=== PATIENT | female | born 1960 | race Caucasian/White ===

== ENCOUNTER 2024-03-06 17:47 | Inpatient (IN) ==
[2024-03-06 19:01] LABS: Basophils # (auto) 0.08 K/uL (0.00-0.20); Basophils % (auto) 0.7 %; Eosinophils # (auto) 0.34 K/uL (0.00-0.50); Hematocrit (blood only) 37.9 % (37.0-47.0); Hemoglobin 12.4 g/dl (12.0-16.0); Immature Granulocytes # (auto) 0.05 K/uL (0.01-0.20); Immature Granulocytes % (auto) 0.4 %; Lymphocytes % (auto) 14.1 %; Mean Corpuscular Hemoglobin 28.1 pg (25.0-34.0); Mean Corpuscular Hgb Conc 32.7 g/dL (32.0-36.0); Mean Corpuscular Volume 85.7 fL (80.0-100.0); Mean Platelet Volume 9.8 fL (9.4-12.4); Monocytes % (auto) 8.8 %; Platelet Count 412 K/uL (130-400); RDW Coefficient of Variation 12.2 % (11.5-14.5); RDW Standard Deviation 38.6 fL (36.4-46.3); Red Blood Count 4.42 M/uL (4.20-5.40); White Blood Count 11.37 K/ul (4.8-10.8)
[2024-03-06 19:14] LABS: Albumin Level 3.9 gm/dl (3.4-5.0); BUN Creatinine Ratio 28.1 (10-20); Bilirubin,Total 0.8 mg/dl (0.2-1.0); Calcium 9.1 mg/dl (8.6-10.3); Creatinine Clr Calc Pharmacy 42.2 ml/min; Globulin 3.8 gm/dl (2.5-4.0); Potassium 4.1 mmol/L (3.5-5.1); Total Protein 7.7 gm/dl (6.0-8.3)
[2024-03-06 19:26] LABS: INR 1.1 (0.9-1.1); Partial Thromboplastin Time 27 Seconds (21-31)
[2024-03-06 19:32] LABS: Troponin I High Sensitivity 63.6 pg/ml (0-14)
[2024-03-06] MEDS: OPTIRAY 320 125ml IV ONE (19:58)
--- NOTE | 2024-03-06 20:31 | Emergency Department Note ---
Impression & Plan CHF exacerbation, Elevated troponin, Swelling of both lower extremities ED Provider Note NAME: LILI AGUILAR AGE: 63 SEX: F : 1960 ARRIVES VIA: Walk-In INFORMANT: Patient, ED PROVIDER(S): Power Bazan MD CHIEF COMPLAINT: Leg swelling HPI: This is a 63-year-old female with history of cardiomyopathy, CHF presenting for leg swelling. Patient notes that bilateral legs have been swollen. They have actually decreasing in size with increased Lasix and compression stockings. However she notes that she has new right-sided leg pain. Is painful to palpation with some redness. She has had previous history of DVT and is not taking blood thinners. She notes she was sent in by the PCP today otherwise. No shortness of breath or chest pain. No pleurisy. No history of PEs. ROS: See above HPI for pertinent positives & negatives. A total of 10 systems reviewed and were otherwise negative. PAST MEDICAL HISTORY: See Below PAST SURGICAL HISTORY: See Below FAMILY HISTORY: See Below SOCIAL HISTORY: See Below HOME MEDICATIONS: See Below ALLERGIES: See Below VITALS: See Below PHYSICAL EXAMINATION: General: resting comfortably in no acute distress Head: Normocephalic and atraumatic Eyes: Normal inspection, extraocular muscles intact Ear, nose, throat: Normal external exam Neck: Normal range of motion Respiratory: lungs clear to auscultation bilaterally Cardiovascular: Regular rate/rhythm, no murmur GI: soft, nontender, no guarding or rebound Extremities: Bilateral lower extremity 2+ pulses, no other deformities swelling with, tender to palpation of anterior ornelas Neuro: The patient awake and alert, appropriately conversive, no focal deficits, symmetric faces Skin: Warm, dry, and intact MEDICAL DECISION MAKING: This is 63-year-old female with history of cardiomyopathy, CHF presenting for leg swelling. Concern for PE, CHF, ACS. -ECG independently interpreted by me with normal sinus rhythm, rate of 87, normal axis, normal QRS, normal QTc, no ST segment elevations consistent with STEMI criteria, T wave inversions in leads I, II and aVL -I was called about this patient as she had a positive troponin. I went to see her emergently. With new right lower extremity pain previous history of DVT, I have high concern for PE clinically. Will do CTA of the chest to rule this out. Patient with a history of CKD with only 1 kidney. I did go over risk/benefits and that time is nature of a PE. She is comfortable with these risks. -Will do DVT study as well to help elucidate for lower extremity edema versus CHF. DVT not noted on tech read -There are significant delay in CT reading however I see no large pulm embolism such a saddle PE or significant pneumonia. Will admit for help with troponin, likely CHF otherwise -Care discussed with Dr. Berry for admission Differential diagnosis: CHF, cardiomyopathy, PE, ACS Independent History obtained from: Diagnostics interpreted by me: ECG: ECG independently interpreted by me with likely sinus rhythm Ventricular rate of 87, normal QRS, normal QTc, no ST segment elevations consistent with STEMI criteria Cardiac Monitoring: An order was placed for continuous cardiac monitoring. The monitor shows a rate of 79 with sinus rhythm. Past Med/Surg History Problem List (Updated 03/07/24 @ 01:03 by Power Bazan MD) Swelling of both lower extremities (Acute) Elevated troponin (Acute) CHF exacerbation (Acute) Acute CHF Swelling of lower extremity Diabetic peripheral neuropathy associated with type 2 diabetes mellitus Cardiomyopathy Proliferative diabetic retinopathy associated with type 2 diabetes mellitus History of amputation of toe Diabetic nephropathy associated with type 2 diabetes mellitus Type 2 diabetes mellitus with insulin therapy Loss of protective sensation of skin of foot Chronic kidney disease, stage 3 (Acute) Dyslipidemia (Acute) Hypertension (Acute) Obesity (BMI 30-39.9) (Acute) PAD (peripheral artery disease) (Acute) Type 2 diabetes mellitus (Acute) Vitamin D deficiency (Acute) Surgical History (Updated 07/21/20 @ 10:36 by Jeovanny Champion PA-C) Hx of section Hx of unilateral nephrectomy History of tonsillectomy Family History (Updated 07/06/19 @ 13:24 by Brendan Vicente MD) Mother Diabetes Stroke Sister Stroke Father Diabetes Social History (Updated 07/06/19 @ 13:24 by Brendan Vicente MD) Smoking Status: Never smoker Hx Alcohol Use: No Preferred Language: Afghan Feels Safe at Home: Yes Allergies Allergies Allergy/AdvReac Type Severity Reaction Status Date / Time ALEX Inhibitors Allergy Verified 11/26/23 09:01 brompheniramine [From Brovex] Allergy Verified 11/26/23 09:01 codeine Allergy Verified 11/26/23 09:01 Home Meds Home Medications Medication Instructions Recorded Confirmed ezetimibe 10 mg tablet 10 mg PO QAM 10/14/18 03/06/24 aspirin 81 mg tablet,delayed 81 mg PO QAM 10/08/19 03/06/24 release (Adult Low Dose Aspirin) metoprolol succinate 50 mg 50 mg PO BID 07/21/20 03/06/24 tablet,extended release 24 hr insulin glargine 100 unit/mL (3 34 unit subcut BID 09/14/22 03/06/24 mL) subcutaneous pen (Lantus Solostar U-100 Insulin) blood-glucose sensor (FreeStyle 05/30/23 03/06/24 Jamal 3 Sensor device) furosemide 40 mg tablet 40 mg PO .COMPLEX 05/30/23 03/06/24 insulin aspart U-100 100 unit/mL See Rx Instructions .Route .COMPLEX 05/30/23 03/06/24 (3 mL) subcutaneous pen (Novolog FlexPen U-100 Insulin aspart) magnesium oxide 400 mg PO QAM 05/30/23 03/06/24 atorvastatin 80 mg tablet 80 mg PO HS 03/06/24 03/06/24 isosorbide mononitrate 60 mg 60 mg PO QAM 03/06/24 03/06/24 tablet,extended release 24 hr Previous Rx's Medication Instructions Recorded BD Ultra-Fine Kinza Pen Needle 32 #100 ea 10/22/19 gauge x 5/32" (pen needle, diabetic) blood sugar diagnostic (FreeStyle #100 ea 07/22/20 Precision Remigio Strips) liraglutide 0.6 mg/0.1 mL (18 mg/3 1.8 mg (0.3 mL) subcut DAILY 02/18/24 mL) subcutaneous pen injector days #27 mL (Victoza 3-Clint) Results & Data (ED) Vital Signs Vital Signs - 24 hr 03/06/24 18:05 03/06/24 20:25 03/06/24 20:34 Temperature 36.5 C Temperature Source Temporal Artery Scan Pulse Rate 95 H 112 H Pulse Rate [Apical] Pulse Rate [Right Finger] Respiratory Rate 18 Respiratory Effort / Characteristics Non-Labored Respiratory Depth Normal Respiratory Pattern Blood Pressure 133/69 Blood Pressure [Right Arm] Blood Pressure Mean 90 Blood Pressure Mean [Right Arm] Pulse Oximetry 94 95 Oxygen Delivery Method Room Air Room Air Sepsis Recent Fever Within 48 Hours No Sepsis New/Unexplained Change in Mental Status No Sepsis Action Taken by Nursing No Action Required 03/06/24 20:34 03/06/24 22:43 03/07/24 00:00 Temperature Temperature Source Pulse Rate Pulse Rate [Apical] 88 Pulse Rate [Right Finger] 84 81 Respiratory Rate 22 20 20 Respiratory Effort / Characteristics Non-Labored Spontaneous Respiratory Depth Normal Respiratory Pattern Regular Blood Pressure Blood Pressure [Right Arm] 141/72 H 147/83 H 129/59 L Blood Pressure Mean Blood Pressure Mean [Right Arm] 95 104 82 Pulse Oximetry 95 95 93 Oxygen Delivery Method Room Air Room Air Room Air Sepsis Recent Fever Within 48 Hours Sepsis New/Unexplained Change in Mental Status Sepsis Action Taken by Nursing 03/07/24 00:19 Temperature Temperature Source Pulse Rate 79 Pulse Rate [Apical] Pulse Rate [Right Finger] Respiratory Rate Respiratory Effort / Characteristics Respiratory Depth Respiratory Pattern Blood Pressure Blood Pressure [Right Arm] Blood Pressure Mean Blood Pressure Mean [Right Arm] Pulse Oximetry Oxygen Delivery Method Sepsis Recent Fever Within 48 Hours Sepsis New/Unexplained Change in Mental Status Sepsis Action Taken by Nursing Laboratory Data 03/06/24 18:30 03/06/24 18:30 Lab Results 03/06/24 03/06/24 Range/Units 18:30 20:12 WBC 11.37 H (4.8-10.8) K/ul RBC 4.42 (4.20-5.40) M/uL Hgb 12.4 (12.0-16.0) g/dl Hct 37.9 (37.0-47.0) % MCV 85.7 (80.0-100.0) fL MCH 28.1 (25.0-34.0) pg MCHC 32.7 (32.0-36.0) g/dL RDW Std Deviation 38.6 (36.4-46.3) fL RDW Coeff of Sreedhar 12.2 (11.5-14.5) % Plt Count 412 H (130-400) K/uL MPV 9.8 (9.4-12.4) fL Immature Gran % (Auto) 0.4 % Neut % (Auto) 73.0 % Lymph % (Auto) 14.1 % Edwards % (Auto) 8.8 % Eos % (Auto) 3.0 % Baso % (Auto) 0.7 % Neut # (Auto) 8.30 H (1.40-6.50) K/uL Lymph # (Auto) 1.60 (1.20-3.40) K/uL Edwards # (Auto) 1.00 H (0.11-0.59) K/uL Eos # (Auto) 0.34 (0.00-0.50) K/uL Baso # (Auto) 0.08 (0.00-0.20) K/uL Immature Gran # (Auto) 0.05 (0.01-0.20) K/uL PT 12.0 (9.0-12.0) Seconds INR 1.1 (0.9-1.1) APTT 27 (21-31) Seconds PTT Ratio 1.0 Sodium 136 (136-145) mmol/L Potassium 4.1 (3.5-5.1) mmol/L Chloride 100 (98-107) mmol/L Carbon Dioxide 27 (21-32) mmol/L Anion Gap 9 (3-11) BUN 50 H (6-23) mg/dl Creatinine 1.78 H (0.6-1.2) mg/dl Est Cr Clr Drug Dosing 42.2 ml/min eGFR 31.89 BUN/Creatinine Ratio 28.1 H (10-20) Glucose 109 H (70-99(Fasting)) mg/dl Calcium 9.1 (8.6-10.3) mg/dl Total Bilirubin 0.8 (0.2-1.0) mg/dl AST 19 (13-39) U/L ALT 12 (7-52) U/L Alkaline Phosphatase 111 H (34-104) U/L Troponin I High Sens 63.6 H* 51.5 H* D (0-14) pg/ml B-Natriuretic Peptide 153 H (0-100) pg/ml Total Protein 7.7 (6.0-8.3) gm/dl Albumin 3.9 (3.4-5.0) gm/dl Globulin 3.8 (2.5-4.0) gm/dl Albumin/Globulin Ratio 1.0 (0.9-2) Administered Medications Discontinued Medications Furosemide (Furosemide 40 Mg/4 Ml Vial) 30 mg IV NOW STA Stop: 03/06/24 23:23 Last Admin: 03/06/24 23:32 Dose: 30 mg Documented By: EMB Ioversol (Optiray 320 125ml) 115 ml IV ONCE ONE Stop: 03/06/24 19:59 Last Admin: 03/06/24 19:58 Dose: 115 ml Documented By: JUAN FRANCISCO Imaging Data Radiologist's Impression: Chest X-Ray 03/06/24 18:11 EXAM: XR chest 1V not portable CLINICAL HISTORY: Chest pain. TECHNIQUE: An X-ray image of the chest is obtained in AP projection. COMPARISON: No prior studies are available for comparison. FINDINGS: Pulmonary Parenchyma: Lungs are clear bilaterally. No evidence of consolidation, collapse, or focal opacities. No pulmonary nodules are identified. No evidence of pleural effusion or pleural thickening. Heart and Mediastinum: Heart size and shape are normal. No mediastinal widening or masses. Mild bilateral hilar vascular congestion is seen. Bony Thorax: Bony thorax appears intact without fractures or deformities. Soft Tissues: Soft tissues overlying the chest wall are unremarkable. IMPRESSION: Mild bilateral hilar vascular congestion is seen. NO other significant abnormality noted. Clinical correlation is advised. Electronically signed by Jefe Astudillo 03-06-2024 8:39 PM Chest CTA 03/06/24 19:34 Exam(s): CTA CHEST IV Amt: 115 ml optiray 320 EXAM: CT Angiography Chest With Intravenous Contrast CLINICAL HISTORY: PE. TECHNIQUE: Axial computed tomographic angiography images of the chest with intravenous contrast. MIPS images were created and reviewed. CTDI is 28 mGy and DLP is 775 mGy-cm. Automated exposure control was utilized for the study. A dose lowering technique was utilized adhering to the principles of ALARA. MIP reconstructed images were created and reviewed. COMPARISON: Chest radiograph 03/06/2024 FINDINGS: Pulmonary arteries: Unremarkable. No pulmonary embolus. Aorta: Mild atherosclerosis. No thoracic aortic aneurysm. Lungs: Interseptal thickening is concerning for pulmonary edema. Mosaic attenuation of the lungs. There is a 7 mm left upper lobe pulmonary nodule. Pleural space: Unremarkable. No significant effusion. No pneumothorax. Heart: Coronary artery calcifications are present. No cardiomegaly. No significant pericardial effusion. No evidence of RV dysfunction. Bones/joints: There are degenerative changes of the spine. No acute fracture. Soft tissues: Unremarkable. Lymph nodes: Unremarkable. No enlarged lymph nodes. IMPRESSION: 1. No pulmonary embolus. 2. Interseptal thickening is concerning for pulmonary edema. 3. Mosaic attenuation of the lungs. This could relate to air trapping, pneumonitis or underlying emphysema. Clinical correlation is recommended. 4. There is a 7 mm left upper lobe pulmonary nodule. Fleischner Society Guidelines for low-risk or high-risk patients suggest a follow-up chest CT at 6-12 months. If unchanged, recommend an additional follow-up CT at 18-24 months due to the morphologic appearance of this nodule. Electronically signed by: Paulette Gaines MD 03/07/24 00:16 AM Discharge Plan Visit Data Chief Complaint: Swelling/Edema to Extremity Stated Complaint: RT LEG SWELLING AND PAINFUL AND A BUMP ON ANKLE ED Provider: Power Bazan Discharge Problem: CHF exacerbation, Elevated troponin, Swelling of both lower extremities Forms Stand Alone Forms: [employer] [facility] Prescriptions Prescriptions: No Action ezetimibe 10 mg tablet 10 mg PO QAM (DME) pen needle, diabetic [BD Ultra-Fine Kinza Pen Needle] 32 gauge x 5/32" needle See Dose Instructions .ROUTE .MEDSUPPLY Qty: 100 3RF Dose Instruction: As directed Rx Instructions: use once daily with victoza (DME) FreeStyle Precision Remigio Strips Strip See Rx Instructions .ROUTE .MEDSUPPLY Qty: 100 3RF Rx Instructions: test blood sugar once daily furosemide 40 mg tablet 40 mg PO .COMPLEX Rx Instructions: 40 mg orally bid alternating with tid; Victoza 3-Clint 0.6 mg/0.1 mL (18 mg/3 mL) pen injector 1.8 mg subcut DAILY 90 Days Qty: 27 3RF Lantus Solostar U-100 Insulin 100 unit/mL (3 mL) insulin pen 34 unit subcut BID insulin aspart U-100 [Novolog FlexPen U-100 Insulin] 100 unit/mL (3 mL) insulin pen See Rx Instructions .ROUTE .COMPLEX Rx Instructions: Inject 18 u with meals plus sliding scale. Reduce to 9 u if active or eating less than usual. up to TDD 60 units aspirin [Adult Low Dose Aspirin] 81 mg tablet,delayed release (DR/EC) 81 mg PO QAM metoprolol succinate 50 mg tablet extended release 24 hr 50 mg PO BID magnesium oxide 400 mg magnesium capsule 400 mg PO QAM (DME) FreeStyle Jamal 3 Sensor Device See Rx Instructions .Route Rx Instructions: As directed atorvastatin 80 mg tablet 80 mg PO HS isosorbide mononitrate 60 mg tablet extended release 24 hr 60 mg PO QAM Referrals Referrals: Promise Sandoval MD [Primary Care Provider] -
--- NOTE | 2024-03-06 20:39 | XRay Report ---
EXAM: XR chest 1V not portable CLINICAL HISTORY: Chest pain. TECHNIQUE: An X-ray image of the chest is obtained in AP projection. COMPARISON: No prior studies are available for comparison. FINDINGS: Pulmonary Parenchyma: Lungs are clear bilaterally. No evidence of consolidation, collapse, or focal opacities. No pulmonary nodules are identified. No evidence of pleural effusion or pleural thickening. Heart and Mediastinum: Heart size and shape are normal. No mediastinal widening or masses. Mild bilateral hilar vascular congestion is seen. Bony Thorax: Bony thorax appears intact without fractures or deformities. Soft Tissues: Soft tissues overlying the chest wall are unremarkable. IMPRESSION: Mild bilateral hilar vascular congestion is seen. NO other significant abnormality noted. Clinical correlation is advised. Electronically signed by Jefe Astudillo 03-06-2024 8:39 PM
--- NOTE | 2024-03-06 23:24 | History & Physical Report ---
Date of Service March 06, 2024 Assessment & Plan (1) Acute CHF: Plan: 63-year-old female with past medical history significant for type 2 diabetes, diabetic peripheral neuropathy, hyperlipidemia, idiopathic cardiomyopathy, chronic diastolic CHF, hypertension, history of CAD, obesity, GERD, CKD stage III, bilateral vitreous hemorrhage, history of renal cell carcinoma, solitary kidney presents with right lower extremity swelling and pain. Patient says her left lower extremity swelling is same as before. But right lower extremity is more swollen since last 2 -3 weeks and progressively getting worse. Last couple of weeks she is having pain in the right lower extremity. And she developed erythema in the right lower extremity about a week ago. Able to put weight on the leg. Denies any fevers. Denies any chest pain. Has shortness of breath on exertion which seems to progressively worsen. Has dry cough. Somewhat constipated. Denies blood in stool or black stools. Micturating okay. No nausea. Appetite is okay. Currently no headache. No dizziness. Vision is okay. No earache or runny nose or sore throat. Hemodynamics are okay. 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 History of chronic right heart failure Will hold home p.o. Lasix Will place on IV Lasix 40 mL twice daily Daily weights and I's and O's Will follow CTA chest Will follow echo Telemetry cardiac consult in a.m. for further recommendation Right lower extremity worsening edema and erythema and pain We will follow Dopplers Empiric Rocephin for possible cellulitis Will follow procalcitonin levels Monitor the response Mild elevation of troponin Denies any chest pain Mostly demand ischemia Will follow serial enzymes and echo Type 2 diabetes Will cut back on light Lantus to 15 units twice daily as patient currently n.p.o. Sliding scale Will monitor CKD stage III Presented creatinine 1.7 close to baseline Will follow repeat labs History of nonobstructive CAD On aspirin, statin and beta-pepe History of renal cell carcinoma status post right nephrectomy in 2001 Peripheral vascular disease Amputation of left toes and amputation of Right fifth toe Status post excision of metatarsal head left foot for osteomyelitis in May 2022 On aspirin and statin Hyperlipidemia On statin and Zetia Hypertension On metoprolol succinate, Imdur and diuretics Will monitor DVT prophylaxis Heparin subcu Disposition Telemetry Full code. History of Present Illness Chief Complaint: Right lower extremity pain and swelling Primary Care Provider: Promise Sandoval MD 63-year-old female with past medical history significant for type 2 diabetes, diabetic peripheral neuropathy, hyperlipidemia, idiopathic cardiomyopathy, chronic diastolic CHF, hypertension, history of CAD, obesity, GERD, CKD stage III, bilateral vitreous hemorrhage, history of renal cell carcinoma, solitary kidney presents with right lower extremity swelling and pain. Patient says her left lower extremity swelling is same as before. But right lower extremity is more swollen since last 2 -3 weeks and progressively getting worse. Last couple of weeks she is having pain in the right lower extremity. And she developed erythema in the right lower extremity about a week ago. Able to put weight on the leg. Denies any fevers. Denies any chest pain. Has shortness of breath on exertion which seems to progressively worsen. Has dry cough. Somewhat constipated. Denies blood in stool or black stools. Micturating okay. No nausea. Appetite is okay. Currently no headache. No dizziness. Vision is okay. No earache or runny nose or sore throat. Hemodynamics are okay. Past medical history. As mentioned above Past surgical history. Amputation of left third toe. Amputation of left second toe. . Colonoscopy. Colonoscopy with 30 mm polyp removed. Removal of right kidney for renal cell cancer. Tonsillectomy and adenoidectomy. Social history. . No smoking. No alcohol use. No drug use. Family history. Mother had diabetes. Osteoarthritis. Father had diabetes. Sister has diabetes. Brother has diabetes. Allergies Allergy/AdvReac Type Severity Reaction Status Date / Time ALEX Inhibitors Allergy Verified 11/26/23 09:01 brompheniramine [From Brovex] Allergy Verified 11/26/23 09:01 codeine Allergy Verified 11/26/23 09:01 Home Medications Medication Instructions Recorded Confirmed Type ezetimibe 10 mg tablet 10 mg PO QAM 10/14/18 03/06/24 History aspirin 81 mg tablet,delayed 81 mg PO QAM 10/08/19 03/06/24 History release (Adult Low Dose Aspirin) BD Ultra-Fine Kinza Pen Needle 32 #100 ea 10/22/19 03/06/24 Rx gauge x 5/32" (pen needle, diabetic) metoprolol succinate 50 mg 50 mg PO BID 07/21/20 03/06/24 History tablet,extended release 24 hr blood sugar diagnostic (FreeStyle #100 ea 07/22/20 03/06/24 Rx Precision Remigio Strips) insulin glargine 100 unit/mL (3 34 unit subcut BID 09/14/22 03/06/24 History mL) subcutaneous pen (Lantus Solostar U-100 Insulin) blood-glucose sensor (FreeStyle 05/30/23 03/06/24 History Jamal 3 Sensor device) furosemide 40 mg tablet 40 mg PO .COMPLEX 05/30/23 03/06/24 History insulin aspart U-100 100 unit/mL See Rx Instructions .Route .COMPLEX 05/30/23 03/06/24 History (3 mL) subcutaneous pen (Novolog FlexPen U-100 Insulin aspart) magnesium oxide 400 mg PO QAM 05/30/23 03/06/24 History liraglutide 0.6 mg/0.1 mL (18 mg/3 1.8 mg (0.3 mL) subcut DAILY 90 02/18/24 03/06/24 Rx mL) subcutaneous pen injector days #27 mL (Victoza 3-Clint) atorvastatin 80 mg tablet 80 mg PO HS 03/06/24 03/06/24 History isosorbide mononitrate 60 mg 60 mg PO QAM 03/06/24 03/06/24 History tablet,extended release 24 hr Past Med/Surg History Problem List (Updated 03/07/24 @ 01:03 by Power Bazan MD) Swelling of both lower extremities (Acute) Elevated troponin (Acute) CHF exacerbation (Acute) Acute CHF Swelling of lower extremity Diabetic peripheral neuropathy associated with type 2 diabetes mellitus Cardiomyopathy Proliferative diabetic retinopathy associated with type 2 diabetes mellitus History of amputation of toe Diabetic nephropathy associated with type 2 diabetes mellitus Type 2 diabetes mellitus with insulin therapy Loss of protective sensation of skin of foot Chronic kidney disease, stage 3 (Acute) Dyslipidemia (Acute) Hypertension (Acute) Obesity (BMI 30-39.9) (Acute) PAD (peripheral artery disease) (Acute) Type 2 diabetes mellitus (Acute) Vitamin D deficiency (Acute) Surgical History (Updated 07/21/20 @ 10:36 by Jeovanny Champion PA-C) Hx of section Hx of unilateral nephrectomy History of tonsillectomy Family History (Updated 07/06/19 @ 13:24 by Brendan Vicente MD) Mother Diabetes Stroke Sister Stroke Father Diabetes Social History (Updated 07/06/19 @ 13:24 by Brendan Vicente MD) Smoking Status: Never smoker Second Hand Exposure: No; Do You Dip or Chew Tobacco: No; Hx Alcohol Use: No Hx Substance Use: No Preferred Language: Romanian Communication Ability: Effective [employer] Super[employer] Required: No Beliefs That Will Affect Care: None Current Living Situation: Spouse and Family Current Living Situation Comment: In laws Other Information That Helps Us Care for You: No Feels Safe at Home: Yes Safety Concerns: Feels Safe At This Time Assistive Devices: Glasses Review of Systems Review of Systems: All systems reviewed & are unremarkable except as noted in HPI & below Physical Exam Physical Exam: General- Not in distress Head- atraumatic Eyes- PERRL. ENT- oropharynx clear Neck- supple, no JVD. Lungs- clear to auscultation no wheezing or crackles. Heart- regular rhythm; no murmur, no gallop. Abdomen- normal bowel sounds, soft, nontender, no distension Extremities- b/l lower extremity edema present Rt >Lt. Mild erythema in distal right lower extremity with mild warmth on palpation. Neuro- alert, oriented PERRL, no facial palsy; no dysarthria; moves extremities Results & Data Results & Data Vital Signs (Past 12 Hours) Vital Signs Temp Pulse Pulse Pulse Resp BP BP 03/06/24 22:43 84 20 147/83 H 03/06/24 20:34 88 22 141/72 H 03/06/24 20:34 03/06/24 20:25 112 H 03/06/24 18:05 36.5 C 95 H 18 133/69 Pulse Ox O2 Del Method 03/06/24 22:43 95 Room Air 03/06/24 20:34 95 Room Air 03/06/24 20:34 95 Room Air 03/06/24 20:25 03/06/24 18:05 94 Room Air Diagnostic Findings Laboratory Results WBC 11.37 K/ul (4.8-10.8) H 03/06/24 18:30 RBC 4.42 M/uL (4.20-5.40) 03/06/24 18:30 Hgb 12.4 g/dl (12.0-16.0) 03/06/24 18:30 Hct 37.9 % (37.0-47.0) 03/06/24 18:30 MCV 85.7 fL (80.0-100.0) 03/06/24 18:30 MCH 28.1 pg (25.0-34.0) 03/06/24 18:30 MCHC 32.7 g/dL (32.0-36.0) 03/06/24 18: RDW Std Deviation 38.6 fL (36.4-46.3) 03/06/24 18: RDW Coeff of Sreedhar 12.2 % (11.5-14.5) 03/06/24 18: Plt Count 412 K/uL (130-400) H 03/06/24 18: MPV 9.8 fL (9.4-12.4) 03/06/24 18:30 Immature Gran % (Auto) 0.4 % 03/06/24 18:30 Neut % (Auto) 73.0 % 03/06/24 18:30 Lymph % (Auto) 14.1 % 03/06/24 18:30 [place] % (Auto) 8.8 % 03/06/24 18:30 Eos % (Auto) 3.0 % 03/06/24 18:30 Baso % (Auto) 0.7 % 03/06/24 18:30 Neut # (Auto) 8.30 K/uL (1.40-6.50) H 03/06/24 18:30 Lymph # (Auto) 1.60 K/uL (1.20-3.40) 03/06/24 18:30 [place] # (Auto) 1.00 K/uL (0.11-0.59) H 03/06/24 18:30 Eos # (Auto) 0.34 K/uL (0.00-0.50) 03/06/24 18:30 Baso # (Auto) 0.08 K/uL (0.00-0.20) 03/06/24 18:30 Immature Gran # (Auto) 0.05 K/uL (0.01-0.20) 03/06/24 18:30 PT 12.0 Seconds (9.0-12.0) 03/06/24 18:30 INR 1.1 (0.9-1.1) 03/06/24 18:30 APTT 27 Seconds (21-31) 03/06/24 18:30 PTT Ratio 1.0 03/06/24 18:30 Sodium 136 mmol/L (136-145) 03/06/24 18:30 Potassium 4.1 mmol/L (3.5-5.1) 03/06/24 18:30 Chloride 100 mmol/L (98-107) 03/06/24 18:30 Carbon Dioxide 27 mmol/L (21-32) 03/06/24 18:30 Anion Gap 9 (3-11) 03/06/24 18:30 BUN 50 mg/dl (6-23) H 03/06/24 18:30 Creatinine 1.78 mg/dl (0.6-1.2) H 03/06/24 18:30 Est Cr Clr Drug Dosing 42.2 ml/min 03/06/24 18:30 eGFR 31.89 03/06/24 18:30 BUN/Creatinine Ratio 28.1 (10-20) H 03/06/24 18:30 Glucose 109 mg/dl (70-99(Fasting)) H 03/06/24 18:30 Calcium 9.1 mg/dl (8.6-10.3) 03/06/24 18:30 Total Bilirubin 0.8 mg/dl (0.2-1.0) 03/06/24 18:30 AST 19 U/L (13-39) 03/06/24 18:30 ALT 12 U/L (7-52) 03/06/24 18:30 Alkaline Phosphatase 111 U/L (34-104) H 03/06/24 18:30 Troponin I High Sens 51.5 pg/ml (0-14) H* D 03/06/24 20:12 B-Natriuretic Peptide 153 pg/ml (0-100) H 03/06/24 18:30 Total Protein 7.7 gm/dl (6.0-8.3) 03/06/24 18:30 Albumin 3.9 gm/dl (3.4-5.0) 03/06/24 18:30 Globulin 3.8 gm/dl (2.5-4.0) 03/06/24 18:30 Albumin/Globulin Ratio 1.0 (0.9-2) 03/06/24 18:30 Impressions Chest X-Ray 03/06/24 18:11 EXAM: XR chest 1V not portable CLINICAL HISTORY: Chest pain. TECHNIQUE: An X-ray image of the chest is obtained in AP projection. COMPARISON: No prior studies are available for comparison. FINDINGS: Pulmonary Parenchyma: Lungs are clear bilaterally. No evidence of consolidation, collapse, or focal opacities. No pulmonary nodules are identified. No evidence of pleural effusion or pleural thickening. Heart and Mediastinum: Heart size and shape are normal. No mediastinal widening or masses. Mild bilateral hilar vascular congestion is seen. Bony Thorax: Bony thorax appears intact without fractures or deformities. Soft Tissues: Soft tissues overlying the chest wall are unremarkable. IMPRESSION: Mild bilateral hilar vascular congestion is seen. NO other significant abnormality noted. Clinical correlation is advised. Electronically signed by Jefe Astudillo 03-06-2024 8:39 PM ECG Additional Comments: ECG. Undetermined rhythm rate of 87. Anterolateral infarct age undetermined. QTc 452 Code Status & VTE Plan VTE Prophylaxis Plan VTE Prophylaxis will be ordered: Yes
[2024-03-06] MEDS: FUROSEMIDE 40 MG/4 ML VIAL IV STA (23:32)
--- NOTE | 2024-03-07 00:17 | CT Scan Report ---
Exam(s): CTA CHEST IV Amt: 115 ml optiray 320 EXAM: CT Angiography Chest With Intravenous Contrast CLINICAL HISTORY: PE. TECHNIQUE: Axial computed tomographic angiography images of the chest with intravenous contrast. MIPS images were created and reviewed. CTDI is 28 mGy and DLP is 775 mGy-cm. Automated exposure control was utilized for the study. A dose lowering technique was utilized adhering to the principles of ALARA. MIP reconstructed images were created and reviewed. COMPARISON: Chest radiograph 03/06/2024 FINDINGS: Pulmonary arteries: Unremarkable. No pulmonary embolus. Aorta: Mild atherosclerosis. No thoracic aortic aneurysm. Lungs: Interseptal thickening is concerning for pulmonary edema. Mosaic attenuation of the lungs. There is a 7 mm left upper lobe pulmonary nodule. Pleural space: Unremarkable. No significant effusion. No pneumothorax. Heart: Coronary artery calcifications are present. No cardiomegaly. No significant pericardial effusion. No evidence of RV dysfunction. Bones/joints: There are degenerative changes of the spine. No acute fracture. Soft tissues: Unremarkable. Lymph nodes: Unremarkable. No enlarged lymph nodes. IMPRESSION: 1. No pulmonary embolus. 2. Interseptal thickening is concerning for pulmonary edema. 3. Mosaic attenuation of the lungs. This could relate to air trapping, pneumonitis or underlying emphysema. Clinical correlation is recommended. 4. There is a 7 mm left upper lobe pulmonary nodule. Fleischner Society Guidelines for low-risk or high-risk patients suggest a follow-up chest CT at 6-12 months. If unchanged, recommend an additional follow-up CT at 18-24 months due to the morphologic appearance of this nodule. Electronically signed by: Paulette Gaines MD 03/07/24 00:16 AM
--- OUTSIDE RECORDS SUMMARY | 2024-03-07 00:47 | External Medical Summary | Summary of Care ---
Author Name Unknown Organization [facility] Address [address] [facility] [address] Phone [phone] Care Team Providers Care Hotel Controller Name Role Phone Promise Sandoval MD Primary Care Provide r Reason for Visit * Auth/Cert Specialty Diagnoses / Procedures Referred By Adrianne t Referred To Contact Diagnoses Colon polyp Colon polyp [K63.5] Procedures COLONOSCOPY, FLEX, W/ ENDOSCOPIC MUCOSAL RESECTION COLONOSCOPY, FLEXIBLE; WITH ENDOSCOPIC MUCOSAL RESECTION Kell Santos MD [address] [place] [address] Phone: tel: fax: OR [facility], Operating Room, [facility] - 4th Floor [address] [facility] [place] [address] Phone: tel: Referral ID Status Reason Start Date Expiration Date Visits Re quested Visits Authorized [id number] Encounter Details Date Type Department Care Team (Latest Contact Info) Description 01/15/2024 8:37 AM EST - 01/15/2024 11:25 AM EST Hospital Encounter OR [facility], Operating Room, [facility] - 4th Floor [address] [facility] [place] [phone] Kell Santos MD [address] [place] [address] Colonoscopy Discharge Disposition: Home - Self Care Allergies Active Allergy Reactions Criticality Noted Date Comments Sherwin Inhibitors Cough 06/19/2011 Brovex Cb Other (Please comment) High 04/08/2010 confusion Codeine Other (Please comment) 04/03/2016 confusion documented as of this encounter (statuses as of 01/15/2024) Medications FREESTYLE LITE TEST STRPIndications:DM type 2, goal A1c below 7 testing three times a day 300 Strip 0 08/04/19 14 Active Aspirin 81 MG Tablet Take 1 Tablet by mouth every evening. Active B Complex Vitamins (VITAMIN B COMPLEX) Tablet Take 1 Tablet by mouth in the morning. Active Docusate Sodium 100 MG Oral Capsule Take 2 Capsules by mouth every evening. Active BD Pen Needle Kinza U/F 32G X 4 MM Use with insulin-6 times daily DxE11.9 540 Each 01/05/20 21 Active Insulin Syringe-Needle U-100 31G X 5/16" 1 ML USE TO INJECT 5 TIMES DAILY 450 Each 01/05/20 21 Active Metoprolol Succinate ER 50 MG Oral Tablet Extended Release 24 Hour (Toprol XL) Take 1 Tablet by mouth in the morning and 1 Tablet before bedtime. 200 Tablet 3 09/17/2023 10:08 AM EDT 11/21/19 23 Active Victoza 18 MG/3ML Subcutaneous Solution Pen-injector (Liraglutide) inject 1.8 mg (0.3 mL) under the skin daily for 90 days 27 mL 3 12/24/2023 9:22 AM EDT 01/16/20 23 Active Lantus SoloStar 100 UNIT/ML Subcutaneous Solution Pen-injectorIndica tions:Type 2 diabetes mellitus with stage 3b chronic kidney disease, with long-term current use of insulin (HCC) INJECT 50 UNITS UNDER THE SKIN TWO TIMES A DAY. 90 mL 3 11/22/2023 2:12 PM EDT 02/06/20 23 024 Active Additional Information Patient taking differently: 34 Units BID (.AM/PM), Reported on 01/15/2024 Atorvastatin Calcium 80 MG Oral Tablet (Lipitor)Indicatio ns:Dyslipidemia, goal LDL below 70 TAKE ONE TABLET BY MOUTH EVERY MORNING 90 Tablet 3 12/10/2023 3:01 PM EDT 03/18/19 24 025 Active Furosemide 40 MG Oral Tablet (Lasix)Indications :HTN, goal below 140/90 take 2 tablets by mouth one day alternating with three tablets the next day 235 Tablet 3 01/01/2024 1:58 PM EDT 04/23/19 24 Active Isosorbide Mononitrate ER 60 MG Oral Tablet Extended Release 24 Hour (Imdur)Indications :Idiopathic cardiomyopathy (HCC),HTN, goal below 140/90 TAKE ONE TABLET BY MOUTH EVERY MORNING 90 Tablet 1 12/10/2023 3:01 PM EDT 05/03/19 24 Active Magnesium 400 MG Oral Tablet Take 1 Tablet by mouth at bedtime. Active Ezetimibe 10 MG Oral Tablet (Zetia)Indications :Dyslipidemia, goal LDL below 100 TAKE 1 TABLET BY MOUTH DAILY 90 Tablet 3 11/02/2023 9:39 AM EDT 08/05/19 24 025 Active Additional Information Patient taking differently: 10 mg Oral QPM-1999, Reported on 01/15/2024 Famotidine 20 MG Oral Tablet (Pepcid)Indication s:Gastroesophageal reflux disease without esophagitis Take 1 Tablet by mouth daily. 90 Tablet 2 12/17/2023 4:42 PM EDT 09/23/19 24 025 Active Additional Information Patient taking differently:20 mg OralDaily(AM), Reported on 01/15/2024 NovoLOG FlexPen 100 UNIT/ML Subcutaneous Solution Pen-injectorIndica tions:Type 2 diabetes mellitus with hemoglobin A1c goal of less than 7.0% ([facility]) INJECT 25 UNITS WITH MEALS DIRECTED 75 mL 3 12/23/2023 6:55 AM EDT 09/25/19 24 Active Hair Skin Nails Oral Capsule Take 2 Capsules by mouth in the morning. Active Na Sulfate-K Sulfate-Mg Sulf 17.5-3.13-1.6 GM/177ML Oral Solution (Suprep Bowel Prep Kit) Evening before colonoscopy: Drink the entire contents of one 6 oz bottle, diluted to a final volume of 480 mL (16 oz). Then drink 2 additional containers of water each (filled to the 16-ounce line) over the next hour, for an additional volume of 960 mL (32 oz). Morning of the colonoscopy (10 to 12 hours after the evening dose): Repeat entire process with the second 6 oz bottle: Drink entire contents of second bottle diluted to a final volume of 480 mL (16 oz); then drink 2 additional containers of water (each filled to the 16-ounce line) over the next hour, for an additional volume of 960 mL (32 oz). Complete at least 2 hours before the procedure. 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 08/22/2021 Hypertensive kidney disease with stage 3b chronic kidney disease 08/10/2021 Gastroesophageal reflux disease without esophagi tis 07/29/2020 Type 2 diabetes mellitus wit h stage 3b chronic kidney disease, with long-term current use of insulin 07/12/2020 Overview: Per CKD protocol Severe obesity with body mas s index (BMI) of 35.0 to 39.9 with serious comorbidity 06/15/2019 DM type 2 with diabetic peripheral neuropathy Type 2 diabetes mellitus wit h hyperglycemia, with long-term current use of insulin 09/19/2017 Status post amputation of lesser toe of right fo ot 04/03/2016 HTN, goal below 140/90 09/21/2014 Dyslipidemia, goal LDL below 70 06/22/2010 History of renal cell carcinoma Overview (07/20/2009): renal cell carcinoma Idiopathic cardiomyopathy Solitary kidney, acquired documented as of this encounter (statuses as of 01/15/2024) Resolved Problems Problem Noted Date Diagnosed Date Resolved Date Type 2 diabetes mellitus wit h foot ulcer (CODE) 03/06/2022 10/08/2022 Peripheral vascular disease 03/06/2022 10/08/2022 Stage 3 chronic kidney disease 03/06/2022 03/06/2022 Non-pressure chronic ulcer o f other part of left foot with fat layer exposed 03/06/2022 023 Status post amputation of great toe, left 08/10/2021 08/22/2021 Chronic kidney disease, stage 3b 08/16/2020 10/08/2022 Overview: Per CKD protocol Type 2 diabetes mellitus wit h proliferative diabetic retinopathy with macular edema, bilateral 03/08/2020 08/22/2021 Type 2 diabetes mellitus wit h retinopathy of both eyes, with long-term current use of insulin 09/22/2018 08/22/2021 Lower limb amputation, great toe, left 07/15/2018 08/10/2021 Overview (08/10/2021): Historical- please resolve/ update code to Z89.412- Acquired absence of Left Great Toe S/P amputation of lesser toe, left 07/15/2018 08/22/2021 Chronic osteomyelitis of lef t foot with draining sinus 07/15/2018 07/15/2018 Type 2 diabetes mellitus wit h stage 3 chronic kidney disease, with long-term current use of insulin 03/31/2018 07/14/2020 Overview: Per CKD protocol PAD (peripheral artery disease) 09/19/2017 02/06/2019 Overview (02/06/2019): Covered in E11.42 dm2 w/PVD combo code CKD (chronic kidney disease) stage 3, GFR 30-59 ml/min 06/11/2017 12/17/2018 Overview: Per CKD protocol #1 Proliferative diabetic retin opathy without macular edema associated with type 2 diabetes mellitus 10/24/2015 09/19/2017 Overview (12/04/2017): ICD-10 update of inactive term Thrombophlebitis of superfic ial veins of left lower extremity 07/26/2015 09/19/2017 Asthma, moderate persistent 11/11/2013 09/19/2017 DM type 2 causing renal disease 06/22/2010 09/21/2014 Severe obesity with body mas s index (BMI) of 35.0 to 39.9 with serious comorbidity 06/13/2010 Overview (12/18/2017): ICD-10 update of inactive diagnosis Other and unspecified hyperlipidemia 02/06/2019 Overview (02/06/2019): duplicate Moderate COPD (chronic obstr uctive pulmonary disease) 11/11/2013 documented as of this encounter (statuses as of 01/15/2024) Immunizations Name Administration Dates Next Due COVID-19 mRNA, LNP-s, No Pre serve, 2-Dose Series (Pfizer) 02/28/2021,02/07/2021 COVID-19, LNP-s, No Preserve , Ramirez-sucrose, Ages 12+ (Pfizer) 08/22/2021 Pneumococcal Polysaccharide PPV23 (Pneumovax) 12/03/2009 Seasonal Influenza Vac., MDV , IM, 0.5 mL (Fluzone) 11/11/2013,02/06/2011,12/03/2009 Seasonal Influenza, Quadriva lent, No Preserve, IM 12/27/2015 TDAP, Age 7 and older, IM (Adacel) 02/06/2011 documented as of this encounter Social History Tobacco Use Types Packs/Day Years Used Date Smoking Tobacco: Never Smokeless Tobacco: Never Alcohol Use Standard Drinks/Week Comments No 0 (1 standard drink = 0.6 oz pur e alcohol) PHQ-2 Answer Date Recorded PHQ-2 Score 0 02/11/2019 Hunger Vital Sign Answer Date Recorded Worried About Running Out of Food in the Last Ye ar Never true 02/11/2019 Ran Out of Food in the Last Year Never true 02/11/2019 Utilities Answer Date Recorded Do you have trouble paying y our heating, water, or electric bill? (Adult - for ages 18 years and over) Not on file 08/20/2023 Is your family able to pay t he heat, water, or electric bill? (Household - for ages 0-17 years) Not on file 08/20/2023 Does your family have access to good internet? (Household - for ages 0-17 years) Not on file 08/20/2023 Social Connections Answer Date Recorded How often do you feel lonely or isolated from those around you? (Adult - for ages 18 years and over) Not on file 08/20/2023 Comments No Sex and Gender Information Value Date Recorded Sex Assigned at Not on file Legal Sex Female 6:47 AM EST Gender Identity Not on file Sexual Orientation Not on file documented as of this encounter Last Filed Vital Signs Vital Sign Reading Time Taken Comments Blood Pressure 127/59 01/15/2024 11:16 AM EST Pulse 72 01/15/2024 11:16 AM EST Temperature 36 C (96.8 F) 01/15/2024 11:16 AM EST Respiratory Rate 16 01/15/2024 11:16 AM EST Oxygen Saturation 95% 01/15/2024 11:16 AM EST Inhaled Oxygen Concentration - - Weight 108.9 kg (240 lb) 01/15/2024 8:45 AM EST Height 172.7 cm (5' 7.99") 01/15/2024 8:45 AM ES T Body Mass Index 36.5 01/15/2024 8:45 AM EST documented in this encounter H&P Notes * Kell Santos MD - 01/15/2024 8:50 AM EST Endoscopy Pre-Procedure Assessment Name: Gina Allison Date: 01/15/2024 Time: 8:50 AM Procedure(s): Colonoscopy; with Indication(s) of colon polyp resection Endoscopy Pre-Procedure Assessment: Prior to the procedure, the patient was identified. The patient's history, medications and allergies were reviewed as per the Anesthesia Assessment. The patient is competent. The risks and benefits of the proposed procedure and the planned sedation were discussed with the patient. All questions were answered and informed consent for the procedure was obtained. BP 154/100 | Pulse 89 | Temp 35.6 C (96.1 F) | Resp 18 | Ht 1.727 m (5' 7.99") | Wt 108.9 kg (240 lb) | LMP 05/31/2014 | SpO2 98% | BMI 36.50 kg/m | BSA 2.29 m Review of patient's allergies indicates: Allergen Reactions Brovex Cb Other (Please comment) confusion Sherwin Inhibitors Cough Codeine Other (Please comment) confusion Prior to Admission medications Medication Sig Last Dose Discont. Magnesium Oxide 400 MG Oral Tablet magnesium 400 mg (as magnesium oxide) tablet 01/14/2024 Hair Skin Nails Oral Capsule Take 2 Capsules by mouth in the morning. 01/14/2024 Na Sulfate-K Sulfate-Mg Sulf 17.5-3.13-1.6 GM/177ML Oral Solution (Suprep Bowel Prep Kit) Evening before colonoscopy: Drink the entire contents of one 6 oz bottle, diluted to a final volume of 480 mL(16 oz). Then drink 2 additional containers of water each (filled to the 16-ounce line) over the next hour, for an additional volume of 960 mL (32 oz). Morning of the colonoscopy (10 to 12 hours after the evening dose): Repeat entire process with the second 6 oz bottle: Drink entire contents of second bottle diluted to a final volume of 480 mL (16 oz); then drink 2 additional containers of water (each filled to the 16-ounce line) over the next hour, for an additional volume of 960 mL (32 oz). Complete at least 2 hours before the procedure. 01/14/2024 NovoLOG FlexPen 100 UNIT/ML Subcutaneous Solution Pen-injector INJECT 25 UNITS WITH MEALS DIRECTED 01/14/2024 Famotidine 20 MG Oral Tablet (Pepcid) Take 1 Tablet by mouth daily. Patient taking differently: Take 1 Tablet by mouth in the morning. 01/15/2024 Morning Ezetimibe 10 MG Oral Tablet (Zetia) TAKE 1 TABLET BY MOUTH DAILY Patient taking differently: Take 1 Tablet by mouth every evening. 01/14/2024 Magnesium 400 MG Oral Tablet Take 1 Tablet by mouth at bedtime. 01/14/2024 Isosorbide Mononitrate ER 60 MG Oral Tablet Extended Release 24 Hour (Imdur) TAKE ONE TABLET BY MOUTH EVERY MORNING 01/15/2024 Morning Furosemide 40 MG Oral Tablet (Lasix) take 2 tablets by mouth one day alternating with three tabletsthe next day 01/14/2024 Atorvastatin Calcium 80 MG Oral Tablet (Lipitor) TAKE ONE TABLET BY MOUTH EVERY MORNING 01/14/2024 Lantus SoloStar 100 UNIT/ML Subcutaneous Solution Pen-injector INJECT 50 UNITS UNDER THE SKIN TWO TIMES A DAY. Patient taking differently: 34 Units in the morning and 34 Units before bedtime. 01/14/2024 Victoza 18 MG/3ML Subcutaneous Solution Pen-injector (Liraglutide) inject 1.8 mg (0.3 mL) under theskin daily for 90 days Past Week Metoprolol Succinate ER 50 MG Oral Tablet Extended Release 24 Hour (Toprol XL) Take 1 Tablet by mouth in the morning and 1 Tablet before bedtime. 01/15/2024 at 6:30 AM BD Pen Needle Kinza U/F 32G X 4 MM Use with insulin-6 times daily DxE11.9 01/14/2024 Insulin Syringe-Needle U-100 31G X 5/16" 1 ML USE TO INJECT 5 TIMES DAILY 01/14/2024 Docusate Sodium 100 MG Oral Capsule Take 2 Capsules by mouth every evening. 01/14/2024 B Complex Vitamins (VITAMIN B COMPLEX) Tablet Take 1 Tablet by mouth in the morning. 01/14/2024 Aspirin 81 MG Tablet Take 1 Tablet by mouth every evening. Past Week FREESTYLE LITE TEST STRP testing three times a day 01/14/2024 Na Sulfate-K Sulfate-Mg Sulf 17.5-3.13-1.6 GM/177ML Oral Solution (Suprep Bowel Prep Kit) Take 177 mL by mouth in the morning and 177 mL before bedtime. Do all this for 1 day. Follow prep instructions. Semaglutide(0.25 or 0.5MG/DOS) 2 MG/3ML Solution Pen-injector (Ozempic) INJECT 0.5MG UNDER THE SKINEVERY SEVEN DAYS Yes Physical Exam: Mental Status Examination: alert and oriented. Airway Examination: normal oropharyngeal airway and neck mobility. Respiratory Examination: clear to auscultation. CV Examination: Regular rate and rythm, no murmurs. ASA Grade: II - A patient with mild systemic disease. After reviewing the risks and benefits, the patient was deemed in satisfactory condition to undergothe procedure. The anesthesia plan was to use general anesthesia. Patient was explained in detail regarding risks, benefits, limitations and alternatives of the above endoscopic procedure. Risks of intravenous sedation used for procedure were also explained. Risks include, but not limited to perforation, bleeding, infection, respiratory distress, cardiac arrest and . Risk of acute pancreatitis and necrosis if ERCP is done. Patient is also aware about the possibility of missed lesion. Patient's questions were answered. The patient verbalized understandingthe information and agreed to undergo the procedure. Discussed with the patient that he/she is at an explicit higher risk for complications in comparison to other patients Patient with a complex colon polyp requiring endoscopic resection, utilizing any of the potential modalities of EMR, ESD or FTRD. The proposed procedure was discussed in detail with the patient and family. All feasible options were reviewed with the appropriate indications and expected outcomes. While the usual outcome of elective endoscopic polyp resection is an uncomplicated procedure, advancedpolypectomy is not without risk to the patient. This procedure is considered of a significantly higher risk of complications. The technique of EMR, ESD and FTRD was discussed. The benefit of the procedure is to remove the polyp which otherwise could potentially turn into invasive malignancy. The alternative options including to not perfrom the procedure were discussed. The option of referral to surgery with segmental, cordelia or total coloctomy with or without need for colostomy was discussed. The risks including but not limited to: Immediate and delayed perforation requiring repeat endoscopy, urgent or nonurgent surgical intervention with colonic resection and creation of a colostomy and need for multiple surgical interventions, immediate and delayed bleeding causing hemodynamic instability requiring blood transfusion or consulting with IR for embolization, infections, postpolypectomysyndrome, leakage requiring IR drain placement, admission to the hospital, recurrence of the polyp (non-therapeutic procedure), chronic pain syndromes and problems associated with perforation causingpneumoperitoneum such as shoulder pain, pneumothorax, hypercarbia or air embolis. After thorough consideration of the above, the patient and/or the appropriate legal international account representative gave written and verbal informed consent to the procedure. Kell Santos MD 01/15/2024 documented in this encounter Procedure Notes * Sonya Gusman DO - 01/15/2024 8:51 AM ESTAssociated Order(s): COLONOSCOPY [facility] Patient Name: Gina Allison Procedure Date: 01/15/2024 8:51 AM Date of : 1960 Admit Type: Outpatient Note Status: Finalized Date of : 1960 Admit Type: Outpatient Age: 63 Room: OR 5 Gender: Female Note Status: Finalized Procedure: Colonoscopy Indications: Therapeutic procedure for colon polyps Providers: eKll Santos MD (Doctor) Referring MD: Sonya Gusman DO, Doriann Whitaker Lavery, MD Medicines: General Anesthesia Complications: No immediate complications. Procedure: Pre-Anesthesia Assessment: - Prior to the procedure, a History and Physical was performed, and patient medications, allergies and sensitivities were reviewed. The patient's tolerance of previous anesthesia was reviewed. - The risks and benefits of the procedure and the sedation options and risks were discussed with the patient. All questions were answered and informed consent was obtained. - Patient identification and proposed procedure were verified prior to the procedure by the physician and the nurse. The procedure was verified in the procedure room. - Pre-procedure physical examination revealed no contraindications to sedation. After I obtained informed consent, the scope was passed under direct vision. All instruments were visually inspected immediately before and after removal from the patient to ensure they are fully intact. Throughout the procedure, the patient's blood pressure, pulse, and oxygen saturations were monitored continuously. The was introduced through the anus and advanced to the descending colon to examine a polypectomy site. This was the intended extent. The colonoscopy was performed without difficulty. The patient tolerated the procedure well. The quality of the bowel preparation was good. Findings & Specimens: A 30 mm polyp was found in the sigmoid colon. The polyp was flat, sessile, Lynn classification IIa (superficial, elevated) and non-granular lateral spreading and found to be Kudo Pit Pattern Type IV(as viewed with Narrow Band Imaging). Preparations were made for endoscopic submucosal dissection. Chromoscopy with indigo carmine using irrigation chromoendoscopy technique was done to liborio the borders of the lesion. Demarcation of the lesion was performed to clearly identify boundaries of the lesion. 30 mL of a 1:40,000 solution of epinephrine with indigo carmine was injected with adequate lift of the lesion from the muscularis propria. A circumferential incision around the lesion into the submucosawas performed with a dual knife. The lesion was then dissected from the underlying deep layers with the electrocautery knife and retrieved with a cap. Resection and retrieval were complete. Verification of patient identification for the specimen was done by the physician and nurse using the patient's name and date. The pathology specimen was placed into Bottle A. The decision was made to use sutures to close a defect after mucosal resection. The endoscope was removed, the OverStitch device was attached to the proximal and distal ends of the endoscope. The scope was reinserted. The device was loaded with 2.0 polypropylene suture. A total of one sutures in a running fashion were placed with cinches on both ends. Excellent tissue approximation was noted. Area was tattooed with an injectionof 1 mL of Spot (carbon black). Impression: - One 30 mm polyp in the sigmoid colon, removed with endoscopic submucosal dissection. Tattooed. Recommendation: - Discharge patient to home. - Await pathology results. - Repeat colonoscopy for surveillance based on pathology results. - Return to referring physician. Kell Santos MD 01/15/2024 10:24:49 AM This report has been signed electronically. Estimated Blood Loss: Estimated blood loss: none. documented in this encounter Nursing Notes * Cathy Cancino RN - 01/15/2024 10:17 AM EST Colonoscopy completed. Pt lamberto procedure well. Sedated by GUARD SUPERVISOR. See anesthesia record for VS and medications given. Abd soft. Airway patent. Pt to recovery on L side with HOB elevated. Report to recovery room nurse. Specimen and location verified by physician. Bedside cleaning done by Kalie Rodriguez RN. * Ana Tena RN - 01/15/2024 9:[address] Quispe consulted about EKG rhythm; approved to move forward with procedure. documented in this encounter Plan of Treatment Upcoming Encounters Date Type Department Care Team (Late st Contact Info) Description 03/20/2024 8:40 AM EST Office Visit Family Medicine [address] [place] [phone] Promise Sandoval MD [address] [place] [address] [place] [address] 03/26/2024 8:30 AM EST Office Visit Cardiology [address] [place] [address] Liborio Ennis PA-C [address] [place] [address] 05/04/2024 9:00 AM EST Imaging Radiology [address] [place] [address] 08/26/2024 9:00 AM EDT Office Visit Nephrology, [facility] [address] [place] [address] Zemaitis, Maryjo Winston PA-C [address] [place] [address] 09/15/2024 8:00 AM EDT Office Visit Cardiology, [facility] [address] [facility] [place] [address] Sonya Olivera CRNP [address] [facility] [place] [address] 11/27/2024 9:00 AM EDT Imaging Radiology [address] [place] [address] Pending Results Name Type Priority Associated Diagnoses Date /Time SURGICAL PATHOLOGY Pathology Routine 2023 10:20 AM EST Scheduled Orders Name Type Priority Associated Diagnoses Orde r Schedule SURGICAL PATHOLOGY Pathology Routine One Ti me for 1 Occurrences starting 01/15/2024 until 01/15/2024, 1 completed Scheduled Procedures Name Priority Associated Diagnoses Date/Ti me COLONOSCOPY, FLEXIBLE; WITH ENDOSCOPIC MUCOSAL RESECTION Recall Colon polyp 01/15/2024 8:54 AM EST Health Maintenance Due Date Last Done Comments HIV Screening 1976 Hepatitis C Screening 08/07/1979 HPV/Co-Test 08/07/1991 Cologuard 2006 Fecal Occult Blood Test 2006 Sigmoidoscopy 2006 Pneumococcal Vaccine: Pediatrics (0 to 5 Years) and At-Risk Patients (6 to 64 Years) (2 of 2 - PCV) 12/03/2010 12/03/2009 Zoster Vaccines (1 of 2) 08/07/2011 Depression Screening 02/12/2020 02/11/2019 DTap/Tdap Vaccines (2 - Td or Tdap) 02/06/2021 02/06/2011 Diabetic Foot Exam 07/29/2021 07/29/2020, 1 04/14/2018, 12/24/2017, Additional history exists COVID-19 Vaccine ( season) 2023 08/22/2021, 02/28/2021, 02/07/2021 Influenza Vaccine (FLU shot) (#1) 2023 12/27/2015, 11/11/2013, 02/06/2011, Additional history exists HbA1c 05/25/2024 11/26/2023, 05/02, 09/28/2022, Additional history exists CKD HGB USE SMARTSET 89262 05/27/202405/27, 05/17/2023, 05/17/2023, Additional history exists GFR 06/29/2024 12/30/2023, 05/02, 08/03/2022, Additional history exists Cervical Cancer Screening 07/10/2024 Pap Smear 07/10/2024 07/10/2021, 10/02, 10/09/2017, Additional history exists Diabetic Eye Exam 11/17/2024 11/18/2023, , 11/18/2023, Additional history exists Mammogram 11/21/2024 11/22/2023, 11/03, 11/16/2022, Additional history exists Albumin/Creatinine Ratio 12/29/2024 024, 09/28/2022, 08/03/2022, Additional history exists CKD PHOS USE SMARTSET 01526 12/29/202412/03, 05/17/2023, 08/03/2022, Additional history exists Colonoscopy 01/14/2034 01/15/2024, 10/02, 10/16/2023, Additional history exists Colorectal Cancer Screening 01/14/2034 HPV (Gardasil) Vaccine Aged Out No lo nger eligible based on patient's age to complete this topic Hepatitis B Vaccine Aged Out No longe r eligible based on patient's age to complete this topic MENINGOCOCCAL (MENACTRA/MENVEO) Aged Out No longer eligible based on patient's age to complete this topic documented as of this encounter Medical Devices Not on filedocumented as of this encounter Procedures Procedure Name Priority Date/Time Associated Diagnosis Comments GLUCOSE METER, POINT OF CARE VICTORIA 01/15/2024 8:59 AM EST COLONOSCOPY 01/15/2024 8:51 AM EST documented in this encounter Results * (ABNORMAL) GLUCOSE METER, POINT OF CARE (01/15/2024 8:59 AM EST) GLUCOSE - POCT 146(H) 70 - 120 mg/dL 01/15/2024 9:02 AM EST [facility] Blood Whole blood specimen / Unknown 01/15/2024 8:59 AM EST 01/15/2024 9:02 AM EST us Kell Santos MD LAB POINT OF CARE T EST DOCKED DEVICE UNSOLICITED RESULTS Final Result [facility] [address] [place] [address] * COLONOSCOPY (01/15/2024 8:51 AM EST) 01/15/2024 8:51 AM EST Narrative Procedure Note Sonya Gusman DO - 01/15/2024 8:51 AM EST [facility] Patient Name: Gina Allison Procedure Date: 01/15/2024 8:51 AM Date of : 1960 Admit Type: Outpatient Note Status:Finalized Date of : 1960 Admit Type: Outpatient Age: 63 Room: OR 5 Gender: Female Note Status: Finalized Procedure: Colonoscopy Indications: Therapeutic procedure for colon polyps Providers: Kell Santos MD (Doctor) Referring MD: Sonya Gusman DO, Promise Sandoval MD Medicines: General Anesthesia Complications: No immediate complications. Procedure: Pre-Anesthesia Assessment: - Prior to the procedure, a History and Physicalwas performed, and patient medications, allergies and sensitivities werereviewed. The patient's tolerance of previous anesthesia was reviewed. - The risks and benefits of the procedure and thesedation options and risks were discussed with the patient. All questions wereanswered and informed consent was obtained. - Patient identification and proposed procedurewere verified prior to the procedure by the physician and the nurse. The procedure wasverified in the procedure room. - Pre-procedure physical examination revealed nocontraindications to sedation. After I obtained informed consent, the scope waspassed under direct vision. All instruments were visually inspected immediatelybefore and after removal from the patient to ensure they are fully intact. Throughout the procedure, the patient's bloodpressure, pulse, and oxygen saturations were monitored continuously. The was introducedthrough the anus and advanced to the descending colon to examine a polypectomy site.This was the intended extent. The colonoscopy was performed without difficulty. Thepatient tolerated the procedure well. The quality of the bowel preparation wasgood. Findings & Specimens: A 30 mm polyp was found in the sigmoid colon. The polyp was flat,sessile, Lynn classification IIa (superficial, elevated) and non-granular lateral spreading and foundto be Kudo Pit Pattern Type IV (as viewed with Narrow Band Imaging). Preparations were made forendoscopic submucosal dissection. Chromoscopy with indigo carmine using irrigation chromoendoscopytechnique was done to liborio the borders of the lesion. Demarcation of the lesion was performed to clearlyidentify boundaries of the lesion. 30 mL of a 1:40,000 solution of epinephrine with indigo carmine wasinjected with adequate lift of the lesion from the muscularis propria. A circumferential incision aroundthe lesion into the submucosa was performed with a dual knife. The lesion was then dissected from theunderlying deep layers with the electrocautery knife and retrieved with a cap. Resection andretrieval were complete. Verification of patient identification for the specimen was done by the physician andnurse using the patient's name and date. The pathology specimen was placed into Bottle A. Thedecision was made to use sutures to close a defect after mucosal resection. The endoscope was removed,the OverStitch device was attached to the proximal and distal ends of the endoscope. The scopewas reinserted. The device was loaded with 2.0 polypropylene suture. A total of one sutures in arunning fashion were placed with cinches on both ends. Excellent tissue approximation was noted. Areawas tattooed with an injection of 1 mL of Spot (carbon black). Impression: - One 30 mm polyp in the sigmoid colon, removedwith endoscopic submucosal dissection. Tattooed. Recommendation: - Discharge patient to home. - Await pathology results. - Repeat colonoscopy for surveillance based onpathology results. - Return to referring physician. Kell Santos MD 01/15/2024 10:24:49 AM This report has been signed electronically. Estimated Blood Loss: Estimated blood loss: none. Sonya Gusman DO GASTRO LOWER Final Result documented in this encounter Administered Medications Inactive Administered Medications - up to 3 most recent administrations Medication Order MAR Action Action Date Dose Rate Site Isolyte-S pH 7.4 infusion Intravenous, at 10 mL/hr, Plasma-LYTE 148, isolyte-S, and isolyte-S pH 7.4 are considered equivalent - including for MAR barcode scanning., CONTINUOUS, Starting on Sat01/15/24 at 0945, Until Sat01/15/24 at 1525 Continue from Pre-Op 01/15/2024 9:45 AM EST 10 mL/hr New Bag 01/15/2024 9:45 AM EST 10 mL/hr New Bag 01/15/2024 9:12 AM EST documented in this encounter Active and Recently Administered Medications Times are shown in EST. Scheduled Medication Order 01/13/2024 01/14/2024 01/15/2024 cefOXitin in dextrose (Mefoxin) ivpb 2 g (COMPLETED) 2 g, IV Piggyback, ONCE, 1 dose, On Sat01/15/24 at 0930 0919 (Given - Provid er: Elisa Fritz CRNA) Continuous Medication Order 01/13/2024 01/14/2024 01/15/2024 Isolyte-S pH 7.4 infusion Intravenous, at 10 mL/hr, Plasma-LYTE 148, isolyte-S, and isolyte-S pH 7.4 are considered equivalent - including for MAR barcode scanning., CONTINUOUS, Starting on Sat01/15/24 at 0945, Until Sat01/15/24 at 1525 0912 (New Bag - Prov ider: Elisa Fritz CRNA)0945 (New Bag - Provider: Ana Tena RN)0945 (Continue from Pre-Op - Provider: Elisa Fritz CRNA) documented in this encounter Care Teams Hotel Controller Relationship Specialty Start Date End Date Promise Sandoval MD [address] [place] [address] [place] [phone] PCP - General Family Medicine 04/08/18 documented as of this encounter
--- OUTSIDE RECORDS SUMMARY | 2024-03-07 00:47 | External Medical Summary | Summary of Care ---
Author Name Unknown Organization [facility] Address [address] [place] [address] Phone [phone] Care Team Providers Care Student Life Coordinator Name Role Phone Promise Sandoval MD Primary Care Provide r Encounter Details Date Type Department Care Team (Latest Contact Info) Description 02/10/2024 Medication Management [facility] [address], [place] [id number] Eben Cuba CPhT Referred for management of medication therapy* Allergies Active Allergy Reactions Criticality Noted Date Comments Sherwin Inhibitors Cough 06/19/2011 Brovex Cb Other (Please comment) High 04/08/2010 confusion Codeine Other (Please comment) 04/03/2016 confusion documented as of this encounter (statuses as of 02/14/2024) Medications FREESTYLE LITE TEST STRPIndications:DM type 2, [...] 1 Tablet before bedtime. 200 Tablet 3 4 10:08 AM EDT 11/21/19 23 Active Victoza 18 MG/3ML Subcutaneous Solution Pen-injector (Liraglutide) inject 1.8 mg (0.3 mL) under the skin daily for 90 days 27 mL 3 4 9:22 AM EDT 01/16/20 23 Active Atorvastatin Calcium 80 MG Oral Tablet (Lipitor)Indicatio ns:Dyslipidemia, goal LDL below 70 TAKE ONE TABLET BY MOUTH EVERY MORNING 90 Tablet 3 4 3:01 PM EDT 03/18/19 24 025 Active Furosemide 40 MG Oral Tablet (Lasix)Indications :HTN, goal below 140/90 take 2 tablets by mouth one day alternating with three tablets the next day 235 Tablet 3 4 1:58 PM EDT 04/23/19 24 Active Isosorbide Mononitrate ER 60 MG Oral Tablet Extended Release 24 Hour (Imdur)Indications :Idiopathic cardiomyopathy (HCC),HTN, goal below 140/90 TAKE ONE TABLET BY MOUTH EVERY MORNING 90 Tablet 1 4 3:01 PM EDT 05/03/19 24 Active Magnesium 400 MG Oral Tablet Take 1 Tablet by mouth at bedtime. Active Ezetimibe 10 MG Oral Tablet (Zetia)Indications :Dyslipidemia, goal LDL below 100 TAKE 1 TABLET BY MOUTH DAILY 90 Tablet 3 4 5:35 PM EST 08/05/19 24 025 Active Famotidine 20 MG Oral Tablet (Pepcid)Indication s:Gastroesophageal reflux disease without esophagitis Take 1 Tablet by mouth daily. 90 Tablet 2 4 4:42 PM EDT 09/23/19 24 025 Active NovoLOG FlexPen 100 UNIT/ML Subcutaneous Solution Pen-injectorIndica tions:Type 2 diabetes mellitus with hemoglobin A1c goal of less than 7.0% ([facility]) INJECT 25 UNITS WITH MEALS DIRECTED 75 mL 3 4 6:55 AM EDT 09/25/19 24 Active Hair Skin Nails Oral Capsule Take 2 Capsules by mouth in the morning. Active Lantus SoloStar 100 UNIT/ML Subcutaneous Solution Pen-injectorIndica tions:Type 2 diabetes mellitus with stage 3b chronic kidney disease, with long-term current use of insulin (HCC) INJECT 50 UNITS UNDER THE SKIN TWO TIMES A DAY. 90 mL 3 4 2:12 PM EDT 02/06/20 23 024 Discontin ued(Refil l) Na Sulfate-K Sulfate-Mg Sulf 17.5-3.13-1.6 GM/177ML Oral [...] before the procedure. 177 mL 10/09/19 24 024 Discontin ued(Patie nt preferenc e/discont inuation) Na Sulfate-K Sulfate-Mg Sulf 17.5-3.13-1.6 GM/177ML Oral Solution (Suprep Bowel Prep Kit) Take 177 mL by mouth in the morning and 177 mL before bedtime. Do all this for 1 day. Follow prep instructions. 354 mL 10/21/19 24 024 Discontin ued(Patie nt preferenc e/discont inuation) Magnesium Oxide 400 MG Oral Tablet magnesium 400 mg (as magnesium oxide) tablet 024 Discontin ued(Medic ation List Clean Up) documented as of this encounter (statuses as of 02/14/2024) Active Problems Problem Noted Date Diagnosed Date Chronic diastolic congestive heart failure 05/26 Type 2 diabetes mellitus with peripheral vascula r disease 09/24/2022 Vitreous hemorrhage, bilateral 03/06/2022 Type 2 diabetes mellitus wit h proliferative diabetic retinopathy of both eyes without macular edema 08/22/2021 Atherosclerosis of kashia co ronary artery without angina pectoris 08/22/2021 [...] as of this encounter (statuses as of 02/14/2024) Resolved Problems Problem Noted Date Diagnosed Date [...] as of this encounter (statuses as of 02/14/2024) Immunizations Name Administration Dates Next Due COVID-19 mRNA, LNP-s, No Pre serve, 2-Dose Series (Multistat) 02/28/2021,02/07/2021 COVID-19, LNP-s, No Preserve , Ramirez-sucrose, Ages 12+ (Multistat) 08/22/2021 Pneumococcal Polysaccharide PPV23 (Pneumovax) 12/03/2009 Seasonal [...] in the Last Year Never true 02/11/2019 Comments No Sex and Gender Information Value Date Recorded Sex Assigned at Not on file Legal Sex Female 6:47 AM EST Gender Identity Not on file Sexual Orientation Not on file documented as of this encounter Progress Notes * Earnest Sims, [facility] - 02/10/2024 5:06 PM EST Gina Allison is a 63 year old female. Objective: Review of patient's allergies indicates: Allergen Reactions Brovex Cb Other (Please comment) confusion Sherwin Inhibitors Cough Codeine Other (Please comment) confusion Current Outpatient Medications - WARNING: List may be incomplete due to filtering Medication Sig Dispense Refill Hair Skin Nails Oral Capsule Take 2 Capsules by mouth in the morning. NovoLOG FlexPen 100 UNIT/ML Subcutaneous Solution Pen-injector INJECT 25 UNITS WITH MEALS DIRECTED 75 mL 3 Famotidine 20 MG Oral Tablet (Pepcid) Take 1 Tablet by mouth daily. 90 Tablet 2 Ezetimibe 10 MG Oral Tablet (Zetia) TAKE 1 TABLET BY MOUTH DAILY 90 Tablet 3 Magnesium 400 MG Oral Tablet Take 1 Tablet by mouth at bedtime. Isosorbide Mononitrate ER 60 MG Oral Tablet Extended Release 24 Hour (Imdur) TAKE ONE TABLET BY MOUTH EVERY MORNING 90 Tablet 1 Furosemide 40 MG Oral Tablet (Lasix) take 2 tablets by mouth one day alternating with three tabletsthe next day 235 Tablet 3 Atorvastatin Calcium 80 MG Oral Tablet (Lipitor) TAKE ONE TABLET BY MOUTH EVERY MORNING 90 Tablet 3 Victoza 18 MG/3ML Subcutaneous Solution Pen-injector (Liraglutide) inject 1.8 mg (0.3 mL) under theskin daily for 90 days 27 mL 3 Metoprolol Succinate ER 50 MG Oral Tablet Extended Release 24 Hour (Toprol XL) Take 1 Tablet by mouth in the morning and 1 Tablet before bedtime. 200 Tablet 3 Docusate Sodium 100 MG Oral Capsule Take 2 Capsules by mouth every evening. B Complex Vitamins (VITAMIN B COMPLEX) Tablet Take 1 Tablet by mouth in the morning. Aspirin 81 MG Tablet Take 1 Tablet by mouth every evening. Lantus SoloStar 100 UNIT/ML Subcutaneous Solution Pen-injector INJECT 50 UNITS UNDER THE SKIN TWO TIMES A DAY. 90 mL 3 BD Pen Needle Kinza U/F 32G X 4 MM Use with insulin-6 times daily DxE11.9 540 Each 0 Insulin Syringe-Needle U-100 31G X 5/16" 1 ML USE TO INJECT 5 TIMES DAILY 450 Each 0 FREESTYLE LITE TEST STRP testing three times a day 300 Strip 0 Immunization History Administered Date(s) Administered COVID-19 mRNA, LNP-s, No Preserve, 2-Dose Series (Pfizer) 02/07/2021, 02/28/2021 COVID-19, LNP-s, No Preserve, Ramirez-sucrose, Ages 12+ (Pfizer) 08/22/2021 Pneumococcal Polysaccharide PPV23 (Pneumovax) 12/03/2009 Seasonal Influenza Vac., MDV, IM, 0.5 mL (Fluzone) 12/03/2009, 02/06/2011, 11/11/2013 Seasonal Influenza, Quadrivalent, No Preserve, IM 12/27/2015 TDAP, Age 7 and older, IM (Adacel) 02/06/2011 TMR Interventions Incomplete Encounter MTPs No medication therapy recommendations to display Complete Encounter MTPs No medication therapy recommendations to display Assessment & Plan Indication, effectiveness, safety and convenience of her medications were reviewed today. The patient's medical conditions were assessed, evaluated, and deemed meeting goals of drug therapy, with thefollowing exceptions. Additional Notes: Summary Time Spent: 1-15 min Supervising pharmacist who provided the service: Earnest Sims [facility] Takealfredito Information Who was the recipient of the CMR service: beneficiary Language Template for the Patient Takeaway: Swiss I attest that I have reviewed and updated the patient's conditions, allergies, and medications to the best of my ability. Patient provided medication list gathered by: Gerda Miller RPh 02/10/2024, 5:06 PM documented in this encounter Miscellaneous Notes * MTM Personal Medication List - Earnest Sims RPh - 02/14/2024 11:35 AM EST Medication How I take it Why I use it Prescriber Aspirin 81 MG Tablet Take 1 Tablet by mouth every evening. Heart Health Self Atorvastatin Calcium 80 MG Oral Tablet (Lipitor) TAKE ONE TABLET BY MOUTH EVERY MORNING CholesterolLiborio Ennis PA-C B Complex Vitamins (VITAMIN B COMPLEX) Tablet Take 1 Tablet by mouth in the morning. General HealthSelf Docusate Sodium 100 MG Oral Capsule Take 2 Capsules by mouth every evening. Constipation Self Ezetimibe 10 MG Oral Tablet (Zetia) TAKE 1 TABLET BY MOUTH DAILY Cholesterol Promise Sandoval MD Famotidine 20 MG Oral Tablet (Pepcid) Take 1 Tablet by mouth daily. Stomach Acid Promise Sandoval MD Furosemide 40 MG Oral Tablet (Lasix) take 2 tablets by mouth one day alternating with three tabletsthe next day Fluid Liborio Ennis PA-C Hair Skin Nails Oral Capsule Take 2 Capsules by mouth in the morning. General Health Self Isosorbide Mononitrate ER 60 MG Oral Tablet Extended Release 24 Hour (Imdur) TAKE ONE TABLET BY MOUTH EVERY MORNING Blood Pressure Promise Sandoval MD Magnesium 400 MG Oral Tablet Take 1 Tablet by mouth at bedtime. General Health Self Metoprolol Succinate ER 50 MG Oral Tablet Extended Release 24 Hour (Toprol XL) Take 1 Tablet by mouth in the morning and 1 Tablet before bedtime. Blood Pressure Liborio Ennis PA-C NovoLOG FlexPen 100 UNIT/ML Subcutaneous Solution Pen-injector INJECT 25 UNITS UNDER THE SKIN WITH MEALS DIRECTED Diabetes Promise Sandoval MD Victoza 18 MG/3ML Subcutaneous Solution Pen-injector (Liraglutide) inject 1.8 mg (0.3 mL) under theskin daily for 90 days Diabetes Promise Sandoval MD * [facility] [place] To-Do-List - LeviEarnest RPh - 02/14/2024 10:59 AM EST Images from the original note were not included. What we talked about: What I should do: The importance of taking your medication as prescribed Your medicine works best when taken as prescribed. It can be hard to remember to take daily medications. Consider making it a part of your daily routine. Pair taking your medication with something you do every day, like brushing your teeth or eating a meal. Consider setting daily alarms to help remind yourself when it is time to take your medicine. Using a pill box can also help you organize your medicines. Pill boxes allow you to fill each day slot with your daily medicine and help you track when your next dose is due. What we talked about: What I should do: Diabetes Care PLEASE MONITOR FOR SIGNS AND SYMPTOMS OF HYPOGLYCEMIA AND HYPERGLYCEMIA. SYMPTOMS OF HYPOGLYCEMIA OR TOO LOW BLOOD SUGAR CAN INCLUDE WEAKNESS, SWEATING, AND HEART PALPITATIONS.MAKE SUREYOU HAVE A PLAN IN PLACE TO REVERSE LOW BLOOD SUGAR, WHICH MAY INCLUDE KEEPING GLUCOSE TABLETS OR LIQUID ON HAND. YOU CAN ALSO KEEP A SUGARY DRINK AVAILABLE, SUCH ORANGE JUICE, IN CASE OF AN EMERGENCY. IF BLOOD SUGAR CAN NOT BE RAISED TO ACCEPTABLE LEVELS, CONTACT EMERGENCY SERVICES IMMEDIATELY.SYMPTOMS OF HYPERGLYCEMIA OR TOO HIGH BLOOD SUGAR CAN INCLUDE INCREASE IN URINATION, LETHARGY OR TIREDNESS AND INCREASES IN THIRST. PLEASE CONTACT YOUR DOCTOR WITH ANY ISSUES THAT FALL OUTSIDE OF YOUR PRESCRIBED DIABETIC PLAN AND OUTCOMES. IT IS RECOMMENDED FOR PATIENTS WITH DIABETES TO HAVE AN ANNUAL EYE AND FOOT EXAM TO HELP MONITOR FOR COMPLICATIONS ASSOCIATED WITH DIABETES IN THESE AREAS. THEFOOT AND EYES ARE PRONE TO DIABETES COMPLICATIONS WHICH CAN INCLUDE BLINDNESS AND DECREASE CIRCULATION IN LOWER EXTREMITIES WHICH CAN LEAD TO NEGATIVE OUTCOMES SUCH AMPUTATION. What we talked about: What I should do: PER OUR CONVERSATION AND THE CURRENT CDC RECOMMENDATIONS AND GUIDELINES YOU MAY NEED THE FOLLOWING VACCINATIONS: SHINGLES(Shingrix): 2 DOSE SERIES per lifetime spaced 2-4 months apart TETANUS: TDAP(Boostrix) given every 10 years FLU: 2023-25 DOSE(Starting Fall 2023) COVID: Primary series or Booster Dose RSV: 1 DOSE per Lifetime age greater than 60 years for certain populations THESE VACCINES CAN BE OBTAINED AT YOUR LOCAL PHARMACY FOR ZERO COPAY. What we talked about: What I should do: [facility] You can get a 90 day supply of your prescription medications delivered to your home. You also can be signed up for automatic refills. Typically, patients who switch to mail order save money on their monthly prescriptions. You will have access to a pharmacist to answer any questions about your medications (Saturday- Saturday, 6:30 am to 7 pm). Call [phone] to enroll in mail order services today. documented in this encounter Plan of Treatment Upcoming Encounters Date Type Department Care Team (Late st Contact Info) Description 03/20/2024 8:40 AM EST Office Visit Family Medicine [address] [place] [phone] Promise Sandoval MD [address] [place] [address] [place] [address] 03/26/2024 8:30 AM EST Office Visit Cardiology [address] [place] [phone] Liborio Ennis PA-C [address] [place] [address] 05/04/2024 9:00 AM EST Imaging Radiology [address] [place] [address] 08/26/2024 9:00 AM EDT Office Visit Nephrology, Dilan Wen [address] [facility] [place] [address] Maryjo Esparza PA-C [address] [place] [address] 09/15/2024 8:00 AM EDT Office Visit Cardiology, [facility] [address] [place] [address] Sonya Olivera CRNP [address] [place] [address] 11/27/2024 9:00 AM EDT Imaging Radiology [address] [place] [address] Health Maintenance Due Date Last Done Comments [...] Additional history exists CKD HGB USE SMARTSET 92678 05/27/202405/27, 05/17/2023, 05/17/2023, Additional history exists GFR 06/29/2024 12/30/2023, 05/02, 08/03/2022, Additional history exists Cervical Cancer Screening 07/10/2024 Pap Smear 07/10/2024 07/10/2021, 10/02, 10/09/2017, Additional history exists Mammogram 11/21/2024 11/22/2023, 11/03, 11/16/2022, Additional history exists Albumin/Creatinine Ratio 12/29/2024 024, 09/28/2022, 08/03/2022, Additional history exists CKD PHOS USE SMARTSET 85598 12/29/202412/03, 05/17/2023, 08/03/2022, Additional history exists Diabetic Eye Exam 01/06/2025 01/07/2024, , 01/01/2024, Additional history exists Colonoscopy 01/14/2034 01/15/2024, 10/02, [...] Not on filedocumented as of this encounter Visit Diagnoses Diagnosis Referred for management of medication therapy- Primary Encounter for long-term (current) use of other medications Screening mammogram for breast cancer documented in this encounter Care Teams Student Life Coordinator Relationship Specialty Start Date End Date Promise Sandoval MD [address] [place] [address] [place] [address] PCP - General Family Medicine 04/08/18 documented as of this encounter
--- OUTSIDE RECORDS SUMMARY | 2024-03-07 00:47 | External Medical Summary | Summary of Care ---
Author Name Unknown Organization [facility] Address [address] [facility] [address] Phone [phone] Care Team Providers Care Leak Detection Engineer Name Role Phone Promise Sandoval MD Primary Care Provide r Reason for Visit * Reason Onset Date Comments Appointment 02/21/2024 Encounter Details Date Type Department Care Team (Late st Contact Info) Description 02/21/2024 Telephone ENDO GE, Endoscopy [facility] [address] [place] [address] Kell Santos MD [address] [place] [address] Appointment Allergies Active Allergy Reactions Criticality Noted Date Comments Sherwin Inhibitors Cough 06/19/2011 Brovex Cb Other (Please comment) High 04/08/2010 confusion Codeine Other (Please comment) 04/03/2016 confusion documented as of this encounter (statuses as of 02/21/2024) Medications FREESTYLE LITE TEST STRPIndications:DM type 2, [...] 4 10:08 AM EDT 11/21/19 23 Active Atorvastatin Calcium 80 MG Oral [...] hemoglobin A1c goal of less than 7.0% ([facility]) INJECT 25 UNITS WITH MEALS [...] TIMES A DAY. 90 mL 3 4 6:41 AM EST 02/12/20 24 025 Active Liraglutide 18 MG/3ML Subcutaneous Solution Pen-injector (Victoza) 1.8 mg (0.3 mL) subcutaneously daily for 90 days 27 mL 3 02/18/20 24 Active documented as of this encounter (statuses as of 02/21/2024) Active Problems Problem Noted Date Diagnosed Date Chronic diastolic congestive heart failure 05/26 Type 2 diabetes mellitus with peripheral vascula r disease 09/24/2022 Vitreous hemorrhage, bilateral 03/06/2022 Type 2 diabetes mellitus wit h proliferative diabetic retinopathy of both eyes without macular edema 08/22/2021 Atherosclerosis of [place] ronary artery without angina pectoris 08/22/2021 [...] as of this encounter (statuses as of 02/21/2024) Resolved Problems Problem Noted Date Diagnosed Date [...] as of this encounter (statuses as of 02/21/2024) Immunizations Name Administration Dates Next Due COVID-19 [...] on file documented as of this encounter Miscellaneous Notes * Telephone Encounter - Cindy Perez OSA - 02/21/2024 12:33 PM EST Per biopsy letter from 02/21/24, pt to have repeat colonoscopy 1 year. Please call when schedules or 01/2025 are available. documented in this encounter Plan of Treatment Upcoming Encounters Date Type Department Care Team (Late st Contact Info) Description 03/20/2024 8:40 AM EST Office Visit Family Medicine [address] [place] [phone] Promise Sandoval MD [address] [place] [address] [place] [address] 03/26/2024 8:30 AM EST Office Visit Cardiology [address] [place] [address] Liborio Ennis PA-C [address] [place] [address] 05/04/2024 9:00 AM EST Imaging Radiology [address] [place] [address] 08/26/2024 9:00 AM EDT Office Visit Nephrology, [facility] [address] [facility] [place] [address] ZeMaryjo joel PA-C [address] [facility] [place] [address] 09/15/2024 8:00 AM EDT Office Visit Cardiology, [facility] 132 [facility] [place] [address] Sonya Olivera CRNP [address] [place] [address] 11/27/2024 9:00 AM EDT Imaging Radiology [address] [place] [address] Scheduled Procedures Name Priority Associated Diagnoses Date/Ti me COLONOSCOPY FLEXIBLE PROXIMAL DIAGNOSTIC Recall Colon polyp Health Maintenance Due Date Last Done Comments [...] Additional history exists CKD HGB USE SMARTSET 48266 05/27/202405/27, 05/17/2023, 05/17/2023, Additional history exists GFR 06/29/2024 12/30/2023, 05/02, 08/03/2022, Additional history exists Cervical Cancer Screening 07/10/2024 Pap Smear 07/10/2024 07/10/2021, 10/02, 10/09/2017, Additional history exists Mammogram 11/21/2024 11/22/2023, 11/03, 11/16/2022, Additional history exists Albumin/Creatinine Ratio 12/29/2024 024, 09/28/2022, 08/03/2022, Additional history exists CKD PHOS USE SMARTSET 66801 12/29/202412/03, 05/17/2023, 08/03/2022, Additional history exists Diabetic Eye Exam 01/06/2025 01/07/2024, , 01/01/2024, Additional history exists Colonoscopy 01/14/2025 01/15/2024, 10/02, 10/16/2023, Additional history exists Colorectal Cancer Screening 01/14/2025 HPV (Gardasil) Vaccine Aged Out No lo nger eligible based on patient's age to complete this topic Hepatitis B Vaccine Aged Out No longe r eligible based on patient's age to complete this topic MENINGOCOCCAL (MENACTRA/MENVEO) Aged Out No longer eligible based on patient's age to complete this topic documented as of this encounter Medical Devices Not on filedocumented as of this encounter Care Teams Leak Detection Engineer Relationship Specialty Start Date End Date Promise Sandoval MD [address] [place] [address] [place] [address] PCP - General Family Medicine 04/08/18 documented as of this encounter
--- OUTSIDE RECORDS SUMMARY | 2024-03-07 00:47 | External Medical Summary ---
Author Name Unknown Address Unknown Organization : Laboratory Report Ordering Provider Test Date Status SOLOMON CHUA 01/15/2024 08:59:38 Final Observation Date Value Abnormality Reference (Units ) Status Glucose Point of Care 01/15/2024 08:59:38 146 Above high normal 70-120 (mg/dL) Final Performing Location
--- OUTSIDE RECORDS SUMMARY | 2024-03-07 00:47 | External Medical Summary | Summary of Care ---
Author Name Unknown Organization [facility] Address [address] [place] [address] Phone [phone] Care Team Providers Care Zigzag Tunnel Elastic Operator Name Role Phone Rfaiq Sandoval MD Primary Care Provide r Reason for Visit * Reason Comments Medication Refill Encounter Details Date Type Department Care Team (Late st Contact Info) Description 02/11/2024 Refill Family Medicine [address] [phone] Rafiq Sandoval MD [address] [place], [place] [address] [address] Type 2 diabetes mellitus with stage 3b chronic kidney disease, with long-term current use of insulin ([facility]) Allergies Active Allergy Reactions Criticality Noted Date Comments Sherwin Inhibitors Cough 06/19/2011 Brovex Cb Other (Please comment) High 04/08/2010 confusion Codeine Other (Please comment) 04/03/2016 confusion documented as of this encounter (statuses as of 02/12/2024) Medications FREESTYLE LITE TEST STRPIndications:DM type 2, [...] hemoglobin A1c goal of less than 7.0% (HCC) INJECT 25 UNITS WITH MEALS DIRECTED 75 [...] the procedure. 177 mL 10/09/19 24 Active Additional Information Patient not taking.Reported on 02/10/2024 Lantus SoloStar 100 UNIT/ML Subcutaneous Solution Pen-injectorIndica tions:Type 2 diabetes mellitus with stage 3b chronic kidney disease, with long-term current use of insulin ([facility]) INJECT 50 UNITS UNDER THE SKIN TWO TIMES A DAY. 90 mL 3 02/12/20 24 025 Active Lantus SoloStar 100 UNIT/ML Subcutaneous Solution Pen-injectorIndica tions:Type 2 diabetes mellitus with stage 3b chronic kidney disease, with long-term current use of insulin ([facility]) INJECT 50 UNITS UNDER THE SKIN TWO TIMES A DAY. 90 mL 3 4 2:12 PM EDT 02/06/20 23 024 Discontin ued(Refil l) documented as of this encounter (statuses as of 02/12/2024) Active Problems Problem Noted Date Diagnosed Date Chronic diastolic congestive heart failure 05/26 Type 2 diabetes mellitus with peripheral vascula r disease 09/24/2022 Vitreous hemorrhage, bilateral 03/06/2022 Type 2 diabetes mellitus wit h proliferative diabetic retinopathy of both eyes without macular edema 08/22/2021 Atherosclerosis of [place] ronary artery without angina pectoris 08/22/2021 [...] as of this encounter (statuses as of 02/12/2024) Resolved Problems Problem Noted Date Diagnosed Date [...] as of this encounter (statuses as of 02/12/2024) Immunizations Name Administration Dates Next Due COVID-19 mRNA, LNP-s, No Pre serve, 2-Dose Series ([employer]) 02/28/2021,02/07/2021 COVID-19, LNP-s, No Preserve , Ramirez-sucrose, Ages 12+ ([employer]) 08/22/2021 Pneumococcal Polysaccharide PPV23 (Pneumovax) 12/03/2009 Seasonal [...] encounter Miscellaneous Notes * Telephone Encounter - Omari Donahue RPh - 02/12/2024 2:05 PM EST Signed Prescriptions: Disp Refills Lantus SoloStar 100 UNIT/ML Subcutaneous S*90 mL 3 Sig: INJECT 50 UNITS UNDER THE SKIN TWO TIMES A DAY.Authorizing Provider: RAFIQ SANDOVALOrdering User: OMARI DONAHUE * Telephone Encounter - Omari Donahue RPh - 02/12/2024 2:04 PM EST Signed Prescriptions: Disp Refills Lantus SoloStar 100 UNIT/ML Subcutaneous S*90 mL 3 Sig: INJECT 50 UNITS UNDER THE SKIN TWO TIMES A DAY. Authorizing Provider: RAFIQ SANDOVAL Ordering User: OMARI DONAHUE * Telephone Encounter - Tiana[facility]ily [facility] - 02/11/2024 12:00 PM EST Did you pend patient's preferred pharmacy and medication before forwarding?yes Pharmacy: [facility] Pending Prescriptions: Disp Refills Lantus SoloStar 100 UNIT/ML Subcutaneous *90 mL 3 Sig: INJECT 50 UNITS UNDER THE SKIN TWO TIMES A DAY. Last Visit: 05/27/2023 (in office), Visit date not found (telemedicine) Next Visit: 03/20/2024 If no future appointments scheduled, and last appointment is greater than a year ago, please schedule patient for a follow-up appointment Last date the medication was ordered: 02/05/23 Is this request for a controlled substance?No Urine Drug Screen:No results found for this or any previous visit. Patient Phone Numbers Labs: Lab Results Component Value Date/Time CREAT 1.4 (H) 12/30/2023 12:00 PM CREAT 1.53 (A) 05/07/2022 12:00 AM CREAT 1.6 (H) 02/16/2020 08:12 AM POTASSIUM 4.9 12/30/2023 12:00 PM POTASSIUM 4.5 05/07/2022 12:00 AM POTASSIUM 4.5 02/16/2020 08:12 AM TSH 1.86 05/28/2023 09:54 AM TSH 0.745 05/07/2022 12:00 AM TSH 1.65 04/08/2018 01:49 PM LDL 52 05/17/2023 02:31 PM LDL 38 05/07/2022 12:00 AM LDL 57 12/18/2019 11:10 AM LDL NOT APPLICABLE 12/18/2019 11:10 AM LDLCALC 26.80 05/07/2022 12:00 AM ALT 16 05/17/2023 02:31 PM ALT 20 06/15/2019 12:31 PM HGBA1C 8.7 (H) 11/26/2023 11:28 AM HGBA1C 7.2 (A) 05/07/2022 12:00 AM HGBA1C 8.4 (H) 11/03/2019 02:40 PM documented in this encounter Plan of Treatment Upcoming Encounters Date Type Department Care Team (Late st Contact Info) Description 03/20/2024 8:40 AM EST Office Visit Family Medicine [address] [place] [phone] Rafiq Sandoval MD [address] [place] [address] [place] [address] 03/26/2024 8:30 AM EST Office Visit Cardiology [address] [place] [address] Liborio Ennis PAShelliC 132 [facility] [place] [address] 05/04/2024 9:00 AM EST Imaging Radiology [address] [place] [address] 08/26/2024 9:00 AM EDT Office Visit Nephrology, [facility] 200 [facility] [place] [address] ZemaitisMaryjo PA-C 200 [facility] [place] [address] 09/15/2024 8:00 AM EDT Office Visit Cardiology, [facility] 132 [facility] [place] [address] Sonya Olivera CRNP [address] [place] [address] 11/27/2024 9:00 AM EDT Imaging Radiology [address] [place] [address] Health Maintenance Due Date Last Done Comments [...] Additional history exists CKD HGB USE SMARTSET 86208 05/27/202405/27, 05/17/2023, 05/17/2023, Additional history exists GFR 06/29/2024 12/30/2023, 05/02, 08/03/2022, Additional history exists Cervical Cancer Screening 07/10/2024 Pap Smear 07/10/2024 07/10/2021, 10/02, 10/09/2017, Additional history exists Mammogram 11/21/2024 11/22/2023, 11/03, 11/16/2022, Additional history exists Albumin/Creatinine Ratio 12/29/2024 024, 09/28/2022, 08/03/2022, Additional history exists CKD PHOS USE SMARTSET 42587 12/29/202412/034, 05/17/2023, 08/03/2022, Additional history exists Diabetic Eye [...] as of this encounter Visit Diagnoses Diagnosis Type 2 diabetes mellitus with stage 3b chronic kidney disease, with long-term current use of insulin (HCC) Screening mammogram for breast cancer documented in this encounter Care Teams Zigzag Tunnel Elastic Operator Relationship Specialty Start Date End Date Rafiq Sandoval MD [address] [place] [address] [place] [address] PCP - General Family Medicine 04/08/18 documented as of this encounter
--- OUTSIDE RECORDS SUMMARY | 2024-03-07 00:48 | External Medical Summary | Summary of Care ---
Author Name Unknown Organization [facility] Address [address] [facility] [place] [address] Phone [phone] Care Team Providers Care Electronic Installer Name Role Phone Promise Sandoval MD Primary Care Provide r Reason for Visit * Reason Comments Outpatient Testing Encounter Details Date Type Department Care Team (Late st Contact Info) Description 12/30/2023 12:00 PM EDT Laboratory Laboratory [address] [place] [phone] [place] [address] Hypertensive kidney disease with stage 3b chronic kidney disease (HCC) Allergies Active Allergy Reactions Criticality Noted Date Comments Sherwin Inhibitors Cough 06/19/2011 Brovex Cb Other (Please comment) High 04/08/2010 confusion Codeine Other (Please comment) 04/03/2016 confusion documented as of this encounter (statuses as of 12/30/2023) Medications Medication Sig Dispensed Refills Start Date End Date Status FREESTYLE LITE TEST STRPIndications:DM type 2, goal A1c below 7 testing three times a day 300 Strip 0 08/03/2013 Active Aspirin 81 MG Tablet Take 1 Tablet by mouth every evening. Active B Complex Vitamins (VITAMIN B COMPLEX) Tablet Take 1 Tablet by mouth in the morning. Active Docusate Sodium 100 MG Oral Capsule Take 2 Capsules by mouth every evening. Active BD Pen Needle Kinza U/F 32G X 4 MM Use with insulin-6 times daily DxE11.9 540 Each 01/04/2021 Active Insulin Syringe-Needle U-100 31G X 5/16" 1 ML USE TO INJECT 5 TIMES DAILY 450 Each 01/04/2021 Active Metoprolol Succinate ER 50 MG Oral Tablet Extended Release 24 Hour (Toprol XL) Take 1 Tablet by mouth in the morning and 1 Tablet before bedtime. 200 Tablet 3 11/20/2022 Active Victoza 18 MG/3ML Subcutaneous Solution Pen-injector (Liraglutide) inject 1.8 mg (0.3 mL) under the skin daily for 90 days 27 mL 3 01/15/2023 Active Lantus SoloStar 100 UNIT/ML Subcutaneous Solution Pen-injectorIndicati ons:Type 2 diabetes mellitus with stage 3b chronic kidney disease, with long-term current use of insulin (HCC) INJECT 50 UNITS UNDER THE SKIN TWO TIMES A DAY. 90 mL 3 02/05/2023 4 Active Additional Information Patient taking differently: 34 Units BID (.AM/PM), Reported on 10/08/2023 Atorvastatin Calcium 80 MG Oral Tablet (Lipitor)Indications :Dyslipidemia, goal LDL below 70 TAKE ONE TABLET BY MOUTH EVERY MORNING 90 Tablet 3 03/18/2023 5 Active Furosemide 40 MG Oral Tablet (Lasix)Indications:H TN, goal below 140/90 take 2 tablets by mouth one day alternating with three tablets the next day 235 Tablet 3 04/23/2023 Active Isosorbide Mononitrate ER 60 MG Oral Tablet Extended Release 24 Hour (Imdur)Indications:I diopathic cardiomyopathy (HCC),HTN, goal below 140/90 TAKE ONE TABLET BY MOUTH EVERY MORNING 90 Tablet 1 05/03/2023 Active Magnesium 400 MG Oral Tablet Take 1 Tablet by mouth at bedtime. Active Ezetimibe 10 MG Oral Tablet (Zetia)Indications:D yslipidemia, goal LDL below 100 TAKE 1 TABLET BY MOUTH DAILY 90 Tablet 3 08/05/2023 5 Active Additional Information Patient taking differently: 10 mg Oral QPM-1999, Reported on 10/09/2023 Famotidine 20 MG Oral Tablet (Pepcid)Indications: Gastroesophageal reflux disease without esophagitis Take 1 Tablet by mouth daily. 90 Tablet 2 09/23/2023 5 Active Additional Information Patient taking differently:20 mg OralDaily(AM), Reported on 10/09/2023 NovoLOG FlexPen 100 UNIT/ML Subcutaneous Solution Pen-injectorIndicati ons:Type 2 diabetes mellitus with hemoglobin A1c goal of less than 7.0% (HCC) INJECT 25 UNITS WITH MEALS DIRECTED 75 mL 3 09/25/2023 Active Hair Skin Nails Oral Capsule Take [...] 2 hours before the procedure. 177 mL 10/09/2023 Active Magnesium Oxide 400 MG Oral Tablet magnesium 400 mg (as magnesium oxide) tablet Active documented as of this encounter (statuses as of 12/30/2023) Active Problems Problem Noted Date Diagnosed Date Chronic diastolic congestive heart failure 05/26 Type 2 diabetes mellitus with peripheral vascula r disease 09/24/2022 Vitreous hemorrhage, bilateral 03/06/2022 Type 2 diabetes mellitus wit h proliferative diabetic retinopathy of both eyes without macular edema 08/22/2021 Atherosclerosis of [place] co ronary artery without angina pectoris 08/22/2021 [...] 71 06/22/2010 History of renal cell carcinoma Overview: renal cell carcinoma Idiopathic cardiomyopathy Solitary kidney, acquired documented as of this encounter (statuses as of 12/30/2023) Resolved Problems Problem Noted Date Diagnosed Date [...] limb amputation, great toe, left 07/15/2018 08/10/2021 Overview: Historical- please resolve/ update code to Z89.412- Acquired absence of Left Great Toe S/P amputation of lesser toe, left 07/15/2018 08/22/2021 Chronic osteomyelitis of lef t foot with draining sinus 07/15/2018 07/15/2018 Type 2 diabetes mellitus wit h stage 3 chronic kidney disease, with long-term current use of insulin 03/31/2018 07/14/2020 Overview: Per CKD protocol PAD (peripheral artery disease) 09/19/2017 02/06/2019 Overview: Covered in E11.42 dm2 w/PVD combo code CKD (chronic kidney disease) stage 3, GFR 30-59 ml/min 06/11/2017 12/17/2018 Overview: Per CKD protocol #1 Proliferative diabetic retin opathy without macular edema associated with type 2 diabetes mellitus 10/24/2015 09/19/2017 Overview: ICD-10 update of inactive term Thrombophlebitis of superfic ial veins of left lower extremity 07/26/2015 09/19/2017 Asthma, moderate persistent 11/11/2013 09/19/2017 DM type 2 causing renal disease 06/22/2010 09/21/2014 Severe obesity with body mas s index (BMI) of 35.0 to 39.9 with serious comorbidity 06/13/2010 Overview: ICD-10 update of inactive diagnosis Other and unspecified hyperlipidemia 02/06/2019 Overview: duplicate Moderate COPD (chronic obstr uctive pulmonary disease) 11/11/2013 documented as of this encounter (statuses as of 12/30/2023) Immunizations Name Administration Dates Next Due COVID-19 [...] years and over) Not on file 08/20/2023 Sex and Gender Information Value Date Recorded Sex Assigned at Not on file Gender Identity Not on file Sexual Orientation Not on file Job Start Date Occupation Industry Not on file Not on file Not on file documented as of this encounter Plan of Treatment Upcoming Encounters Date Type Department Care Team (Latest Contact Info) Description 01/09/2024 1:00 PM EST Office Visit Nephrology, [facility] [address] [place] [address] ZeMaryjo joel PA-C [address] [place] [address] 01/15/2024 9:36 AM EST Hospital Encounter OR [facility], Operating Room, [facility] - 4th Floor [address] [place] [phone] Kell Santos MD [address] [place] [address] 01/15/2024 9:36 AM EST - 01/15/2024 11:12 AM EST Surgery OR [facility], Operating Room, [facility] - 4th Floor [address] [place] [phone] Kell Santos MD [address] [place] [address] COLONOSCOPY, FLEXIBLE; WITH ENDOSCOPIC MUCOSAL RESECTION 03/20/2024 8:40 AM EST Office Visit Family Medicine [address] [place] [phone] Promise Sandoval MD [address] [place] [address] [place] [address] 03/26/2024 8:30 AM EST Office Visit Cardiology [address] [place] [address] Liborio Ennis PA-C [address] [place] [address] 09/15/2024 8:00 AM EDT Office Visit Cardiology, [facility] [address] [facility] [place] [address] Sonya Olivera CRNP [address] [place], [place] [address] [address] 11/27/2024 9:00 AM EDT Imaging Radiology [address] [place] [address] Pending Results Name Type Priority Associated Diagnoses Date /Time ALBUMIN / CREATININE RATIO, URINE Lab STAT Hypertensive kidney disease with stage 3b chronic kidney disease (HCC) 12/30/2023 12:00 PM EDT RENAL FUNCTION PANEL Lab STAT Hypertensive kidney disease with stage 3b chronic kidney disease (HCC) 12/30/2023 12:00 PM EDT Scheduled Procedures Name Priority Associated Diagnoses Date/Ti me COLONOSCOPY, FLEXIBLE; WITH ENDOSCOPIC MUCOSAL RESECTION Recall Colon polyp 01/15/2024 9:36 AM EST Health Maintenance Due Date Last [...] 07/29/2020, 1 04/14/2018, 12/24/2017, Additional history exists Albumin/Creatinine Ratio 09/29/2023 023, 08/03/2022, 01/17/2021, Additional history exists COVID-19 Vaccine ( season) 2023 08/22/2021, 02/28/2021, 02/07/2021 Influenza Vaccine (FLU shot) (#1) 2023 12/27/2015, 11/11/2013, 02/06/2011, Additional history exists GFR 11/17/2023 05/17/2023, 04/2022, 05/07/2022, Additional history exists CKD PHOS USE SMARTSET 45982 05/16/202405/02, 08/03/2022, 08/07/2021, Additional history exists HbA1c 05/25/2024 11/26/2023, 05/02, 09/28/2022, Additional history exists CKD HGB USE SMARTSET 93288 05/27/202405/27, 05/17/2023, 05/17/2023, Additional history exists Cervical Cancer Screening 07/10/2024 Pap Smear 07/10/2024 07/10/2021, 10/02, 10/09/2017, Additional history exists Diabetic Eye Exam 11/17/2024 11/18/2023, , 11/18/2023, Additional history exists Mammogram 11/21/2024 11/22/2023, 11/03, 11/16/2022, Additional history exists Colonoscopy 10/15/2033 10/16/2023, 10/02, 04/29/2013, Additional history exists Colorectal Cancer Screening 10/15/2033 HPV (Gardasil) Vaccine Aged Out No lo [...] as of this encounter Visit Diagnoses Diagnosis Hypertensive kidney disease with stage 3b chronic kidney disease (HCC) Colon polyp Benign neoplasm of colon Screening mammogram for breast cancer documented in this encounter Care Teams Electronic Installer Relationship Specialty Start Date End Date Promise Sandoval MD [address] [place] [address] [place] [address] PCP - General Family Medicine 04/08/18 documented as of this encounter
--- OUTSIDE RECORDS SUMMARY | 2024-03-07 00:48 | External Medical Summary | Summary of Care ---
Author Name Unknown Organization [facility] Address [address] [place] [address] Phone [phone] Care Team Providers Care Egg And Spice Mixer Name Role Phone Promise Sandoval MD Primary Care Provide r Encounter Details Date Type Department Care Team (Late st Contact Info) Description 01/09/2024 Population Health External Data Unspecified Department Allergies Active Allergy Reactions Criticality Noted Date Comments Sherwin Inhibitors Cough 06/19/2011 Brovex Cb Other (Please comment) High 04/08/2010 confusion Codeine Other (Please comment) 04/03/2016 confusion documented as of this encounter (statuses as of 01/10/2024) Medications FREESTYLE LITE TEST STRPIndications:DM type 2, [...] 10/08/2023 Atorvastatin Calcium 80 MG Oral Tablet (Lipitor)Indicatio [...] on 10/09/2023 Famotidine 20 MG Oral Tablet (Pepcid)Indication s:Gastroesophageal reflux disease without esophagitis Take 1 Tablet by mouth daily. 90 Tablet 2 12/17/2023 4:42 PM EDT 09/23/19 24 025 Active Additional Information Patient taking differently:20 mg OralDaily(AM), Reported on 10/09/2023 NovoLOG FlexPen 100 UNIT/ML Subcutaneous Solution Pen-injectorIndica tions:Type 2 diabetes mellitus with hemoglobin A1c goal of less than 7.0% ([facility]) INJECT 25 UNITS WITH MEALS DIRECTED [...] as of this encounter (statuses as of 01/10/2024) Active Problems Problem Noted Date Diagnosed Date Chronic diastolic congestive heart failure 05/26 Type 2 diabetes mellitus with peripheral vascula r disease 09/24/2022 Vitreous hemorrhage, bilateral 03/06/2022 Type 2 diabetes mellitus wit h proliferative diabetic retinopathy of both eyes without macular edema 08/22/2021 Atherosclerosis of [place] ronary artery without angina pectoris 08/22/2021 [...] as of this encounter (statuses as of 01/10/2024) Resolved Problems Problem Noted Date Diagnosed Date [...] as of this encounter (statuses as of 01/10/2024) Immunizations Name Administration Dates Next Due COVID-19 [...] Care Team (Latest Contact Info) Description 01/15/2024 9:36 AM EST Hospital Encounter OR [facility], Operating Room, [facility] - 4th Floor [address] [place] [phone] Kell Santos MD [address] [place] [address] 01/15/2024 9:36 AM EST - 01/15/2024 11:12 AM EST Surgery OR [facility], Operating Room, [facility] - 4th Floor [address] [place] [phone] Kell Santos MD [address] [place] [id number] COLONOSCOPY, FLEXIBLE; WITH ENDOSCOPIC MUCOSAL RESECTION 03/20/2024 8:40 AM EST Office Visit Family Medicine [address] [place] [phone] Promise Sandoval MD [address] [place] [address] [place] [address] 03/26/2024 8:30 AM EST Office Visit Cardiology [address] [place] [address] Liborio Ennis PA-C [address] [place] [address] 08/26/2024 9:00 AM EDT Office Visit Nephrology, [facility] [address] [place] [phone] ZemaMaryjo adams PA-C [address] [place] [address] 09/15/2024 8:00 AM EDT Office Visit Cardiology, [facility] [address] [place] [address] Sonya Olivera CRNP [address] [facility] [place] [address] 11/27/2024 9:00 AM EDT Imaging Radiology [address] [place] [address] Scheduled Procedures Name Priority Associated Diagnoses Date/Ti [...] Additional history exists CKD HGB USE SMARTSET 95152 05/27/202405/27, 05/17/2023, 05/17/2023, Additional history exists GFR 06/29/2024 12/30/2023, 05/02, 08/03/2022, Additional history exists Cervical Cancer Screening 07/10/2024 Pap Smear 07/10/2024 07/10/2021, 10/02, 10/09/2017, Additional history exists Diabetic Eye Exam 11/17/2024 11/18/2023, , 11/18/2023, Additional history exists Mammogram 11/21/2024 11/22/2023, 11/03, 11/16/2022, Additional history exists Albumin/Creatinine Ratio 12/29/2024 024, 09/28/2022, 08/03/2022, Additional history exists CKD PHOS USE SMARTSET 65229 12/29/202412/03, 05/17/2023, 08/03/2022, Additional history exists Colonoscopy 10/15/2033 10/16/2023, 10/02, [...] filedocumented as of this encounter Care Teams [employer] Spice Mixer Relationship Specialty Start Date End Date Promise Sandoval MD [address] [place] [address] [place] [phone] PCP - General Family Medicine 04/08/18 documented as of this encounter
--- OUTSIDE RECORDS SUMMARY | 2024-03-07 00:48 | External Medical Summary | Summary of Care ---
Author Name Unknown Organization [facility] Address [address] [facility] [place] [address] Phone [phone] Care Team Providers Care Pocket And Pulley Machine Operator Name Role Phone Promise Sandoval MD Primary Care Provide r Reason for Visit * Reason Comments Chronic Kidney Disease (CKD) Encounter Details Date Type Department Care Team (Late st Contact Info) Description 01/09/2024 1:00 PM EST Office Visit Nephrology, [address] [place] [address] ZeMaryjo joel PA-C [address] [facility] [place] [address] Stage 3b chronic kidney disease (HCC)*; Solitary kidney, acquired; HTN, goal below 140/90; Left renal stone Allergies Active Allergy Reactions Criticality Noted Date Comments Sherwin Inhibitors Cough 06/19/2011 Brovex Cb Other (Please comment) High 04/08/2010 confusion Codeine Other (Please comment) 04/03/2016 confusion documented as of this encounter (statuses as of 01/09/2024) Medications Medication Sig Dispensed Refills Start Date End Date Status CLAYSTYLE LITE TEST STRPIndications:DM type 2, goal A1c [...] as of this encounter (statuses as of 01/09/2024) Active Problems Problem Noted Date Diagnosed Date Chronic diastolic congestive heart failure 05/26 Type 2 diabetes mellitus with peripheral vascula r disease 09/24/2022 Vitreous hemorrhage, bilateral 03/06/2022 Type 2 diabetes mellitus wit h proliferative diabetic retinopathy of both eyes without macular edema 08/22/2021 Atherosclerosis of [place] co ronary artery without angina pectoris 08/22/2021 [...] as of this encounter (statuses as of 01/09/2024) Resolved Problems Problem Noted Date Diagnosed Date [...] as of this encounter (statuses as of 01/09/2024) Immunizations Name Administration Dates Next Due COVID-19 mRNA, LNP-s, No Pre serve, 2-Dose Series (Entelo) 02/28/2021,02/07/2021 COVID-19, LNP-s, No Preserve , Ramirez-sucrose, [...] Sign Reading Time Taken Comments Blood Pressure 129/78 01/09/2024 1:01 PM EST Pulse 77 01/09/2024 1:01 PM EST Temperature 36.1 C (97 F) 01/09/2024 1:01 PM EST Respiratory Rate 18 01/09/2024 1:01 PM EST Oxygen Saturation 92% 01/09/2024 1:01 PM EST Inhaled Oxygen Concentration - - Weight 108.9 kg (240 lb) 01/09/2024 1:01 PM EST Height - - Body Mass Index 36.49 10/09/2023 9:06 AM EDT documented in this encounter Progress Notes * Maryjo Esparza PA-C - 01/09/2024 12:59 PM EST Images from the original note were not included. No chief complaint on file. SUBJECTIVE: HPI:Patient is a 63 year old female with CKD stage G3-A1 without proteinurea in the setting of solitary kidney, longstanding and uncontrolled diabetes, hypertension here for follow up. PMH (from last Nephrology note): Includes solitary kidney, DM since 1995 on insulin and metformin, obesity, HTN, past viral induced [employer] EF 20% but then improved to 50%, 2010 w/ nonobstructive CAD at the time, PAD. Has solitary kidney s/p R nephrectomy 2001 for RCC. Admitted 09/2017 [facility] w/ sepsis, gangrenous toe s/p amputation. Losartan stopped d/t elevated K, worsening renal function. Has retinopathy per report. HerB and F both have/ had CKD; no ESRD. Denies stone hx. 03/2016 also hospitalized for toe amputation. All toes amputated on the left foot and right foot the little toe. Chronic issues w/ balance, worse after amputations. Retired being a manager training and development at [employer] Since last visit 12/30/2023----Denies any recent hospitalizations, procedures or infections. Reports colonoscopy completed in over the summer and is due to have a repeat colonoscopy in 1 wk Concerned with shape of polyp noted in during initial screening and has to fu in [place] for removal. Still with Victien no issues with. Admits to not taking today due to upcoming colonoscopy Less than 2L drinking primarly water NSAID: No Renal Stone: yes but noted on imaging only Herbal Medication: Vit B, Hair skin and nails, HISTORY: Current Outpatient Medications Medication Sig Dispense Refill FREESTYLE LITE TEST STRP testing three times a day 300 Strip 0 Aspirin 81 MG Tablet Take 1 Tablet by mouth every evening. B Complex Vitamins (VITAMIN B COMPLEX) Tablet Take 1 Tablet by mouth in the morning. Docusate Sodium 100 MG Oral Capsule Take 2 Capsules by mouth every evening. BD Pen Needle Kinza U/F 32G X 4 MM Use with insulin-6 times daily DxE11.9 540 Each 0 Insulin Syringe-Needle U-100 31G X 5/16" 1 ML USE TO INJECT 5 TIMES DAILY 450 Each 0 Metoprolol Succinate ER 50 MG Oral Tablet Extended Release 24 Hour (Toprol XL) Take 1 Tablet by mouth in the morning and 1 Tablet before bedtime. 200 Tablet 3 Victoza 18 MG/3ML Subcutaneous Solution Pen-injector (Liraglutide) inject 1.8 mg (0.3 mL) under theskin daily for 90 days 27 mL 3 Lantus SoloStar 100 UNIT/ML Subcutaneous Solution Pen-injector INJECT 50 UNITS UNDER THE SKIN TWO TIMES A DAY. (Patient taking differently: 34 Units in the morning and 34 Units before bedtime.) 90 mL3 Atorvastatin Calcium 80 MG Oral Tablet (Lipitor) TAKE ONE TABLET BY MOUTH EVERY MORNING 90 Tablet 3 Furosemide 40 MG Oral Tablet (Lasix) take 2 tablets by mouth one day alternating with three tabletsthe next day 235 Tablet 3 Isosorbide Mononitrate ER 60 MG Oral Tablet Extended Release 24 Hour (Imdur) TAKE ONE TABLET BY MOUTH EVERY MORNING 90 Tablet 1 Magnesium 400 MG Oral Tablet Take 1 Tablet by mouth at bedtime. Ezetimibe 10 MG Oral Tablet (Zetia) TAKE 1 TABLET BY MOUTH DAILY (Patient taking differently: Take 1 Tablet by mouth every evening.) 90 Tablet 3 Famotidine 20 MG Oral Tablet (Pepcid) Take 1 Tablet by mouth daily. (Patient taking differently: Take 1 Tablet by mouth in the morning.) 90 Tablet 2 NovoLOG FlexPen 100 UNIT/ML Subcutaneous Solution Pen-injector INJECT 25 UNITS WITH MEALS DIRECTED 75 mL 3 Hair Skin Nails Oral Capsule Take 2 Capsules by mouth in the morning. Na Sulfate-K Sulfate-Mg Sulf 17.5-3.13-1.6 GM/177ML Oral [...] 2 hours before the procedure. 177 mL 0 Magnesium Oxide 400 MG Oral Tablet magnesium 400 mg (as magnesium oxide) tablet No current facility-administered medications for this visit. Review of patient's allergies indicates: Allergen Reactions Brovex Cb Other (Please comment) confusion Sherwin Inhibitors Cough Codeine Other (Please comment) confusion Past Medical History: Diagnosis Date Diabetic retinopathy associated with type 2 diabetes mellitus, without macular edema, with proliferative retinopathy 10/24/2015 early DM type 2, goal A1c below 7 Lower limb amputation, great toe, left ([facility]) 07/15/2018 Historical- please resolve/ update code to Z89.412- Acquired absence of Left Great Toe Malignant neoplasm of kidney ([facility]) 2001 renal cell carcinoma Moderate COPD (chronic obstructive pulmonary disease) ([facility]) Obesity, Class II, BMI 35.0-39.9, with comorbidity (see actual BMI) Osteomyelitis of toe of left foot ([facility]) s/p amputation 11/15/15 Other and unspecified hyperlipidemia Other and unspecified hyperlipidemia duplicate Other primary cardiomyopathies 06/2010 EF was 29% and now normal PAD (peripheral artery disease) ([facility]) 09/19/2017 Covered in E11.42 dm2 w/PVD combo code Solitary kidney, acquired left kidney remaining (right kidney removed) Past Surgical History: Procedure Laterality Date AMPUTATION OF TOE 11/15/2015 left third toe AMPUTATION OF TOE Left 03/29/2016 left 2nd toe; Dr. Carrillo DELIVERY 2000 COLONOSCOPY, DIAGNOSTIC (RECTUM) 04/29/2013 COLONOSCOPY FLEXIBLE PROXIMAL DIAGNOSTIC performed by Andrew Damico MD at ENDOSCOPY [facility] COLONOSCOPY, DIAGNOSTIC (RECTUM) 10/16/2023 prep-fair/ diverticulosis in sigmoid, multi polyps / biopsies benign adenomatous polyps / COLONOSCOPY FLEXIBLE PROXIMAL DIAGNOSTIC performed by Sonya Gusman DO at ENDOSCOPY [facility] CXR 2 VIEWS AP/PA & LATERAL 07/19/2009 Negative chest. REMOVAL OF KIDNEY 2001 right for renal cell cancer REMOVE TONSILS & ADENOIDS, AGE 12+ 2003 Family History Problem Relation Name Age of Onset Arthritis Mother Diabetes Mother Diabetes Father Heart Disorder Father mi age 40's Diabetes Sister Diabetes Brother Social History Socioeconomic History Marital status: Spouse name: Not on file Number of children: Not on file Years of education: Not on file Highest education level: Not on file Occupational History Not on file Tobacco Use Smoking status: Never Smokeless tobacco: Never Vaping Use Vaping status: Never Used Substance and Sexual Activity Alcohol use: No Drug use: No Sexual activity: Yes Partners: Male Other Topics Concern Not on file Social History Narrative Not on file Social Determinants of Health Financial Resource Strain: Not on file Food Insecurity: No Food Insecurity (02/11/2019) Hunger Vital Sign Worried About Running Out of Food in the Last Year: Never true Ran Out of Food in the Last Year: Never true Transportation Needs: Not on file Social Connections: Unknown (08/20/2023) Social Connections How often do you feel lonely or isolated from those around you? (Adult - for ages 18 years and over): Not on file Housing Stability: Not on file Ambulation: Without assisted device REVIEW OF SYSTEMS General: No fatigue, No change in weight Respiratory: No cough,No wheezing, No shortness of breath Cardiovascular:No chest pain, No palpitations, and No syncope, no falls Gastrointestinal: No nausea, vomiting, diarrhea + constipation No blood in stools Urinary: No dysuira, No hematuria. No flank pain Musculoskeletal:+ edema better in the morning worsen as the day goes Skin: No itching All other systems were reviewed and were negative. OBJECTIVE: BP 129/78 (BP Site: Right Arm, BP Position: Sitting, BP Cuff Size: Large) | Pulse 77 | Temp 36.1 C (97 F) | Resp 18 | Wt 108.9 kg (240 lb) | LMP 05/31/2014 | SpO2 92% | BMI 36.49 kg/m | BSA 2.29 m Wt Readings from Last 1 Encounters: 01/09/24 108.9 kg (240 lb) General appearance: alert, no apparent distress. HEAD: Normocephalic, No masses, lesions, tenderness Respiratory: clear to auscultation and no wheezes Heart: regular rate and regular rhythm Abdomen: abdomen soft, non-tender, and no CVA tenderness EXTREMITIES: no edema, Skin: skin color, texture, turgor are normal NEURO: alert & oriented x 3 with fluent speech, no focal motor/sensory deficits No tremor Patient is a reliable historian of events Last 4 BP Readings: BP Readings from Last 4 Encounters: 10/16/23 106/56 09/13/23 136/74 07/08/23 117/70 05/28/23 126/74 Last 3 Weights: Wt Readings from Last 3 Encounters: 10/09/23 109.2 kg (240 lb 12.8 oz) 07/12/24 109.2 kg (240 lb 12.8 oz) 07/08/23 110.2 kg (243 lb) Estimated body mass index is 36.61 kg/m as calculated from the following: Height as of 10/09/23: 1.727 m (5' 8"). Weight as of 10/09/23: 109.2 kg (240 lb 12.8 oz). LABS: Latest Reference Range & Units 03/02/22 08:10 05/07/22 00:00 08/03/22 12:11 05/17/23 14:31 05/28/23 09:54 12/30/23 12:00 SODIUM 135 - 146 mmol/L 140 137 141 136 POTASSIUM 3.5 - 5.1 mmol/L 4.3 4.5 (E) 4.6 4.4 4.7 4.9 CHLORIDE 98 - 107 mmol/L 103 100 106 101 CO2 22 - 32 mmol/L 24 20 (L) 21 (L) 26 BUN 6 - 20 mg/dL 38 (H) 39 (H) 35 (H) 28 (H) CREATININE 0.5 - 1.0 mg/dL 1.5 (H) 1.53 ! (E) 1.4 (H) 1.5 (H) 1.4 (H) EGFR >=60 mL/min 39 (L) 39 (E) 42 (L) 38 (L) 42 (L) ANION GAP 7 - 15 mmol/L 13 17 (H) 14 9 GLUCOSE 70 - 120 mg/dL 118 128 ! (E) 104 69 (L) 71 CALCIUM 8.4 - 10.2 mg/dL 9.0 9.4 9.6 9.4 (L): Data is abnormally low (H): Data is abnormally high !: Data is abnormal (E): External lab result Latest Reference Range & Units 11/03/19 14:40 01/17/21 08:37 08/03/22 12:11 09/28/22 07:57 12/30/23 12:00 Albumin / Creatinine Ratio, Urine <30 mg/g Creat 22 <15 <20 <11 39 (H) (H): Data is abnormally high otal Urine Volume >2.00 L/day 1.32 Low Comment: This test was developed and its analytical performance characteristics have been determined by [facility]. It has not been cleared or approved by the FDA. This assay has been validated pursuant to the CLIA regulations and is used for clinical purposes. PH Urine 5.5 - 7.0 5.7 Calcium, 24 Hour Urine <250.0 mg/day 52 Comment: This test was developed and its analytical performance characteristics have been determined by [facility]. It has not been cleared or approved by the FDA. This assay has been validated pursuant to the CLIA regulations and is used for clinical purposes. Oxalate, 24 Hour Urine <45 mg/day 38 Comment: This test was developed and its analytical performance characteristics have been determined by [facility]. It has not been cleared or approved by the FDA. This assay has been validated pursuant to the CLIA regulations and is used for clinical purposes. Uric Acid, 24 Hour Urine <700 mg/day 228 Comment: This test was developed and its analytical performance characteristics have been determined by [facility]. It has not been cleared or approved by the FDA. This assay has been validated pursuant to the CLIA regulations and is used for clinical purposes. Citric Acid, 24 Hour Urine >320 mg/day 109 Low Comment: This test was developed and its analytical performance characteristics have been determined by [facility]. It has not been cleared or approved by the FDA. This assay has been validated pursuant to the CLIA regulations and is used for clinical purposes. Sodium, 24 Hour Urine <200 mEq/day 123 Comment: This test was developed and its analytical performance characteristics have been determined by [facility]. It has not been cleared or approved by the FDA. This assay has been validated pursuant to the CLIA regulations and is used for clinical purposes. Sulfate, 24 Hour Urine <30 mmol/day 10 Comment: This test was developed and its analytical performance characteristics have been determined by [facility]. It has not been cleared or approved by the FDA. This assay has been validated pursuant to the CLIA regulations and is used for clinical purposes. Phosphorus, 24 Hour Urine <1100 mg/day 539 Comment: This test was developed and its analytical performance characteristics have been determined by [facility]. It has not been cleared or approved by the FDA. This assay has been validated pursuant to the CLIA regulations and is used for clinical purposes. Magnesium, 24 Hour Urine >60.0 mg/day 43 Low Comment: This test was developed and its analytical performance characteristics have been determined by [facility]. It has not been cleared or approved by the FDA. This assay has been validated pursuant to the CLIA regulations and is used for clinical purposes. Potassium, 24 Hour Urine 19 - 135 mEq/day 41 Comment: This test was developed and its analytical performance characteristics have been determined by [facility]. It has not been cleared or approved by the FDA. This assay has been validated pursuant to the CLIA regulations and is used for clinical purposes. Creatinine, 24 Hour Urine 600 - 1800 mg/day 775 Comment: This test was developed and its analytical performance characteristics have been determined by [facility]. It has not been cleared or approved by the FDA. This assay has been validated pursuant to the CLIA regulations and is used for clinical purposes. Calcium Oxalate <2.00 1.33 Brushite <2.00 0.25 Sodium Urate <2.00 0.97 Uric Acid <2.00 1.20 The Patient Has: SEE BELOW Comment: Hypocitraturia Low urine volume Supersaturation Index: DNR Suspected Problem Is: SEE BELOW Comment: Hypocitraturic Nephrolithiasis Comments DNR IMAGING: EXAM US RENAL-09/06/2022 11:51 am HISTORY monitoring pt with solitary kidney TECHNIQUE Real time sonographic imaging. COMPARISON CT abdomen and pelvis 11/24/2020. Renal ultrasound 01/02/2018. FINDINGS RIGHT KIDNEY: Surgically absent. LEFT KIDNEY: 11.0 cmx6.7 cmx5.5 cm. Normal size and echogenicity. Shadowing echogenic focus in the midpole likely represents a calculus. No hydronephrosis. No mass. BLADDER: Partially filled. AORTA: The distal aorta is ectatic measuring up to 1.7 x 2.1 cm. IMPRESSION IMPRESSION 1. Status post right nephrectomy. 2. Nonobstructive left nephrolithiasis. Otherwise unremarkable left kidney. 3. Ectatic distal aorta measuring up to 2.1 cm. Exam Ended: 09/06/22 11:51 ASSESSMENT/PLAN: The patient's most recent labs (from 1 month ago) were reviewed and the assessment/plan is as follows: Stable CKD 3A/B with creatinine at baseline 1 and mild albuminuria secondary to solitary kidney, diabetes, and obesity. Diabetes could be somewhat better controlled. Could nt tolerate Ozempic and nowwith Victoza.Right kidney was removed in 2001 secondary to RCC. Chemistries good. Volume status ok-She has some edema of left ankle - post surgical leg. HGB stable no concern with anemia Stage 3b chronic kidney disease (HCC) (Primary) Solitary kidney, acquired (Primary) H/o RCC s/p Nephrectomy. - NEPHROLOGY FOLLOW UP APPT (DEPARTMENT USE ONLY); Future; Expected date: 07/08/2024 - BASIC METABOLIC PANEL; Future; Expected date: 06/02/2024 - URINALYSIS WITH MICROSCOPIC EXAM; Future; Expected date: 06/02/2024 - ALBUMIN / CREATININE RATIO, URINE; Future; Expected date: 06/02/2024 - 25-HYDROXY VITAMIN D; Future; Expected date: 06/02/2024 - PTH; Future; Expected date: 06/02/2024 HTN, goal below 140/90 Blood pressure is at goal . No Sherwin or Arb use due to elevated potassium and worsening kidney function in a single kidney status. With lasix and Metoprolol only. - NEPHROLOGY FOLLOW UP APPT (DEPARTMENT USE ONLY); Future; Expected date: 07/08/2024 - BASIC METABOLIC PANEL; Future; Expected date: 06/02/2024 - URINALYSIS WITH MICROSCOPIC EXAM; Future; Expected date: 06/02/2024 - ALBUMIN / CREATININE RATIO, URINE; Future; Expected date: 06/02/2024 Left renal stone Incidental finding on 09/06/2022.Does drink lot of water and lemon juice. Stopped vit D--levels now at 32 Repeat imaging - US RENAL; Future; Expected date: 01/09/2024 Labs placed No changes to medications Will monitor mild inc in albuminuria levels Push fluids with lemon juice Avoid medicines like aleve, advil, ibuprofen, aspirin more than 81 mg daily and other NSAIDS which are not good for kidney patients. Take only tylenol (acetaminophen) up to 2000 mg daily as needed for pain or as directed by your primary care provider. Reviewed previous status of kidney function and goals of care. All questions were answered. WON Dao DR documented in this encounter Nursing Notes * Mell Ceballos RN - 01/09/2024 1:03 PM EST Follow up visit today. No recent illness. Recent labs done. documented in this encounter Plan of Treatment Upcoming Encounters Date Type Department Care Team (Latest Contact Info) Description 01/15/2024 9:36 AM EST Hospital Encounter OR [facility], Operating Room, [facility] - 4th Floor [address] [facility] [place] [phone] Kell Santos MD [address] [place] [address] 01/15/2024 9:36 AM EST - 01/15/2024 11:12 AM EST Surgery OR [facility], Operating Room, [facility] - 4th Floor [address] [facility] [place] [phone] Kell Santos MD [address] [place] [address] COLONOSCOPY, FLEXIBLE; WITH ENDOSCOPIC MUCOSAL RESECTION 03/20/2024 8:40 AM EST Office Visit Family Medicine [address] [place] [phone] Promise Sandoval MD [address] [place] [address] [place] [address] 03/26/2024 8:30 AM EST Office Visit Cardiology [address] [place] [address] Liborio Ennis PA-C [address] [place] [address] 08/26/2024 9:00 AM EDT Office Visit Nephrology, Dilan Wen [address] [facility] [place] [address] ZemaMaryjo adams PA-C [address] [place] [address] 09/15/2024 8:00 AM EDT Office Visit Cardiology, [facility] [address] [place] [address] Sonya Olivera CRNP [address] [place] [address] 11/27/2024 9:00 AM EDT Imaging Radiology [address] [place] [id number] Scheduled Orders Name Type Priority Associated Diagnoses Orde r Schedule BASIC METABOLIC PANEL Lab Routine Solitary kidney, acquired HTN, goal below 140/90 Expected: 06/02/2024, Expires: 01/08/2025 URINALYSIS WITH MICROSCOPIC EXAM Lab Routine Solitary kidney, acquired HTN, goal below 140/90 Expected: 06/02/2024, Expires: 01/08/2025 ALBUMIN / CREATININE RATIO, URINE Lab Routine Solitary kidney, acquired HTN, goal below 140/90 Expected: 06/02/2024, Expires: 01/08/2025 25-HYDROXY VITAMIN D Lab Routine Solitary kidney, acquired Expected: 06/02/2024, Expires: 01/08/2025 PTH Lab Routine Solitary kidney, acquired Expected: 06/02/2024, Expires: 01/08/2025 RENAL Medical Imaging Routine Left renal stone Expected: 01/09/2024, Expires: 02/07/2025 Scheduled Procedures Name Priority Associated Diagnoses Date/Ti [...] Additional history exists CKD HGB USE SMARTSET 76991 05/27/202405/27, 05/17/2023, 05/17/2023, Additional history exists GFR 06/29/2024 12/30/2023, 05/02, 08/03/2022, Additional history exists Cervical Cancer Screening 07/10/2024 Pap Smear 07/10/2024 07/10/2021, 10/02, 10/09/2017, Additional history exists Diabetic Eye Exam 11/17/2024 11/18/2023, , 11/18/2023, Additional history exists Mammogram 11/21/2024 11/22/2023, 11/03, 11/16/2022, Additional history exists Albumin/Creatinine Ratio 12/29/2024 024, 09/28/2022, 08/03/2022, Additional history exists CKD PHOS USE SMARTSET 44888 12/29/202412/03, 05/17/2023, 08/03/2022, Additional history exists Colonoscopy [...] as of this encounter Visit Diagnoses Diagnosis Stage 3b chronic kidney disease (HCC)- Primary Solitary kidney, acquired Acquired absence of kidney HTN, goal below 140/90 Unspecified essential hypertension Left renal stone Colon polyp Benign neoplasm of colon Screening mammogram for breast cancer documented in this encounter Care Teams Pocket And Pulley Machine Operator Relationship Specialty Start Date End Date Promise Sandoval MD [address] [place] [address] [place] [phone] PCP - General Family Medicine 04/08/18 documented as of this encounter
--- OUTSIDE RECORDS SUMMARY | 2024-03-07 00:48 | External Medical Summary | Summary of Care ---
Author Name Unknown Organization [facility] Address [address] [place] [address] Phone [phone] Care Team Providers Care Solvent Station Attendant Name Role Phone Promise Sandoval MD Primary Care Provide r Encounter Details Date Type Department Care Team (Late st Contact Info) Description 11/26/2023 Orders Only Laboratory [address] [place] [phone] Jeovanny Champion PA-C [address] [address] DM type 2, not at goal (HCC)*; Insulin long-term use (HCC) Allergies Active Allergy Reactions Criticality Noted Date Comments Sherwin Inhibitors Cough 06/19/2011 Brovex Cb Other (Please comment) High 04/08/2010 confusion Codeine Other (Please comment) 04/03/2016 confusion documented as of this encounter (statuses as of 11/26/2023) Medications Medication Sig Dispensed Refills Start Date [...] as of this encounter (statuses as of 11/26/2023) Active Problems Problem Noted Date Diagnosed Date Chronic diastolic congestive heart failure 05/26 Type 2 diabetes mellitus with peripheral vascula r disease 09/24/2022 Vitreous hemorrhage, bilateral 03/06/2022 Type 2 diabetes mellitus wit h proliferative diabetic retinopathy of both eyes without macular edema 08/22/2021 Atherosclerosis of [place] co ronary artery without angina pectoris 08/22/2021 [...] as of this encounter (statuses as of 11/26/2023) Resolved Problems Problem Noted Date Diagnosed Date [...] as of this encounter (statuses as of 11/26/2023) Immunizations Name Administration Dates Next Due COVID-19 mRNA, LNP-s, No Pre serve, 2-Dose Series (Timescape) 02/28/2021,02/07/2021 COVID-19, LNP-s, No Preserve , Ramirez-sucrose, Ages 12+ (Pfizer) 08/22/2021 Pneumococcal Polysaccharide PPV23 (Pneumovax) 12/03/2009 Seasonal Influenza, Quadriva lent, No Preserve, IM 12/27/2015 Seasonal Influenza, Trivalen t, (IIV3), with Preserv, (Fluzone) 11/11/2013,02/06/2011,12/03/2009 TDAP, Age 7 and older, IM (Adacel) [...] Visit Nephrology, [facility] [address] [place] [address] Maryjo Esparza PA-C 200 [facility] [place] [address] 01/15/2024 9:36 AM EST Hospital Encounter OR [facility], Operating Room, [facility] - 4th Floor [address] [place] [phone] Kell Santos MD [address] [place] [address] 01/15/2024 9:36 AM EST - 01/15/2024 11:12 AM EST Surgery OR [facility], Operating Room, [facility] - 4th Floor [address] [place] [phone] Kell Santos MD [address] [place] [address] COLONOSCOPY, FLEXIBLE; WITH ENDOSCOPIC MUCOSAL RESECTION 03/20/2024 8:40 AM EST Office Visit Family Medicine [address] [place] [phone] Promise Sandoval MD [address] [place] [address] [place] [address] 03/26/2024 8:30 AM EST Office Visit Cardiology [address] [place] [address] Liborio Ennis PA-C [address] [place] [address] 09/15/2024 8:00 AM EDT Office Visit Cardiology, [facility] [address] [place] [address] Sonya Olivera CRNP 400 [facility] [place] [address] 11/27/2024 9:00 AM EDT Imaging Radiology [address] [place] [address] Pending Results Name Type Priority Associated Diagnoses Date /Time HEMOGLOBIN A1C Lab Routine DM type 2, not at goal (HCC) Insulin long-term use (HCC) 11/26/2023 11:28 AM EDT Scheduled Orders Name Type Priority Associated Diagnoses Orde r Schedule HEMOGLOBIN A1C Lab Routine DM type 2, not at goal (HCC) Insulin long-term use (HCC) Expected: 11/26/2023, Expires: 11/25/2024 Scheduled Procedures Name Priority Associated Diagnoses Date/Ti [...] 02/06/2011, Additional history exists GFR 11/17/2023 05/17/2023, 06/0 04/2022, 05/07/2022, Additional history exists HbA1c 11/17/2023 05/17/2023, 09/02, 05/07/2022, Additional history exists CKD PHOS USE SMARTSET 92190 05/16/202405/02, 08/03/2022, 08/07/2021, Additional history exists CKD HGB USE SMARTSET 54236 05/27/202405/27, 05/17/2023, 05/17/2023, Additional history exists Cervical Cancer Screening 07/10/2024 Pap Smear 07/10/2024 07/10/2021, 10/02, 10/09/2017, Additional history exists Diabetic Eye Exam 11/17/2024 11/18/2023, , 09/10/2023, Additional history exists Mammogram 11/21/2024 11/22/2023, 11/02, 11/16/2022, Additional history exists Colonoscopy 10/15/2033 10/16/2023, [...] as of this encounter Visit Diagnoses Diagnosis DM type 2, not at goal (HCC)- Primary Type II or unspecified type diabetes mellitus without mention of complication, not stated as uncontrolled Insulin long-term use (HCC) Encounter for long-term (current) use of insulin Colon polyp Benign neoplasm of colon Screening mammogram for breast cancer documented in this encounter Care Teams Solvent Station Attendant Relationship Specialty Start Date End Date Promise Sandoval MD [address] [place] [address] [place] [address] PCP - General Family Medicine 04/08/18 documented as of this encounter
--- OUTSIDE RECORDS SUMMARY | 2024-03-07 00:48 | External Medical Summary ---
Author Name Unknown Address Unknown Organization K01[place] [place] [address] [place] [address] Laboratory Report Ordering Provider Test Date Status BISI MCCARTYSTEPHEN 11/26/2023 11:28:48 Final Observation Date Value Abnormality Reference (Units ) Status HbA1C 11/26/2023 11:28:48 8.7 Above high normal 4. 0-5.6 (%) Final The use of HbA1c to monitor glycemic status is based on normal hemoglobin and HbA composition. This test should not be used in patients with abnormal hemoglobin that affects the half life of the red blood cell or the in vivo glycation rates. Glucose, estimated average 11/26/2023 11:28:48 203 Above high normal <126 (mg/dL) Cooper triplett Performing Location [facility] [place] [address] [place] [address]
--- OUTSIDE RECORDS SUMMARY | 2024-03-07 00:48 | External Medical Summary | Summary of Care ---
Author Name Unknown Organization [facility] Address [address] [facility] [place] [address] Phone [phone] Care Team Providers Care Seamer Name Role Phone Promise Sandoval MD Primary Care Provide r Reason for Visit * Reason Comments Outpatient Testing Encounter Details Date Type Department Care Team (Late st Contact Info) Description 11/26/2023 11:30 AM EDT Laboratory Laboratory [address] [place] [phone] [place] [address] DM type 2, not at goal ([facility]); Insulin long-term use ([facility]) Allergies Active Allergy Reactions Criticality Noted Date [...] eyes without macular edema 08/22/2021 Atherosclerosis of [place] co ronary artery without angina pectoris 08/22/2021 [...] mRNA, LNP-s, No Pre serve, 2-Dose Series (Hairbobo) 02/28/2021,02/07/2021 COVID-19, LNP-s, No Preserve , Ramirez-sucrose, [...] 01/09/2024 1:00 PM EST Office Visit Nephrology, [facility] [address] [place] [address] Maryjo Esparza PA-C [address] [place] [address] 01/15/2024 9:36 AM EST Hospital Encounter OR [facility], Operating Room, [facility] - 4th Floor [address] [place] [phone] Kell Santos MD [address] [place] [address] 01/15/2024 9:36 AM EST - 01/15/2024 11:12 AM EST Surgery OR [facility], Operating Room, [facility] - 4th Floor [address] [place] [phone] Kell Santos MD [address] [place] [address] COLONOSCOPY, FLEXIBLE; WITH ENDOSCOPIC MUCOSAL RESECTION 03/20/2024 8:40 AM EST Office Visit Family Medicine [address] [place] [phone] Promise Sandoval MD [address] [place] [address] [place] [address] 03/26/2024 8:30 AM EST Office Visit Cardiology [address] [place] [address] Liborio Ennis PA-C [address] [place] [address] 09/15/2024 8:00 AM EDT Office Visit Cardiology, [facility] [address] [place] [address] Sonya Olivera CRNP 400 [facility] [place] [address] 11/27/2024 9:00 AM EDT Imaging Radiology [address] [place] [address] Pending Results Name Type Priority Associated Diagnoses Date /Time HEMOGLOBIN A1C Lab Routine DM type 2, not at goal (HCC) Insulin long-term use (HCC) 11/26/2023 11:28 AM EDT Scheduled Procedures Name Priority Associated Diagnoses Date/Ti mo COLONOSCOPY, FLEXIBLE; WITH ENDOSCOPIC MUCOSAL RESECTION Recall [...] 02/06/2011, Additional history exists GFR 11/17/2023 05/17/2023, 0604/2022, 05/07/2022, Additional history exists HbA1c 11/17/2023 05/17/2023, 09/02, 05/07/2022, Additional history exists CKD PHOS USE SMARTSET 09150 05/16/202405/02, 08/03/2022, 08/07/2021, Additional history exists CKD HGB USE SMARTSET 63179 05/27/202405/27, 05/17/2023, 05/17/2023, Additional history exists Cervical [...] Diagnosis DM type 2, not at goal (HCC) Type II or unspecified type diabetes mellitus without mention of complication, not stated as uncontrolled Insulin long-term use (HCC) Encounter for long-term (current) use of insulin Colon polyp Benign neoplasm of colon Screening mammogram for breast cancer documented in this encounter Care Teams Seamer Relationship Specialty Start Date End Date Promise Sandoval MD [address] [place] [address] [place] [address] PCP - General Family Medicine 04/08/18 documented as of this encounter
--- OUTSIDE RECORDS SUMMARY | 2024-03-07 00:48 | External Medical Summary ---
Author Name Unknown Address Unknown Organization K01:[facility] [place] [address] [place] [address] Laboratory Report Ordering Provider Test Date Status MARK MCKNIGHT 12/30/2023 12:00:44 Final Observation Date Value Abnormality Reference (Units ) Status BUN 12/30/2023 12:00:44 28 Above high normal 6-20 (mg/dL) Final Creatinine 12/30/2023 12:00:44 1.4 Above high normal 0.5-1.0 (mg/dL) Final Glomerular filtration rate/1.73 sq M.predicted [Volume Rate/Area] in Serum, Plasma or Blood by Creatinine-based formula (CKD-EPI) 12/30/2023 12:00:44 42 Below low normal >=60 (mL/min) Final eGFR is calculated based on the CKD-EPI 2020 equation. Sodium 12/30/2023 12:00:44 136 135-146 (m mol/L) Final Potassium 12/30/2023 12:00:44 4.9 3.5-5.1 (m mol/L) Final Cl 12/30/2023 12:00:44 101 98-107 (mm ol/L) Final CO2 12/30/2023 12:00:44 26 22-32 (mmo l/L) Final Anion gap 12/30/2023 12:00:44 9 7-15 (mmol /L) Final Glucose 12/30/2023 12:00:44 71 70-120 (mg /dL) Final Calcium 12/30/2023 12:00:44 9.4 8.4-10.2 ( mg/dL) Final Albumin 12/30/2023 12:00:44 4.1 3.8-5.0 (g /dL) Final Phosphate 12/30/2023 12:00:44 3.4 2.5-4.8 (m g/dL) Final Performing Location [facility] [place] [address] [place] [address]
--- OUTSIDE RECORDS SUMMARY | 2024-03-07 00:48 | External Medical Summary | Summary of Care ---
Author Name Unknown Organization [facility] Address [address] [facility] [place] [address] Phone [phone] Care Team Providers Care Toy Electric Train Repairer Name Role Phone Promise Sandoval MD Primary Care Provide r Encounter Details Date Type Department Care Team (Late st Contact Info) Description 12/28/2023 Orders Only PATIENT PORTAL DO NOT DELETE THIS DEPT USED BY [place] [phone] Allergies Active Allergy Reactions Criticality Noted Date Comments Sherwin Inhibitors Cough 06/19/2011 Brovex Cb Other (Please comment) High 04/08/2010 confusion Codeine Other (Please comment) 04/03/2016 confusion documented as of this encounter (statuses as of 12/28/2023) Medications Medication Sig Dispensed Refills Start Date [...] disease, with long-term current use of insulin ([facility]) INJECT 50 UNITS UNDER THE SKIN TWO [...] A1c goal of less than 7.0% ([facility]) INJECT 25 UNITS WITH MEALS DIRECTED 75 [...] as of this encounter (statuses as of 12/28/2023) Active Problems Problem Noted Date Diagnosed Date Chronic diastolic congestive heart failure 05/26 Type 2 diabetes mellitus with peripheral vascula r disease 09/24/2022 Vitreous hemorrhage, bilateral 03/06/2022 Type 2 diabetes mellitus wit h proliferative diabetic retinopathy of both eyes without macular edema 08/22/2021 Atherosclerosis of [place] co ronary artery without angina pectoris 08/22/2021 [...] as of this encounter (statuses as of 12/28/2023) Resolved Problems Problem Noted Date Diagnosed Date [...] as of this encounter (statuses as of 12/28/2023) Immunizations Name Administration Dates Next Due COVID-19 [...] EST Office Visit Nephrology, [facility] Wen 200 [facility] [place] [address] ZemaMaryjo adams PA-C 200 [facility] [place] [address] 01/15/2024 9:36 AM EST Hospital Encounter OR [facility], Operating Room, [facility] - 4th Floor [address] [place] [phone] Kell Santos MD [address] [place] [address] 01/15/2024 9:36 AM EST - 01/15/2024 11:12 AM EST Surgery OR [facility], Operating Room, [facility] - 4th Floor [address] [place] [place] [phone] Kell Santos MD [address] [place] [address] COLONOSCOPY, FLEXIBLE; WITH ENDOSCOPIC MUCOSAL RESECTION 03/20/2024 8:40 AM EST Office Visit Family [address] [place] [phone] Promise Sandoval MD [address] [place] [address] [place] [address] 03/26/2024 8:30 AM EST Office Visit Cardiology [address] [place] [address] Liborio Ennis PA-C [address] [place] [address] 09/15/2024 8:00 AM EDT Office Visit Cardiology, [facility] [address] [place] [address] Sonya Olivera CRNP 400 [facility] [place] [address] 11/27/2024 9:00 AM EDT Imaging Radiology [address] [place] [address] Scheduled Procedures Name Priority Associated Diagnoses Date/Ti [...] Additional history exists CKD PHOS USE SMARTSET 02664 05/16/202405/02, 08/03/2022, 08/07/2021, Additional history exists HbA1c 05/25/2024 11/26/2023, 05/02, 09/28/2022, Additional history exists CKD HGB USE SMARTSET 48919 05/27/202405/27, 05/17/2023, 05/17/2023, Additional history exists Cervical [...] filedocumented as of this encounter Care Teams Toy Electric Train Repairer Relationship Specialty Start Date End Date Promise Sandoval MD [address] [place] [address] [place] [address] PCP - General Family Medicine 04/08/18 documented as of this encounter
--- OUTSIDE RECORDS SUMMARY | 2024-03-07 00:48 | External Medical Summary | Summary of Care ---
Author Name Unknown Organization [facility] Address [address] [facility] [place] [address] Phone [phone] Care Team Providers Care Electrician Helper Automotive Name Role Phone Promise Sandoval MD Primary Care Provide r Reason for Visit * Reason Onset Date Comments Outpatient Testing 12/25/2023 Encounter Details Date Type Department Care Team (Late st Contact Info) Description 12/25/2023 Telephone Nephrology, [facility] Wen [address] [place] [address] Reece Bella MD 200 [place] [address] Outpatient Testing Allergies Active Allergy Reactions Criticality Noted Date Comments Sherwin Inhibitors Cough 06/19/2011 Brovex Cb Other (Please comment) High 04/08/2010 confusion Codeine Other (Please comment) 04/03/2016 confusion documented as of this encounter (statuses as of 12/25/2023) Medications Medication Sig Dispensed Refills Start Date [...] as of this encounter (statuses as of 12/25/2023) Active Problems Problem Noted Date Diagnosed Date Chronic diastolic congestive heart failure 05/26 Type 2 diabetes mellitus with peripheral vascula r disease 09/24/2022 Vitreous hemorrhage, bilateral 03/06/2022 Type 2 diabetes mellitus wit h proliferative diabetic retinopathy of both eyes without macular edema 08/22/2021 Atherosclerosis of [place] co ronary artery without angina pectoris 08/22/2021 [...] as of this encounter (statuses as of 12/25/2023) Resolved Problems Problem Noted Date Diagnosed Date [...] as of this encounter (statuses as of 12/25/2023) Immunizations Name Administration Dates Next Due COVID-19 [...] encounter Miscellaneous Notes * Telephone Encounter - Mlel Ceballos RN - 12/25/2023 2:15 PM EDT TE with pt regarding labs nneded for upcoming appt. Ckd labs ordered per protocol. documented in this encounter Plan of Treatment Upcoming Encounters Date Type Department Care Team (Latest Contact Info) Description 01/09/2024 1:00 PM EST Office Visit Nephrology, [facility] [address] [place] [address] Maryjo Esparza PA-C 200 [facility] [place] [address] 01/15/2024 9:36 AM EST Hospital Encounter OR [facility], Operating Room, [facility] - 4th Floor [address] [place] [phone] Kell Santos MD [address] [place] [address] 01/15/2024 9:36 AM EST - 01/15/2024 11:12 AM EST Surgery OR [facility], Operating Room, [facility] - 4th Floor [address] [place] [phone] Kell Santos MD [address] [place] [address] COLONOSCOPY, FLEXIBLE; WITH ENDOSCOPIC MUCOSAL RESECTION 03/20/2024 8:40 AM EST Office Visit Family Medicine [address] [place] [phone] Promise Sandoval MD [address] [place] [address] [place] [address] 03/26/2024 8:30 AM EST Office Visit Cardiology [address] [place] [address] Liborio Ennis PA-C [address] [place] [address] 09/15/2024 8:00 AM EDT Office Visit Cardiology, [facility] [address] [place] [address] Sonya Olivera CRNP [address] [place] [address] 11/27/2024 9:00 AM EDT Imaging Radiology [address] [place] [address] Scheduled Orders Name Type Priority Associated Diagnoses Orde r Schedule ALBUMIN / CREATININE RATIO, URINE Lab STAT Hypertensive kidney disease with stage 3b chronic kidney disease (HCC) Expected: 12/25/2023, Expires: 12/24/2024 RENAL FUNCTION PANEL Lab STAT Hypertensive kidney disease with stage 3b chronic kidney disease (HCC) Expected: 12/25/2023, Expires: 12/24/2024 Scheduled Procedures Name Priority Associated Diagnoses Date/Ti [...] 11/17/2023 05/17/2023, 0604/2022, 05/07/2022, Additional history exists CKD PHOS USE SMARTSET 94309 05/16/202405/02, 08/03/2022, 08/07/2021, Additional history exists HbA1c 05/25/2024 11/26/2023, 05/02, 09/28/2022, Additional history exists CKD HGB USE SMARTSET 85159 05/27/202405/27, 05/17/2023, 05/17/2023, Additional history exists Cervical [...] disease with stage 3b chronic kidney disease (HCC)- Primary Colon polyp Benign neoplasm of colon Screening mammogram for breast cancer documented in this encounter Care Teams Electrician Helper Automotive Relationship Specialty Start Date End Date Promise Sandoval MD [address] [place] [address] [place] [phone] PCP - General Family Medicine 04/08/18 documented as of this encounter
[2024-03-07] MEDS ORDERED: DEXTROSE 50% 50 ML SYRINGE IV PRN (01:12)
[2024-03-07] MEDS ORDERED: POLYETHYLENE (MIRALAX) 17 GM PACK PO PRN (01:12)
[2024-03-07] MEDS ORDERED: PHARMACY GLYCEMIC MGMT CONSULT PRN (01:12)
[2024-03-07] MEDS ORDERED: GLUCOSE 10 TAB/TUBE PO PRN (01:12)
[2024-03-07] MEDS ORDERED: GLUCAGON FOR INJ 1 MG VIAL SQ PRN (01:12)
[2024-03-07] MEDS ORDERED: NITROGLYCERIN SL 0.4 MG/TAB TAB SL PRN (01:12)
[2024-03-07] MEDS ORDERED: CARBOHYDRATES FOR HYPOGLYCEMIA PO PRN (01:12)
[2024-03-07] MEDS ORDERED: ACETAMINOPHEN 325 MG TAB PO PRN (01:12)
[2024-03-07] MEDS ORDERED: GLUCOSE 40% GEL 15 GM TUBE PO PRN (01:12)
[2024-03-07] MEDS: cefTRIAXone SODIUM 2,000 MG/50 ML BAG IV SCH (02:10)
[2024-03-07] MEDS: INSULIN ASPART PER UNIT CHARGE SC SCH ×2 (02:18→18:33)
--- NOTE | 2024-03-07 02:30 | Ultrasound Report ---
Exam(s): US VENOUS BILATERAL LOWER EXTREMITIES EXAM: US Duplex Bilateral Lower Extremities Veins CLINICAL HISTORY: Reason for exam: Lower extremity swelling, DVT, R > L. TECHNIQUE: Real-time duplex ultrasound scan of the bilateral lower extremity veins integrating B-mode two-dimensional vascular structure, Doppler spectral analysis, color flow Doppler imaging and compression. COMPARISON: No relevant prior studies available. FINDINGS: Right deep veins: Unremarkable. No DVT in the right common femoral, femoral, proximal deep femoral or popliteal veins. The veins demonstrate normal color flow, are normally compressible, with normal phasic flow and/or augmentation response. Right superficial veins: Unremarkable. No thrombus in the visualized right great saphenous vein. Left deep veins: Unremarkable. No DVT in the left common femoral, femoral, proximal deep femoral or popliteal veins. The veins demonstrate normal color flow, are normally compressible, with normal phasic flow and/or augmentation response. Left superficial veins: Unremarkable. No thrombus in the visualized left great saphenous vein. Soft tissues: No acute findings. No popliteal cyst. IMPRESSION: No evidence of DVT in the bilateral lower extremity veins. Electronically signed by: Sunny Cochran MD 03/07/24 02:30 AM
--- OUTSIDE RECORDS SUMMARY | 2024-03-07 02:53 | External Medical Summary | Summary of Care ---
Author Name Unknown Organization [facility] Address [address] [place] [address] Phone [phone] Care Team Providers Care Labor Custodian Name Role Phone Promise Sandoval MD Primary Care Provide r Reason for Visit * Reason Comments Acute Encounter Details Date Type Department Care Team (Late st Contact Info) Description 03/06/2024 2:40 PM EST Office Visit Family Medicine [address] [phone] Pierre Atkins [address] [place] [address] Right leg swelling* Allergies Active Allergy Reactions Criticality Noted Date Comments Sherwin Inhibitors Cough 06/19/2011 Brovex Cb Other (Please comment) High 04/08/2010 confusion Codeine Other (Please comment) 04/03/2016 confusion documented as of this encounter (statuses as of 03/06/2024) Medications FREESTYLE LITE TEST STRPIndications:DM type 2, [...] MOUTH EVERY MORNING 90 Tablet 3 4 10:25 AM EST 03/18/19 24 025 Active Furosemide 40 MG [...] MOUTH EVERY MORNING 90 Tablet 1 4 10:25 AM EST 05/03/19 24 Active Magnesium 400 MG Oral [...] A1c goal of less than 7.0% ([facility]) INJECT 25 UNITS WITH MEALS DIRECTED 75 [...] Liraglutide 18 MG/3ML Subcutaneous Solution Pen-injector (Victoza) Inject 1.8 mg (0.3 mL) subcutaneously daily for 90 days 27 mL 3 4 6:34 AM EST 02/18/20 24 Active Cephalexin 500 MG Oral CapsuleIndications :Right leg swelling Take 1 Capsule by mouth in the morning and 1 Capsule at noon and 1 Capsule in the evening and 1 Capsule before bedtime. Do all this for 7 days. 28 Capsule 03/06/19 25 025 Active documented as of this encounter (statuses as of 03/06/2024) Active Problems Problem Noted Date Diagnosed Date Chronic diastolic congestive heart failure 05/26 Type 2 diabetes mellitus with peripheral vascula r disease 09/24/2022 Vitreous hemorrhage, bilateral 03/06/2022 Type 2 diabetes mellitus wit h proliferative diabetic retinopathy of both eyes without macular edema 08/22/2021 Atherosclerosis of [place] co ronary artery without angina pectoris 08/22/2021 [...] as of this encounter (statuses as of 03/06/2024) Resolved Problems Problem Noted Date Diagnosed Date [...] as of this encounter (statuses as of 03/06/2024) Immunizations Name Administration Dates Next Due COVID-19 mRNA, LNP-s, No Pre serve, 2-Dose Series ([email or web address]) 02/28/2021,02/07/2021 COVID-19, LNP-s, No Preserve , Ramirez-sucrose, [...] Sign Reading Time Taken Comments Blood Pressure 130/74 03/06/2024 2:08 PM EST Pulse 88 03/06/2024 2:08 PM EST Temperature - - Respiratory Rate - - Oxygen Saturation - - Inhaled Oxygen Concentration - - Weight - - Height - - Body Mass Index - - documented in this encounter Nursing Notes * Elisa Chance LPN - 03/06/2024 2:08 PM EST Right leg swelling x 2 weeks Wore some compression socks & changed lasix a bit for a few days & drank more water to flush out Night sweats now too documented in this encounter Plan of Treatment Upcoming Encounters Date Type Department Care Team (Late st Contact Info) Description 03/09/2024 2:45 PM EST Imaging Radiology [address] [place] [address] 03/20/2024 8:40 AM EST Office Visit Family Medicine [address] [place] [phone] Promise Sandoval MD [address] [place] [address] [place] [address] 03/26/2024 8:30 AM EST Office Visit Cardiology [address] [place] [address] Liborio Ennis PA-C [address] [place] [address] 05/04/2024 9:00 AM EST Imaging Radiology [address] [place] [address] 08/26/2024 9:00 AM EDT Office Visit Nephrology, [facility] [address] [facility] [place] [address] Maryjo Esparza PA-C [address] [place] [address] 09/15/2024 8:00 AM EDT Office Visit Cardiology, [facility] [address] [place] [address] Sonya Olivera CRNP [address] [place] [id number] 11/27/2024 9:00 AM EDT Imaging Radiology [address] [place] [address] Scheduled Orders Name Type Priority Associated Diagnoses Orde r Schedule VASC DUPLEX VENOUS LE UNILAT Medical Imaging STAT Right leg swelling Ordered: 03/06/2024 Scheduled Procedures Name Priority Associated Diagnoses Date/Ti me COLONOSCOPY FLEXIBLE PROXIMAL DIAGNOSTIC Recall Colon polyp Health Maintenance Due Date Last Done Comments HIV Screening 1975 Hepatitis C Screening 08/07/1979 HPV/Co-Test 08/07/1991 Cologuard 2006 Fecal Occult Blood Test 2006 Sigmoidoscopy 2006 Pneumococcal Vaccine: 50+ Years (2 of 2 - PCV) 12/03/2010 12/03/2009 [...] Additional history exists CKD HGB USE SMARTSET 08039 05/27/202405/27, 05/17/2023, 05/17/2023, Additional history exists GFR 06/29/2024 12/30/2023, 05/02, 08/03/2022, Additional history exists Cervical Cancer Screening 07/10/2024 Pap Smear 07/10/2024 07/10/2021, 10/02, 10/09/2017, Additional history exists Mammogram 11/21/2024 11/22/2023, 11/03, 11/16/2022, Additional history exists Albumin/Creatinine Ratio 12/29/2024 024, 09/28/2022, 08/03/2022, Additional history exists CKD PHOS USE SMARTSET 16391 12/29/202412/03, 05/17/2023, 08/03/2022, Additional history exists Diabetic [...] as of this encounter Visit Diagnoses Diagnosis Right leg swelling- Primary Screening mammogram for breast cancer documented in this encounter Care Teams Labor Custodian Relationship Specialty Start Date End Date Promise Sandoval MD [address] [place] [address] [place] [address] PCP - General Family Medicine 04/08/18 documented as of this encounter
[2024-03-07 05:24] LABS: Basophils # (auto) 0.08 K/uL (0.00-0.20); Basophils % (auto) 0.9 %; Eosinophils # (auto) 0.24 K/uL (0.00-0.50); Eosinophils % (auto) 2.7 %; Hemoglobin 11.9 g/dl (12.0-16.0); Immature Granulocytes # (auto) 0.03 K/uL (0.01-0.20); Immature Granulocytes % (auto) 0.3 %; Lymphocytes # (auto) 1.83 K/uL (1.20-3.40); Lymphocytes % (auto) 20.3 %; Mean Corpuscular Hemoglobin 28.3 pg (25.0-34.0); Mean Corpuscular Hgb Conc 33.1 g/dL (32.0-36.0); Mean Corpuscular Volume 85.5 fL (80.0-100.0); Mean Platelet Volume 9.7 fL (9.4-12.4); Monocytes # (auto) 0.97 K/uL (0.11-0.59); Monocytes % (auto) 10.7 %; Neutrophils # (auto) 5.88 K/uL (1.40-6.50); Neutrophils % (auto) 65.1 %; Platelet Count 374 K/uL (130-400); RDW Coefficient of Variation 12.2 % (11.5-14.5); RDW Standard Deviation 37.9 fL (36.4-46.3); Red Blood Count 4.21 M/uL (4.20-5.40); White Blood Count 9.03 K/ul (4.8-10.8)
[2024-03-07 05:34] LABS: BUN Creatinine Ratio 30.3 (10-20); Calcium 8.6 mg/dl (8.6-10.3); Magnesium 2.5 mg/dl (1.7-2.4); Potassium 3.9 mmol/L (3.5-5.1)
[2024-03-07 05:47] LABS: Troponin I High Sensitivity 67.7 pg/ml (0-14)
[2024-03-07] MEDS: HEPARIN SOD 5,000 UNIT/0.5 ML VIAL SQ SCH (06:45)
[2024-03-07 08:31] LABS: Estimated Average Glucose 200 mg/dl; Hemoglobin A1C 8.6 % (4.5-5.6)
--- NOTE | 2024-03-07 09:12 | Cardiology Consultation ---
Date of Consultation March 07, 2024 Assessment & Plan (1) Acute CHF: (2) Cardiomyopathy: Patient with mild troponin elevation, flat trend, findings radiographically on CT angiogram consistent with mild pulmonary edema. Not certain if her recent swelling of the right lower extremity is due to fluid retention from CHF or venous insufficiency. She has a history of nonischemic cardiomyopathy historically. Recent ischemic workup was negative as noted. Agree with having held her oral furosemide in favor of IV furosemide 40 mg IV twice daily. Patient has a recent history of known Mobitz type I second-degree AV block. This is redemonstrated on telemetry at present. Will cautiously continue meto prolol for now and repeat an EKG, ventricular rates in the 80s 200s without bradycardia. History of Present Illness Attending Physician: Chago Radford MD History of Present Illness Gina Allison is a 63 year old female seen in cardiology consultation per the request of Dr Berry for the evaluation of congestive heart failure. Gina's Chief complaint that transfer to the hospital is recent progressive pain and swelling in her right lower leg. She describes her right lower leg as being her "good leg ". Which is typically not swollen and does not give her problems. Her left leg typically does have edema at baseline and she has had multiple amputation surgeries as noted. She endorses a chronic degree of dyspnea on exertion that she has to stop and rest when she walks but this is relatively unchanged compared to her most recent cardiology visit per her description. She denies orthopnea. Per her outpatient record she is prescribed furosemide 40 mg tablets, 2 tablets by mouth 1 day a week alternating with 3 tablets the next day. 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 normal coronary artery disease by August 2010 catheterization at [facility] -Patient underwent pharmacologic nuclear stress test September, with normal perfusion, patient noted to have Mobitz type I second-degree AV block (Wenckebach block) during the stress with transient accelerated junctional rhythm rate in the 70s, LVEF by gated SPECT technique 55% at that time --Seen by EP in September, ongoing observation recommended from a rhythm standpoint 4.Renal cell carcinoma s/p right nephrectomy 2001 5.Chronic kidney disease, stage 3b 6.Longstanding, previously poorly controlled, type II diabetes mellitus 7.Peripheral vascular disease, status post amputation of all toes on the left, amputation of the right 5th toe, status post excision of metatarsal head of the left foot for osteomyelitis in May 2022. 8.Hypertension 9.Dyslipidemia 10.GERD 11.Obesity. Allergies Allergy/AdvReac Type Severity Reaction Status Date / Time ALEX Inhibitors Allergy Verified 11/26/23 09:01 brompheniramine [From Brovex] Allergy Verified 11/26/23 09:01 codeine Allergy Verified 11/26/23 09:01 Home Medications Medication Instructions Recorded Confirmed Type ezetimibe 10 mg tablet 10 mg PO QAM 10/14/18 03/06/24 History aspirin 81 mg tablet,delayed 81 mg PO QAM 10/08/19 03/06/24 History release (Adult Low Dose Aspirin) BD Ultra-Fine Kinza Pen Needle 32 #100 ea 10/22/19 03/06/24 Rx gauge x 5/32" (pen needle, diabetic) metoprolol succinate 50 mg 50 mg PO BID 07/21/20 03/06/24 History tablet,extended release 24 hr blood sugar diagnostic (FreeStyle #100 ea 07/22/20 03/06/24 Rx Precision Remigio Strips) insulin glargine 100 unit/mL (3 34 unit subcut BID 09/14/22 03/06/24 History mL) subcutaneous pen (Lantus Solostar U-100 Insulin) blood-glucose sensor (FreeStyle 05/30/23 03/06/24 History Jamal 3 Sensor device) furosemide 40 mg tablet 40 mg PO .COMPLEX 05/30/23 03/06/24 History insulin aspart U-100 100 unit/mL See Rx Instructions .Route .COMPLEX 05/30/23 03/06/24 History (3 mL) subcutaneous pen (Novolog FlexPen U-100 Insulin aspart) magnesium oxide 400 mg PO QAM 05/30/23 03/06/24 History liraglutide 0.6 mg/0.1 mL (18 mg/3 1.8 mg (0.3 mL) subcut DAILY 90 02/18/24 03/06/24 Rx mL) subcutaneous pen injector days #27 mL (Victoza 3-Clint) atorvastatin 80 mg tablet 80 mg PO HS 03/06/24 03/06/24 History isosorbide mononitrate 60 mg 60 mg PO QAM 03/06/24 03/06/24 History tablet,extended release 24 hr Patient History Surgical History Hx of section Hx of unilateral nephrectomy History of tonsillectomy Family History Mother Diabetes Stroke Sister Stroke Father Diabetes Social History Smoking Status: Never smoker Second Hand Exposure: No; Do You Dip or Chew Tobacco: No; Hx Alcohol Use: No Hx Substance Use: No Preferred Language: Nicaraguan Communication Ability: Effective Track [employer] Supervisor Required: No Beliefs That Will Affect Care: None Current Living Situation: Spouse and Family Current Living Situation Comment: In laws Other Information That Helps Us Care for You: No Feels Safe at Home: Yes Safety Concerns: Feels Safe At This Time Assistive Devices: Glasses Review of Systems Review of Systems: All systems reviewed & are unremarkable except as noted in HPI & below Physical Exam Physical Exam: General: no acute distress and stated age Eyes: conjunctiva are pink and non-injected, sclera clear Neck: normal jugular venous pulse, no hepatojugular reflux Chest: normal shape and normal respiratory effort Lungs: clear to auscultation and percussion Cardiac Exam: - regular heart sounds, no murmurs, rubs, or gallops, no jugular venous distention Abdomen: abdomen soft, non-tender, no abnormal masses and no hepatosplenomegaly Musculoskeletal: no gait disturbance, no weakness Extremities: 2+ right lower extremity edema, no erythema, left lower extremity with previous toe and transmetatarsal amputation, 1-2+ edema, no erythema Neuro:awake, conversant, follows commands, no focal motor deficits Psych: appropriate affect and insight. Results & Data Vital Signs (Past 12 Hours) Vital Signs Pulse Pulse Pulse Resp BP Pulse Ox Pulse Ox 03/07/24 07:06 86 03/07/24 03:51 77 22 120/64 96 03/07/24 02:49 84 22 120/67 93 03/07/24 02:49 93 03/07/24 00:19 79 03/07/24 00:00 81 20 129/59 L 93 03/06/24 22:43 84 20 147/83 H 95 O2 Del Method O2 Del Method O2 Flow Rate 03/07/24 07:06 03/07/24 03:51 Nasal Cannula 1 03/07/24 02:49 Room Air 03/07/24 02:49 Room Air 03/07/24 00:19 03/07/24 00:00 Room Air 03/06/24 22:43 Room Air Laboratory Results Cardiac Enzymes 03/06/24 03/06/24 03/07/24 Range/Units 18:30 20:12 04:41 AST 19 (13-39) U/L Troponin I High Sens 63.6 H* 51.5 H* D 67.7 H* D (0-14) pg/ml B-Natriuretic Peptide 153 H (0-100) pg/ml Coagulation 03/06/24 Range/Units 18:30 PT 12.0 (9.0-12.0) Seconds APTT 27 (21-31) Seconds B-Natriuretic Peptide 153 H (0-100) pg/ml CBC 03/06/24 03/07/24 Range/Units 18:30 04:41 WBC 11.37 H 9.03 (4.8-10.8) K/ul RBC 4.42 4.21 (4.20-5.40) M/uL Hgb 12.4 11.9 L (12.0-16.0) g/dl Hct 37.9 36.0 L (37.0-47.0) % Plt Count 412 H 374 (130-400) K/uL Neut # (Auto) 8.30 H 5.88 (1.40-6.50) K/uL Lymph # (Auto) 1.60 1.83 (1.20-3.40) K/uL Mckean # (Auto) 1.00 H 0.97 H (0.11-0.59) K/uL Eos # (Auto) 0.34 0.24 (0.00-0.50) K/uL Baso # (Auto) 0.08 0.08 (0.00-0.20) K/uL Comprehensive Metabolic Panel 03/06/24 03/07/24 Range/Units 18:30 04:41 Sodium 136 136 (136-145) mmol/L Potassium 4.1 3.9 (3.5-5.1) mmol/L Chloride 100 101 (98-107) mmol/L Carbon Dioxide 27 27 (21-32) mmol/L BUN 50 H 53 H (6-23) mg/dl Creatinine 1.78 H 1.75 H (0.6-1.2) mg/dl Glucose 109 H 189 H (70-99(Fasting)) mg/dl Calcium 9.1 8.6 (8.6-10.3) mg/dl AST 19 (13-39) U/L ALT 12 (7-52) U/L Alkaline Phosphatase 111 H (34-104) U/L Total Protein 7.7 (6.0-8.3) gm/dl Albumin 3.9 (3.4-5.0) gm/dl BNP level 153 PG per mL Intake and Output 03/06/24 03/07/24 03/07/24 22:59 06:59 14:59 Intake Total 50 / 50 Balance 50 / 50 Intake: IV 50 / 50 cefTRIAXone SODIUM 2,000 mg In 50 / 50 50 ml @ 100 mls/hr IV Q24H [facility] Rx#:[id number] Other: Weight 108.3 kg 108.3 kg Weight Measurement Method Built in [facility] Diagnostic Findings Chest x-ray performed 03/06/2024: Radiology report describes mild bilateral hilar vascular congestion Radiology report of CT angiogram performed 03/06/2024: No pulmonary embolism, interseptal thickening concerning for pulmonary edema, 7 mm left upper lobe pulmonary nodule Lower extremity venous duplex: No evidence of DVT EKG performed 03/06/2024 1836 and interpreted independently reveals sinus rhythm with Mobitz type I second-degree AV block, Wenckebach block, and what appears to be an accelerated junctional rhythm, rate 87 bpm. Telemetry reveals Mobitz type I second-degree AV block with ventricular rate in the 80s to 90s. (2) Cardiomyopathy Cardiomyopathy type: unspecified Qualified Code(s): I42.9 - Cardiomyopathy, unspecified
[2024-03-07] MEDS: ASPIRIN 81 MG ECTAB PO SCH (09:47)
[2024-03-07] MEDS: MAGNESIUM OXIDE 400 MG TAB PO SCH (09:47)
[2024-03-07] MEDS: ISOSORBIDE MONO EXTENDED REL 60 MG TABCR PO SCH (09:47)
[2024-03-07] MEDS: EZETIMIBE 10 MG TAB PO SCH (09:47)
[2024-03-07] MEDS: FUROSEMIDE 40 MG/4 ML VIAL IV SCH (09:48)
[2024-03-07] MEDS: METOPROLOL SUCC 50MG EXT REL TAB PO SCH (09:48)
[2024-03-07] MEDS: LANTUS PER UNIT CHARGE SQ SCH ×2 (09:53→20:51)
--- NOTE | 2024-03-07 14:10 | CT Scan Report ---
CT tib/fib RT wo con CLINICAL HISTORY: unilateral swelling, no DVT COMPARISON STUDY: Right lower extremity venous Doppler ultrasound March 06, 2024. TECHNIQUE: Axial images of the right lower leg/tibia and fibula were obtained without IV contrast. Au tomated exposure control was utilized for the study. A dose lowering technique was utilized adhering to the principles of ALARA. FINDINGS: There is extensive right lower leg subcutaneous fluid, greater laterally. There is associat ed skin thickening. No fluid collections are identified. No intramuscular fluid collection is identif ied on this examination. There are no fractures within the right tibia or fibula. Varicosities are no cate. Extensive right midfoot deformity is partially imaged on this exam. Specifically, there is fragm entation, sclerosis and fractures within the visualized right midfoot. Fracture/fragmentation involvi ng the distal talus, navicular and the visualized tarsal bones. Gas within several articulations as w ell as overlying the dorsal midfoot is present. IMPRESSION: 1. Extensive right lower leg subcutaneous fluid, greater laterally. Associated skin thickening. The f indings could reflect edema or cellulitis. No fluid collection within the right calf. 2. No fractures within the right tibia or fibula. No evidence for acute osteomyelitis. 3. Markedly abnormal appearance of the right midfoot, partially imaged on this exam. Fragmentation/fr actures, sclerosis and deformity within the midfoot. This favors a neuropathic arthropathy. Associate d gas may be degenerative in etiology. A superimposed infectious process cannot be excluded. ACT 112: Negative or not required by law. Electronically signed by: lLoyd Mariscal M.D. 03/07/2024 2:08 PM
--- NOTE | 2024-03-07 14:35 | Pharmacy Report ---
Pharmacy Glycemic Short Note 2 - Date of Service March 07, 2024 - Glycemic Short BSG Results (Last 24 hours): 03/06/24 03/07/24 03/07/24 18:30 02:07 04:41 Glucose 109 H 189 H POC Glucose 206 H 03/07/24 03/07/24 06:44 12:13 Glucose POC Glucose 179 H 156 H OUTPATIENT ANTIDIABETIC REGIMEN: * Lantus 34 units SC BID * Novolog 18 units SC AC plus sliding scale * Victoza 1.8 mg SC daily HbA1c: * 8.6% (03/07/24) ASSESSMENT: * 63 yo F admitted on 03/07/24 secondary to heart failure/cellulitis. Pharmacy has been consulted to assist with inpatient glycemic management. Patient is a Type 2 diabetic as an outpatient. Please refer to outpatient regimen and most recent HbA1c above. * BSG this AM was 179 mg/dL. Patient was started on basal and bolus based on weight and stress of 2 overnight. * Was NPO but ordered a diet to start with lunch. No change to Novolog as lunchtime BSG trended down. However, will change basal to a scaled dose BID that can provide more basal this evening if BSGs go high from eating. * Ceftriaxone for cellulitis. PLAN FOR INPATIENT GLYCEMIC CONTROL: * Basal insulin * Lantus 15-25 units SC BID (see eMAR for more details) * Bolus insulin * NovoLog per scale ACHS or Q6hrs while NPO * Goal Range: Low 110 mg/dL - High 140 mg/dL * Correction Factor: 20 mg/dL/unit * Nutritional / Prandial insulin per carb ratio of 1 unit per 7 grams CHO consumed
--- NOTE | 2024-03-07 15:22 | Hospitalist Progress Note ---
Date of Service March 07, 2024 Assessment & Plan (1) Acute CHF: Plan: 63-year-old female with past medical history significant for type 2 diabetes, diabetic peripheral neuropathy, hyperlipidemia, idiopathic cardiomyopathy, chronic diastolic CHF, hypertension, history of CAD, obesity, GERD, CKD stage III, bilateral vitreous hemorrhage, history of renal cell carcinoma, solitary kidney presents with right lower extremity swelling and pain. Patient reports that her right lower extremity started to swell from knee below for the last 2 to 3 weeks. Also reports some shortness of breath on exertion. Right Lower Extremity swelling Patient presented to the hospital with right lower extremity swelling gradually progressing in the last 2 to 3 weeks Venous duplex negative for DVT CT of the leg shows extensive right lower extremity subcutaneous fluid and associated skin thickening. No fracture is seen Tibia/fibula. Abnormal appearance of right midfoot with fragmentation/fractures, sclerosis and deformity; neuropathic arthropathy. Suspect that patient's lower extremity swelling has component of lymphedema associated with diabetic neuropathy along with some edema from heart failure. I also discussed findings of neuropathic arthropathy in her foot. She wants to obtain CT of the foot; however, she does not want podiatry consult as inpatient and would like to follow-up with her podiatry as outpatient. Plan to continue IV diuretics; apply KAE stockings. Plan to follow-up for further evaluation as outpatient with lymphedema clinic. Plan to obtain CT of the foot and follow-up with podiatry as outpatient. Acute on chronic CHF Patient reports shortness of breath on exertion. CTA chest shows pulmonary edema Echocardiogram shows mildly reduced left ventricular systolic function with EF of 45 to 50% Plan to continue IV diuretics Daily weights Mobitz type I heart block Known history of Mobitz type I second-degree heart block. Metoprolol dose decreased to 25 mg twice a day from 50 mg twice a day. Mild elevation of troponin Denies any chest pain Mostly demand ischemia Echo as above Type 2 diabetes Will cut back on light Lantus to 15 units twice daily Sliding scale Will monitor CKD stage III Presented creatinine 1.7 close to baseline Will follow repeat labs History of nonobstructive CAD On aspirin, statin and beta-pepe, continue Mobitz type I heart block Known history of Mobitz type I second-degree heart block. Metoprolol dose decreased to 25 mg twice a day from 50 mg twice a day. status post right nephrectomy in 2001 Peripheral vascular disease Amputation of left toes and amputation of Right fifth toe Status post excision of metatarsal head left foot for osteomyelitis in May 2022 On aspirin and statin, continue Hyperlipidemia On statin and Zetia, continue Hypertension On metoprolol succinate, Imdur and diuretics Will monitor DVT prophylaxis Heparin subcu Disposition Telemetry Full code. Time spent evaluating patient, direct bedside care, chart review, placing orders, interpretation of diagnostic studies, discussion with consultants, patient, and family members, as well as other required patient management activities is 50 minutes Please note the above document was generated using voice recognition software. It may contain grammatical, syntax or spelling errors. Any formal questions or concerns about the content, text or information contained within the body of this dictation should be directly addressed to the provider for clarification Admission and Anticipated Discharge Date Admission Date: March 06, 2024 Subjective Patient seen and examined at bedside. She is lying on the bed comfortably; not in distress Her family is also at bedside. Reports some improvement in the swelling of the right leg Review of Systems Review of Systems: All systems reviewed & are unremarkable except as noted in Subjective Physical Exam Physical Exam: General- Not in distress Head- atraumatic Eyes- PERRL. ENT- oropharynx clear Neck- supple, no JVD. Lungs- clear to auscultation no wheezing or crackles. Heart- regular rhythm; no murmur, no gallop. Abdomen- normal bowel sounds, soft, nontender, no distension Extremities- Right lower extremity bigger than left. Some pitting edema present as well bilaterally. Mild tenderness on palpation; no overlying erythema. Neuro- alert, oriented PERRL, no facial palsy; no dysarthria; moves extremities Results & Data Results & Data Vital Signs (Past 12 Hours) Vital Signs Pulse Pulse Resp BP Pulse Ox O2 Del Method O2 Flow Rate 03/07/24 15:09 81 03/07/24 14:35 Room Air 03/07/24 07:06 86 03/07/24 03:51 77 22 120/64 96 Nasal Cannula 1
[2024-03-07] MEDS: ATORVASTATIN 40 MG TAB PO SCH (20:50)
[2024-03-07] MEDS: METOPROLOL SUCC 25MG EXT REL TAB PO SCH (20:53)
[2024-03-08 06:41] LABS: Basophils # (auto) 0.08 K/uL (0.00-0.20); Basophils % (auto) 1.1 %; Eosinophils # (auto) 0.26 K/uL (0.00-0.50); Eosinophils % (auto) 3.5 %; Hematocrit (blood only) 39.7 % (37.0-47.0); Hemoglobin 12.5 g/dl (12.0-16.0); Immature Granulocytes # (auto) 0.03 K/uL (0.01-0.20); Immature Granulocytes % (auto) 0.4 %; Lymphocytes # (auto) 1.76 K/uL (1.20-3.40); Lymphocytes % (auto) 23.7 %; Mean Corpuscular Hemoglobin 27.7 pg (25.0-34.0); Mean Corpuscular Hgb Conc 31.5 g/dL (32.0-36.0); Mean Platelet Volume 9.9 fL (9.4-12.4); Monocytes # (auto) 0.75 K/uL (0.11-0.59); Monocytes % (auto) 10.1 %; Neutrophils # (auto) 4.56 K/uL (1.40-6.50); Neutrophils % (auto) 61.2 %; Platelet Count 363 K/uL (130-400); RDW Coefficient of Variation 12.3 % (11.5-14.5); RDW Standard Deviation 39.4 fL (36.4-46.3); Red Blood Count 4.51 M/uL (4.20-5.40); White Blood Count 7.44 K/ul (4.8-10.8)
[2024-03-08 06:51] LABS: BUN Creatinine Ratio 31.9 (10-20); Calcium 9.2 mg/dl (8.6-10.3); Creatinine Clr Calc Pharmacy 45.3 ml/min; Potassium 4.4 mmol/L (3.5-5.1)
[2024-03-08] MEDS: FUROSEMIDE 40 MG/4 ML VIAL IV SCH (08:02)
--- NOTE | 2024-03-08 08:33 | CT Scan Report ---
RIGHT FOOT CT WITHOUT CONTRAST CLINICAL HISTORY: Evaluation of neuropathic arthropathy. COMPARISON STUDY: CT of the right tibia and fibula March 07, 2024. TECHNIQUE: Axial images of the right foot were obtained without IV contrast. Sagittal and coronal ref ormats were viewed. Automated exposure control was utilized for the study. A dose lowering technique was utilized adhering to the principles of ALARA. FINDINGS: Extensive soft tissue swelling of the right ankle and foot is noted. No well defined fluid collection is identified on unenhanced examination. Markedly abnormal appearance of the right midfoot is noted, including fragmentation/fractures, sclerosis and deformity. The findings represent neuropa thic arthropathy. Gas within the calcaneocuboid and talonavicular articulations is present. There is also a small amount of gas along the dorsal midfoot. Extensive subchondral cystic change/erosions is present. Postoperative findings consistent with amputation of the right fifth digit. Deformity of the right fifth metatarsal head is chronic. No additional foci of soft tissue gas are present. There is posterior and plantar calcaneal spurring. IMPRESSION: 1. Marked right midfoot deformity consistent with a neuropathic arthropathy. Bony fragmentation, scle rosis and deformity, as detailed above. Subchondral cystic change/erosions are likely degenerative in etiology. Gas within the talonavicular and calcaneocuboid articulations and a small amount of gas al brissa the dorsal midfoot. These findings may be degenerative in etiology. However, a superimposed infec tious process cannot be excluded by imaging. 2. Extensive soft tissue swelling of the right ankle and foot. No well-defined fluid collections. No additional foci of soft tissue gas. 3. Status post right fifth digit amputation. ACT 112: Negative or not required by law. Electronically signed by: Lloyd Mariscal M.D. 03/08/2024 8:31 AM
--- NOTE | 2024-03-08 09:10 | Hospitalist Progress Note ---
Date of Service March 08, 2024 Assessment & Plan (1) Acute CHF: Plan: 63-year-old female with past medical history significant for type 2 diabetes, diabetic peripheral neuropathy, hyperlipidemia, idiopathic cardiomyopathy, chronic diastolic CHF, hypertension, history of CAD, obesity, GERD, CKD stage III, bilateral vitreous hemorrhage, history of renal cell carcinoma, solitary kidney presents with right lower extremity swelling and pain. Patient reports that her right lower extremity started to swell from knee below for the last 2 to 3 weeks. Also reports some shortness of breath on exertion. Right Lower Extremity swelling Neuropathic arthropathy ( Charcot foot syndrome) Patient presented to the hospital with right lower extremity swelling gradually progressing in the last 2 to 3 weeks Venous duplex negative for DVT CT of the leg shows extensive right lower extremity subcutaneous fluid and associated skin thickening. No fracture is seen Tibia/fibula. Abnormal appearance of right midfoot with fragmentation/fractures, sclerosis and deformity; neuropathic arthropathy. Foot CT shows marked right midfoot deformity consistent with neuropathic arthropathy with Bone fragmentation, sclerosis and deformity. Suspect that patient's lower extremity swelling has component of lymphedema associated with diabetic neuropathy along with some edema from heart failure. Patient also to be referred to Dr. Pace from vascular medicine for further evaluation as per cardiology as outpatient. Plan to continue IV diuretics; apply KAE stockings. Plan to follow-up for further evaluation as outpatient with lymphedema clinic. Patient wants to follow-up with podiatry as outpatient for neuropathic arthropathy; does not want inpatient evaluation. I went over the images of the CT of the foot with the patient at bedside. She verbalized understanding. Acute on chronic CHF Patient reports shortness of breath on exertion. CTA chest shows pulmonary edema Echocardiogram shows mildly reduced left ventricular systolic function with EF of 45 to 50% Plan to continue IV diuretics for now Daily weights Mobitz type I heart block Known history of Mobitz type I second-degree heart block. Metoprolol dose decreased to 25 mg twice a day from 50 mg twice a day. Mild elevation of troponin Denies any chest pain Mostly demand ischemia Echo as above Type 2 diabetes Will cut back on light Lantus to 15 units twice daily Sliding scale Will monitor CKD stage III Presented creatinine 1.7 close to baseline at baseline History of nonobstructive CAD On aspirin, statin and beta-pepe, continue Mobitz type I heart block Known history of Mobitz type I second-degree heart block. Metoprolol dose decreased to 25 mg twice a day from 50 mg twice a day. status post right nephrectomy in 2001 Peripheral vascular disease Amputation of left toes and amputation of Right fifth toe Status post excision of metatarsal head left foot for osteomyelitis in May 2022 On aspirin and statin, continue Hyperlipidemia On statin and Zetia, continue Hypertension On metoprolol succinate, Imdur and diuretics Will monitor DVT prophylaxis Heparin subcu Disposition Telemetry Full code. Time spent evaluating patient, direct bedside care, chart review, placing orders, interpretation of diagnostic studies, discussion with consultants, patient, and family members, as well as other required patient management activities is 50 minutes Please note the above document was generated using voice recognition software. It may contain grammatical, syntax or spelling errors. Any formal questions or concerns about the content, text or information contained within the body of this dictation should be directly addressed to the provider for clarification Admission and Anticipated Discharge Date Admission Date: March 06, 2024 Subjective Patient seen and examined at bedside She is lying on the bed comfortably; not in distress No significant events overnight The swelling on the right leg has improved compared to previous day. Review of Systems Review of Systems: All systems reviewed & are unremarkable except as noted in Subjective Physical Exam Physical Exam: General- Not in distress Head- atraumatic Eyes- PERRL. ENT- oropharynx clear Neck- supple, no JVD. Lungs- clear to auscultation no wheezing or crackles. Heart- regular rhythm; no murmur, no gallop. Abdomen- normal bowel sounds, soft, nontender, no distension Extremities- Right lower extremity bigger than left( improved compared to previous day). Some pitting edema present as well bilaterally. Mild tenderness on palpation; no overlying erythema. Neuro- alert, oriented PERRL, no facial palsy; no dysarthria; moves extremities Results & Data Results & Data Vital Signs (Past 12 Hours) Vital Signs Temp Pulse Pulse Resp BP Pulse Ox O2 Del Method 03/08/24 08:00 Room Air 03/08/24 07:57 36.7 C 78 18 133/73 92 Room Air 03/08/24 04:57 36.7 C 80 16 138/76 92 Room Air 03/07/24 23:53 36.9 C 87 87 16 144/79 H 97 Room Air 03/07/24 21:42 Room Air
--- NOTE | 2024-03-08 12:30 | Cardiology Progress Note ---
Date of Service March 08, 2024 Assessment & Plan (1) Acute CHF: (2) Cardiomyopathy: Plan: Acute on chronic heart failure with mildly reduced ejection fraction, clinical history of nonischemic cardiomyopathy, mild left ventricular systolic dysfunction, echocardiogram relatively unchanged compared to previous outpatient study dating back to June,. Nonischemic nuclear stress test June, Patient with mild troponin elevation, flat trend, findings radiographically on CT angiogram consistent with mild pulmonary edema. Intermittent Mobitz type I second-degree AV block (Wenckebach block) with incomplete left bundle branch block. Agree with having held her oral furosemide in favor of IV furosemide 40 mg IV twice daily. With tentative plan to transition back to her previous dose of furosemide 40 mg by mouth alternating with 60 mg daily. Patient has a recent history of known Mobitz type I second-degree AV block. This is re-demonstrated on telemetry at present. Will cautiously continue metoprolol for now and repeat an EKG, ventricular rates in the 80s 200s without bradycardia. It is difficult to discern if the new edema of the right lower extremity is due to volume overload or rather venous insufficiency/lymphedema. She otherwise does not appear to be volume overloaded. I am going to refer her to Dr. Thomas Pace of [facility] [place] for outpatient endovascular medicine consultation for venous insufficiency. Referral placed in outpatinet chart. Cardiology to sign off . Call with questions or concerns. Admission and Anticipated Discharge Date Admission Date: March 06, 2024 Subjective Patient seen in cardiology follow-up. Telemetry reveals sinus rhythm in the 70s with intermittent Mobitz type I second-degree AV block (Wenckebach block), no significant bradycardia. Patient believes that her lower extremity edema is improved. She denies orthopnea or shortness of breath of significance at a proportion to her usual. Physical Exam Physical Exam: General: no acute distress and stated age Eyes: conjunctiva are pink and non-injected, sclera clear Neck: normal jugular venous pulse, no hepatojugular reflux Chest: normal shape and normal respiratory effort Lungs: clear to auscultation and percussion Cardiac Exam: - regular heart sounds, no murmurs, rubs, or gallops, no jugular venous distention Abdomen: abdomen soft, non-tender, no abnormal masses and no hepatosplenomegaly Musculoskeletal: no gait disturbance, no weakness Extremities: 2+ right lower extremity edema, no erythema, left lower extremity with previous toe and transmetatarsal amputation, 1-2+ edema, no erythema Neuro:awake, conversant, follows commands, no focal motor deficits Psych: appropriate affect and insight. Results & Data Vital Signs (Past 12 Hours) Vital Signs Temp Pulse Resp BP Pulse Ox O2 Del Method 03/08/24 11:44 36.6 C 74 18 149/76 H 95 Room Air 03/08/24 08:00 Room Air 03/08/24 07:57 36.7 C 78 18 133/73 92 Room Air 03/08/24 04:57 36.7 C 80 16 138/76 92 Room Air Laboratory Results Cardiac Enzymes 03/07/24 Range/Units 17:18 Troponin I High Sens 64.3 H* (0-14) pg/ml CBC 03/08/24 Range/Units 05:32 WBC 7.44 (4.8-10.8) K/ul RBC 4.51 (4.20-5.40) M/uL Hgb 12.5 (12.0-16.0) g/dl Hct 39.7 (37.0-47.0) % Plt Count 363 (130-400) K/uL Neut # (Auto) 4.56 (1.40-6.50) K/uL Lymph # (Auto) 1.76 (1.20-3.40) K/uL Jerauld # (Auto) 0.75 H (0.11-0.59) K/uL Eos # (Auto) 0.26 (0.00-0.50) K/uL Baso # (Auto) 0.08 (0.00-0.20) K/uL Comprehensive Metabolic Panel 03/08/24 Range/Units 05:32 Sodium 138 (136-145) mmol/L Potassium 4.4 (3.5-5.1) mmol/L Chloride 101 (98-107) mmol/L Carbon Dioxide 29 (21-32) mmol/L BUN 52 H (6-23) mg/dl Creatinine 1.63 H (0.6-1.2) mg/dl Glucose 167 H (70-99(Fasting)) mg/dl Calcium 9.2 (8.6-10.3) mg/dl Intake and Output 03/07/24 03/08/24 03/08/24 22:59 06:59 14:59 Intake Total 240 / 530 290 / 530 Output Total 900 / 900 Balance 240 / -370 -610 / -370 Intake: IV 50 / 50 cefTRIAXone SODIUM 2,000 mg In 50 / 50 50 ml @ 100 mls/hr IV Q24H [facility] Rx#:[id number] Oral 240 / 480 240 / 480 Output: Urine 900 / 900 Other: # Unmeasured Voids 1 1 Weight 105.7 kg 104.6 kg Weight Measurement Method Standing Scale Diagnostic Findings EKG performed today 03/08/2024 at 549 and interpret independently sinus rhythm with Mobitz type I second-degree AV block, left bundle branch block. Transthoracic echocardiogram performed 03/07/2024, mild diffuse left ventricular hypokinesis, LVEF in the range of 45 to 50%, trace mitral regurgitation (2) Cardiomyopathy Cardiomyopathy type: unspecified Qualified Code(s): I42.9 - Cardiomyopathy, unspecified
--- NOTE | 2024-03-08 13:40 | Pharmacy Report ---
Pharmacy Glycemic Short Note 2 - Date of Service March 08, 2024 - Glycemic Short BSG Results (Last 24 hours): 03/07/24 03/07/24 03/08/24 17:35 20:25 05:32 Glucose 167 H POC Glucose 173 H 263 H 03/08/24 03/08/24 07:07 10:58 Glucose POC Glucose 175 H 153 H OUTPATIENT ANTIDIABETIC REGIMEN: * Lantus 34 units SC BID * Novolog 18 units SC AC plus sliding scale * Victoza 1.8 mg SC daily HbA1c: * 8.6% (03/07/24) ASSESSMENT: 03/08: * Gina received 62 units of insulin yesterday, 40 basal + 22 bolus. BSGs were: 340-560-432-263 mg/dL. * Fasting BSG 175 mg/dL this AM. Will increase basal scale slightly today. Remains on Ceftriaxone. * Also tightened Novolog parameters this AM given postprandials all above goal yesterday. 03/07: * 63 yo F admitted on 03/07/24 secondary to heart failure/cellulitis. Pharmacy has been consulted to assist with inpatient glycemic management. Patient is a Type 2 diabetic as an outpatient. Please refer to outpatient regimen and most recent HbA1c above. * BSG this AM was 179 mg/dL. Patient was started on basal and bolus based on weight and stress of 2 overnight. * Was NPO but ordered a diet to start with lunch. No change to Novolog as lunchtime BSG trended down. However, will change basal to a scaled dose BID that can provide more basal this evening if BSGs go high from eating. * Ceftriaxone for cellulitis. PLAN FOR INPATIENT GLYCEMIC CONTROL: * Basal insulin * Lantus 20-30 units SC BID (see eMAR for more details) * Bolus insulin * NovoLog per scale ACHS or Q6hrs while NPO * Goal Range: Low 110 mg/dL - High 140 mg/dL * Correction Factor: 15 mg/dL/unit * Nutritional / Prandial insulin per carb ratio of 1 unit per 5 grams CHO consumed
[2024-03-09 07:11] LABS: Basophils # (auto) 0.08 K/uL (0.00-0.20); Basophils % (auto) 0.9 %; Eosinophils # (auto) 0.35 K/uL (0.00-0.50); Eosinophils % (auto) 3.9 %; Hematocrit (blood only) 38.6 % (37.0-47.0); Hemoglobin 12.1 g/dl (12.0-16.0); Immature Granulocytes # (auto) 0.04 K/uL (0.01-0.20); Immature Granulocytes % (auto) 0.4 %; Lymphocytes # (auto) 2.17 K/uL (1.20-3.40); Lymphocytes % (auto) 24.2 %; Mean Corpuscular Hemoglobin 27.3 pg (25.0-34.0); Mean Corpuscular Hgb Conc 31.3 g/dL (32.0-36.0); Mean Corpuscular Volume 87.1 fL (80.0-100.0); Mean Platelet Volume 10.1 fL (9.4-12.4); Monocytes # (auto) 0.72 K/uL (0.11-0.59); Neutrophils # (auto) 5.61 K/uL (1.40-6.50); Neutrophils % (auto) 62.6 %; Platelet Count 374 K/uL (130-400); RDW Coefficient of Variation 12.2 % (11.5-14.5); RDW Standard Deviation 39.2 fL (36.4-46.3); Red Blood Count 4.43 M/uL (4.20-5.40); White Blood Count 8.97 K/ul (4.8-10.8)
[2024-03-09 07:20] VITALS: RESP 18
[2024-03-09 07:29] LABS: BUN Creatinine Ratio 29.6 (10-20); Calcium 9.3 mg/dl (8.6-10.3); Creatinine Clr Calc Pharmacy 39.9 ml/min; Potassium 4.9 mmol/L (3.5-5.1)
--- NOTE | 2024-03-09 08:53 | Electrocardiogram Report ---
Test Reason : Blood Pressure : */* mmHG Vent. Rate : 87 BPM Atrial Rate : 93 BPM P-R Int : * ms QRS Dur : 116 ms QT Int : 376 ms P-R-T Axes : 55 -29 120 degrees QTcB Int : 452 ms Sinus rhythm with Mobitz I (Wenckebach) block Borderline Non-specific intra-ventricular conduction delay , LBB type Cannot rule out Anterolateral infarct , age undetermined Abnormal ECG No previous ECGs available Confirmed by Torsten Gallego ([id number]) on 03/09/2024 8:52:38 AM Referred By: Confirmed By: Torsten Gallego
--- NOTE | 2024-03-09 09:11 | Discharge Summary ---
Date of Service March 09, 2024 Admission HPI Per Admitting Provider 63-year-old female with past medical history significant for type 2 diabetes, diabetic peripheral neuropathy, hyperlipidemia, idiopathic cardiomyopathy, chronic diastolic CHF, hypertension, history of CAD, obesity, GERD, CKD stage III, bilateral vitreous hemorrhage, history of renal cell carcinoma, solitary kidney presents with right lower extremity swelling and pain. Patient says her left lower extremity swelling is same as before. But right lower extremity is more swollen since last 2 -3 weeks and progressively getting worse. Last couple of weeks she is having pain in the right lower extremity. And she developed erythema in the right lower extremity about a week ago. Able to put weight on the leg. Denies any fevers. Denies any chest pain. Has shortness of breath on exertion which seems to progressively worsen. Has dry cough. Somewhat constipated. Denies blood in stool or black stools. Micturating okay. No nausea. Appetite is okay. Currently no headache. No dizziness. Vision is okay. No earache or runny nose or sore throat. Hemodynamics are okay. Past medical history. As mentioned above Past surgical history. Amputation of left third toe. Amputation of left second toe. . Colonoscopy. Colonoscopy with 30 mm polyp removed. Removal of right kidney for renal cell cancer. Tonsillectomy and adenoidectomy. Social history. . No smoking. No alcohol use. No drug use. Family history. Mother had diabetes. Osteoarthritis. Father had diabetes. Sister has diabetes. Brother has diabetes. Admission Exam Per Admitting Provider General- Not in distress Head- atraumatic Eyes- PERRL. ENT- oropharynx clear Neck- supple, no JVD. Lungs- clear to auscultation no wheezing or crackles. Heart- regular rhythm; no murmur, no gallop. Abdomen- normal bowel sounds, soft, nontender, no distension Extremities- b/l lower extremity edema present Rt >Lt. Mild erythema in distal right lower extremity with mild warmth on palpation. Neuro- alert, oriented PERRL, no facial palsy; no dysarthria; moves extremities Principal Diagnosis Right Lower Extremity swelling Neuropathic arthropathy ( Charcot foot syndrome) Acute on chronic CHF Discharge Exam General- Not in distress Head- atraumatic Eyes- PERRL. ENT- oropharynx clear Neck- supple, no JVD. Lungs- clear to auscultation no wheezing or crackles. Heart- regular rhythm; no murmur, no gallop. Abdomen- normal bowel sounds, soft, nontender, no distension Extremities- Right lower extremity bigger than left( improved compared to previous day). Some pitting edema present as well bilaterally. Mild tenderness on palpation; no overlying erythema. Neuro- alert, oriented PERRL, no facial palsy; no dysarthria; moves extremities Discharge Data Allergies Allergy/AdvReac Type Severity Reaction Status Date / Time ALEX Inhibitors Allergy Verified 11/26/23 09:01 brompheniramine [From Brovex] Allergy Verified 11/26/23 09:01 codeine Allergy Verified 11/26/23 09:01 Consultations 03/07/24 08:00 Consult Cardiology Routine 03/08/24 09:08 Burn CD for patient Routine Ordered Studies 03/06/24 19:34 CT for pulmonary embolism PE [CT angio chest PE protocol] Stat 03/06/24 21:03 US venous doppler LE BI Stat 03/07/24 12:35 CT tib/fib RT wo con Urgent 03/07/24 15:09 CT foot RT wo con Routine Hospital Course (1) Acute CHF: 63-year-old female with past medical history significant for type 2 diabetes, diabetic peripheral neuropathy, hyperlipidemia, idiopathic cardiomyopathy, chronic diastolic CHF, hypertension, history of CAD, obesity, GERD, CKD stage III, bilateral vitreous hemorrhage, history of renal cell carcinoma, solitary kidney presents with right lower extremity swelling and pain. Patient reports that her right lower extremity started to swell from knee below for the last 2 to 3 weeks. Also reports some shortness of breath on exertion. Right Lower Extremity swelling Neuropathic arthropathy ( Charcot foot syndrome) Patient presented to the hospital with right lower extremity swelling gradually progressing in the last 2 to 3 weeks Venous duplex negative for DVT CT of the leg shows extensive right lower extremity subcutaneous fluid and associated skin thickening. No fracture is seen Tibia/fibula. Abnormal appearance of right midfoot with fragmentation/fractures, sclerosis and deformity; neuropathic arthropathy. Foot CT shows marked right midfoot deformity consistent with neuropathic arthropathy with Bone fragmentation, sclerosis and deformity. Suspect that patient's lower extremity swelling has component of lymphedema associated with diabetic neuropathy along with some edema from heart failure. Patient also to be referred to Dr. Pace from vascular medicine for further evaluation as per cardiology as outpatient for possible venous insufficiency. Patient wants to follow-up with podiatry as outpatient for neuropathic arthropathy; does not want inpatient evaluation. I went over the images of the CT of the foot with the patient at bedside. She verbalized understanding. Acute on chronic CHF Patient reports shortness of breath on exertion. CTA chest shows pulmonary edema Echocardiogram shows mildly reduced left ventricular systolic function with EF of 45 to 50% Patient was diuresed with IV Lasix during the hospitalization with improvement in bilateral lower extremity edema. She was discharged on her previous home dose of Lasix. Mobitz type I heart block Known history of Mobitz type I second-degree heart block. Metoprolol dose decreased to 25 mg twice a day from 50 mg twice a day. Please note the above document was generated using voice recognition software. It may contain grammatical, syntax or spelling errors. Any formal questions or concerns about the content, text or information contained within the body of this dictation should be directly addressed to the provider for clarification Total Time Total Time Spent Total Time Spent (In Minutes): 45 Total Time Includes: Examination of the Patient, Discharge Planning, Medication Reconciliation, Communication With Other Providers and Other Discharge Plan Discharge Items Patient Disposition: Home - Self-Care Reason For Visit: ACUTE CHF, RIGHT LEG CELLULITIS Discharge Diagnosis: Right Lower Extremity swelling Neuropathic arthropathy ( Charcot foot syndrome) Acute on chronic CHF Activity: Resume your previous activity Non-emergency contact: Primary Care Provider Call non-emergency contact if: you have any medication questions and your symptoms worsen Follow-up/Referrals: Promise Sandoval MD [Primary Care Provider] - (Date & Time 03/16/2024 5:00 PM Provider: Promise Sandoval MD Department: Family Medicine [facility] ) Diet: Regular Addtl Attending Provider Instructions: You were admitted to the hospital with swelling of your right leg. You underwent evaluation with venous duplex and CT. It did not show any clot. The edema is most likely due to heart failure and possible lymphedema, venous insufficiency. An appointment will be set up for you with your primary care doctor for further workup. A referral has been made with vascular medicine physician Dr. Pace for further evaluation as well. You are found to have arthropathy in the midfoot secondary to the neuropathy. As we have discussed, please follow-up with podiatry and discuss further management. You are also treated with IV diuretics during the hospitalization for the heart failure. Please continue to take diuretics as you are doing previously. Please measure your weight daily at home at the same time and keep a log of it. If you notice your weight has increased more than 3 pounds, notice your leg swelling has increased; take extra dose of Lasix in the afternoon and contact your primary care doctor or automotive general sales manager The dose of the metoprolol has been decreased to 25 mg twice a day Pending Studies at Discharge: No Stand-Alone Forms: My [facility], Smoking Cessation Medications and DC Order Prescriptions: New metoprolol succinate 25 mg Tablet Extended Release 24 Hr 25 mg PO BID Qty: 60 0RF Continued ezetimibe 10 mg tablet 10 mg PO QAM (DME) pen needle, diabetic [BD Ultra-Fine Kinza Pen Needle] 32 gauge x 5/32" needle See Dose Instructions .ROUTE .MEDSUPPLY Qty: 100 3RF Dose Instruction: As directed Rx Instructions: use once daily with victoza (DME) FreeStyle Precision Remigio Strips Strip See Rx Instructions .ROUTE .MEDSUPPLY Qty: 100 3RF Rx Instructions: test blood sugar once daily furosemide 40 mg tablet 40 mg PO .COMPLEX Rx Instructions: 40 mg orally bid alternating with tid; Victoza 3-Clint 0.6 mg/0.1 mL (18 mg/3 mL) pen injector 1.8 mg subcut DAILY 90 Days Qty: 27 3RF Lantus Solostar U-100 Insulin 100 unit/mL (3 mL) insulin pen 34 unit subcut BID insulin aspart U-100 [Novolog FlexPen U-100 Insulin] 100 unit/mL (3 mL) insulin pen See Rx Instructions .ROUTE .COMPLEX Rx Instructions: Inject 18 u with meals plus sliding scale. Reduce to 9 u if active or eating less than usual. up to TDD 60 units aspirin [Adult Low Dose Aspirin] 81 mg tablet,delayed release (DR/EC) 81 mg PO QAM magnesium oxide 400 mg magnesium capsule 400 mg PO QAM (DME) FreeStyle Jamal 3 Sensor Device See Rx Instructions .Route Rx Instructions: As directed atorvastatin 80 mg tablet 80 mg PO HS isosorbide mononitrate 60 mg tablet extended release 24 hr 60 mg PO QAM Discontinued metoprolol succinate 50 mg tablet extended release 24 hr 50 mg PO BID Discharge Orders: Discharge Order (Routine); Ordered 03/09/24 Ordered By: Chago Dalton/Other Patient Handouts: Heart Failure Meds, What Is Heart Failure, Heart Failure Flare Up Signs, Heart Failure: Tracking Your Weight, Managing Type 2 Diabetes, Heart Failure Assessment, Heart Failure Dc Admission Data Admit Date/Time: 03/06/24 23:20 Attending Provider: Chago Radford Admit Provider: Edwar Berry Primary Care Provider: Promise Sandoval Other Providers: Brad Garcia Other Interventions: Discharge Summary Assessment (RN) Last Done: 03/09/24 11:08
[2024-03-09 11:09] VITALS: BP 146/68; PULSE 78; TEMP 98.6; O2SAT 92
--- NOTE | 2024-03-09 15:38 | Electrocardiogram Report ---
Test Reason : Blood Pressure : */* mmHG Vent. Rate : 69 BPM Atrial Rate : 79 BPM P-R Int : * ms QRS Dur : 120 ms QT Int : 452 ms P-R-T Axes : 20 -28 128 degrees QTcB Int : 484 ms Sinus rhythm with 2nd degree A-V block (Mobitz I) Minimal voltage criteria for LVH, may be normal variant ( Reji product ) Anterolateral infarct (cited on or before 06-Mar-2024) Abnormal ECG When compared with ECG of 06-Mar-2024 18:36, (unconfirmed) No significant change Confirmed by Torsten Gallego ([id number]) on 03/09/2024 3:38:02 PM Referred By: Promise Sandoval Confirmed By: Torsten Gallego
--- NOTE | 2024-03-09 17:06 | Electrocardiogram Report ---
Test Reason : Blood Pressure : */* mmHG Vent. Rate : 70 BPM Atrial Rate : 76 BPM P-R Int : * ms QRS Dur : 126 ms QT Int : 416 ms P-R-T Axes : 41 -30 150 degrees QTcB Int : 449 ms Sinus rhythm with 2nd degree A-V block (Mobitz I) Left axis deviation Left bundle branch block Abnormal ECG When compared with ECG of 07-Mar-2024 11:50, (unconfirmed) No significant change Confirmed by Torsten Gallego ([id number]) on 03/09/2024 5:05:37 PM Referred By: Promise Sandoval Confirmed By: Torsten Gallego
--- NOTE | 2024-03-10 06:35 | Electrocardiogram Report ---
Test Reason : Blood Pressure : */* mmHG Vent. Rate : 73 BPM Atrial Rate : 73 BPM P-R Int : 334 ms QRS Dur : 120 ms QT Int : 420 ms P-R-T Axes : 91 -25 161 degrees QTcB Int : 462 ms Poor data quality, interpretation may be adversely affected Sinus rhythm with 1st degree A-V block Borderline Left bundle branch block Abnormal ECG When compared with ECG of 08-Mar-2024 05:49, (unconfirmed) Sinus rhythm is no longer with 2nd degree A-V block (Mobitz I) Confirmed by Torsten Gallego ([id number]) on 03/10/2024 6:35:08 AM Referred By: Promise Sandoval Confirmed By: Torsten Gallego
== END 2024-03-09 12:35 | disposition home or self-care (01) | DRG 291 ==
LOC: ED 17:47 → EDINP 23:20 → SUATTDRO 23:20 → 2E 03-07 01:13